=== PATIENT | male | born 1955 | race Caucasian/White ===

== ENCOUNTER 2020-05-22 08:13 | Emergency (ER) | payer MEDICARE, MEDICAID, SELFPAY ==
[2020-05-22 08:22] VITALS: BP 188/107; PULSE 79; RESP 18; TEMP 36.8; O2SAT 97; BMI 22.2
--- NOTE | 2020-05-22 08:40 | XR_ITS ---
EXAMINATION: XR KNEE, RIGHT CLINICAL INFORMATION: Swelling and pain COMPARISON: None TECHNIQUE: Four views of the right knee. FINDINGS: Bones and soft tissues are normal. No fracture or joint effusion. Alignment is anatomic. Joint spaces are well maintained. No abnormal soft tissue calcification. XR/XR knee RT 4V IMPRESSION: Unremarkable right knee exam
--- NOTE | 2020-05-22 08:51 | ED_ITS ---
HPI - General Adult General Chief complaint: Extremity Injury, Lower <Olive Stephens NP - Last Filed: 05/22/20 11:46> Stated complaint: swollen knee cap <Olive Stephens NP - Last Filed: 05/22/20 11:46> Time Seen by Provider: 05/22/20 08:34 <Olive Stephens NP - Last Filed: 05/22/20 11:46> Source: patient <Olive Stephens NP - Last Filed: 05/22/20 11:46> Mode of arrival: ambulatory <Olive Stephens NP - Last Filed: 05/22/20 11:46> Limitations: no limitations <Olive Stephens NP - Last Filed: 05/22/20 11:46> History of Present Illness HPI narrative: 65-year-old male with a past medical history of hypertension not currently on any medications here with right knee swelling last week. No injury or trauma. No pain, redness, warmth, fevers or chills. <Olive Stephens NP - Last Filed: 05/22/20 11:46> Onset (ago): week(s) (1 week ) <Olive Stephens NP - Last Filed: 05/22/20 11:46> Radiation: non-radiation <Olive Stephens NP - Last Filed: 05/22/20 11:46> Severity: similar to prior episodes (no pain ) <Olive Stephens NP - Last Filed: 05/22/20 11:46> Relieving factors: none <Olive Stephens NP - Last Filed: 05/22/20 11:46> Exacerbating factors: none <Olive Stephens NP - Last Filed: 05/22/20 11:46> Associated symptoms: denies other symptoms <Olive Stephens NP - Last Filed: 05/22/20 11:46> Treatments prior to arrival: none <Olive Stephens NP - Last Filed: 05/22/20 11:46> Related Data Home medications: Previous Rx's Medication Instructions Recorded lisinopril 10 mg PO DAILY #30 tab 05/22/20 <Olive Stephens NP - Last Filed: 05/22/20 11:46> Allergies/adverse reactions: Allergies Allergy/AdvReac Type Severity Reaction Status Date / Time influenza virus vaccine, Allergy Unknown UNKNOWN Verified 05/22/20 08:35 specific [FLU VACCINE] <Olive Stephens NP - Last Filed: 05/22/20 11:46> Review of Systems Review of Systems: Yes all other systems are reviewed and are negative <Olive Stephens NP - Last Filed: 05/22/20 11:46> Constitutional: Constitutional: Reports no additional constitutional complaints, Denies body ache(s), Denies chills, Denies fever(s), Denies headache(s) and Denies weakness <Olive Stephens NP - Last Filed: 05/22/20 11:46> Eyes: Eyes: Reports no additional eye complaints and Denies change in vision <Olive Stephens NP - Last Filed: 05/22/20 11:46> ENT: Reports system reviewed and no additional complaints, except as documented, Denies dizziness, Denies headache(s), Denies nasal congestion, Denies nasal discharge and Denies neck pain <Olive Stephens NP - Last Filed: 05/22/20 11:46> Cardiovascular: Cardiovascular: Reports no additional cardiovascular complaints, Denies chest pain, Denies leg edema and Denies dyspnea <Olive Stephens NP - Last Filed: 05/22/20 11:46> Respiratory: Respiratory: Reports no additional respiratory complaints, Denies cough and Denies dyspnea <Olive Stephens NP - Last Filed: 05/22/20 11:46> Gastrointestinal: Gastrointestinal: Reports no additional gastrointestinal complaints, Denies abdominal pain, Denies diarrhea, Denies nausea and Denies vomiting <Olive Stephens NP - Last Filed: 05/22/20 11:46> Genitourinary: Genitourinary: Denies urinary incontinence <Olive Stephens NP - Last Filed: 05/22/20 11:46> Musculoskeletal: Musculoskeletal: Reports no additional musculoskeletal complaints, Denies back pain, Denies arthralgias, Reports joint swelling, Denies neck pain, Denies numbness and Denies tingling <Olive Stephens NP - Last Filed: 05/22/20 11:46> Integumentary/Breasts: Skin/Breast: Reports system reviewed and no additional complaints, except as docu and Denies rash <Olive Stephens NP - Last Filed: 05/22/20 11:46> Neurologic: Reports system reviewed and no additional complaints, except as documented, Denies Abnormal speech present, Denies dizziness, Denies headache(s), Denies numbness, Denies tingling and Denies weakness <Olive Stephens NP - Last Filed: 05/22/20 11:46> [facility] Past Medical History Attestation statement: The following information was validated with the patient. <Olive Stephens NP - Last Filed: 05/22/20 11:46> Source: obtained from family and nursing notes reviewed <Olive Stephens NP - Last Filed: 05/22/20 11:46> Medical History: Medical History HTN (hypertension) <Olive Stephens NP - Last Filed: 05/22/20 11:46> Surgical History: Surgical History Hx of abdominal surgery <Olive Stephens NP - Last Filed: 05/22/20 11:46> Social History Social History: Social History Alcohol intake: current Alcohol intake frequency: 0-2 drinks per day Alcohol type: beer Smoking Status: Former smoker Substance Use Type: Marijuana Advance Directives: No Advance Directives Information Provided: No <Olive Stephens NP - Last Filed: 05/22/20 11:46> Physical Exam Vital Signs: Vital Signs: Vital Signs Temp Pulse Resp BP Pulse Ox 05/22/20 10:23 65 159/91 H 97 05/22/20 09:41 80 197/107 H 05/22/20 08:22 98.3 F 79 18 188/107 H 97 Body Mass Index 22.2 <Olive Stephens NP - Last Filed: 05/22/20 11:46> Vital Signs: Vital Signs Temp Pulse Resp BP Pulse Ox 05/22/20 10:23 65 159/91 H 97 05/22/20 09:41 80 197/107 H 05/22/20 08:22 98.3 F 79 18 188/107 H 97 Body Mass Index 22.2 <Maykel Begum MD - Last Filed: 05/22/20 09:38> Const: General: cooperative, healthy appearing, comfortable and no acute distress <Olive Stephens NP - Last Filed: 05/22/20 11:46> Orientation/consciousness: patient oriented x3 <Olive Stephens NP - Last Filed: 05/22/20 11:46> Limitations: no limitations <Olive Stephens NP - Last Filed: 05/22/20 11:46> HENMT: Head: Yes normal to inspection <Olive Stephens NP - Last Filed: 05/22/20 11:46> Ears: hearing grossly normal bilaterally <Olive Stephens NP - Last Filed: 05/22/20 11:46> General nose exam: Normal external nose present <Olive Stephens NP - Last Filed: 05/22/20 11:46> Face and sinus: Yes normal facial exam <Olive Stephens NP - Last Filed: 05/22/20 11:46> Mouth: Normal oral and palatal mucosa present <Olive Stephens NP - Last Filed: 05/22/20 11:46> Throat: Yes posterior oropharynx normal <Olive Stephens NP - Last Filed: 05/22/20 11:46> Eyes: General: appearance normal, both eyes and all related structures <Olive Stephens NP - Last Filed: 05/22/20 11:46> Pupils: Equal, round and reactive pupils present <Olive Stephens NP - Last Filed: 05/22/20 11:46> Neck: Neck: Yes normal visual inspection <Olive Stephens NP - Last Filed: 05/22/20 11:46> Chest: Chest palpation & inspection: normal inspection of the chest <Olive Stephens NP - Last Filed: 05/22/20 11:46> Resp: Effort & Inspection: normal respiratory effort <Olive Stephens NP - Last Filed: 05/22/20 11:46> Auscultation: clear to auscultation bilaterally <Olive Stephens NP - Last Filed: 05/22/20 11:46> Cardio: Rate: regular rate <Olive Stephens NP - Last Filed: 05/22/20 11:46> Rhythm: regular rhythm <Olive Stephens NP - Last Filed: 05/22/20 11:46> Peripheral pulses: Peripheral pulses 2+ throughout <Olive Stephens NP - Last Filed: 05/22/20 11:46> GI: Inspection: Yes normal to inspection <Olive Stephens NP - Last Filed : 05/22/20 11:46> Palpation (GI): Soft to palpation and nontender <Olive Stephens NP - Last Filed: 05/22/20 11:46> Auscultation: normal bowel sounds <Olive Stephens NP - Last Filed: 05/22/20 11:46> Back/Spine/Pelvis: Thoracic/Lumbar Spine: thoracic and lumbar spine normal to inspection <Olive Stephens NP - Last Filed: 05/22/20 11:46> Skin: General skin exam: no rashes or lesions noted <Olive Stephens NP - Last Filed: 05/22/20 11:46> Neuro: General: patient oriented x3, no focal motor deficits and normal sensation to monofilament <Olive Stephens NP - Last Filed: 05/22/20 11:46> Cranial nerves: Yes Equal, round and reactive pupils present <Olive Stephens NP - Last Filed: 05/22/20 11:46> Cognition (Neuro): normal cognition <Olive Stephens NP - Last Filed: 05/22/20 11:46> Speech: No Abnormal speech present <Olive Stephens NP - Last Filed: 05/22/20 11:46> Gait exam (Neuro): Normal gait present <Olive Stephens NP - Last Filed: 05/22/20 11:46> Motor exam (neuro): 5/5 motor strength present throughout <Olive Stephens NP - Last Filed: 05/22/20 11:46> Extrem: General: Yes normal to inspection <Olive Stephens NP - Last Filed: 05/22/20 11:46> Right lower extremity: full ROM, edema ( Moderate swelling over the patellar and suprapatellar area.) Details: non-pitting and knee ( No pain, no warmth, erythema.); no cyanosis <Olive Stephens NP - Last Filed: 05/22/20 11:46> Course Course Course Narrative: Atraumatic right knee swelling x1 week. no pain, swelling, warmth, fevers or chills. Full range of motion. Will check imaging. Asymptomatic hypertension. 0930- X-rays are unremarkable. Patient has very elevated blood pressures. No PCP. Will trial lisiniopril and re-assess. 1145-Repeat BP 150/90. reviewed worrisome signs and symptoms when to return to the emergency department. Comfortable discharge home. <Olive Stephens NP - Last Filed: 05/22/20 11:46> I have discussed the case and management with the HORACE <Maykel Begum MD - Last Filed: 05/22/20 09:38> Medical Decision Making Medical Records Medical records reviewed: Yes I reviewed the patient's medical records. <Olive Stephens NP - Last Filed: 05/22/20 11:46> Lab Data Lab results reviewed: Yes I reviewed the patient's lab results. <Olive Stephens NP - Last Filed: 05/22/20 11:46> Imaging Data knee xray: Attestation: I personally reviewed and interpreted this imaging study as follows: <Olive Stephens NP - Last Filed: 05/22/20 11:46> Radiologist's impression: EXAMINATION: XR KNEE, RIGHT CLINICAL INFORMATION: Swelling and pain COMPARISON: None TECHNIQUE: Four views of the right knee. FINDINGS: Bones and soft tissues are normal. No fracture or joint effusion. Alignment is anatomic. Joint spaces are well maintained. No abnormal soft tissue calcification. XR/XR knee RT 4V IMPRESSION: Unremarkable right knee exam <Olive Stephens NP - Last Filed: 05/22/20 11:46> Discharge Plan Discharge Clinical Impression: Arthritis, Hypertension <Olive Stephens NP - Last Filed: 05/22/20 11:46> Patient Disposition: Home, Self-Care <Olive Stephens NP - Last Filed: 05/22/20 11:46> Instructions: Hypertension (ED), Arthritis (ED) <Olive Stephens NP - Last Filed: 05/22/20 11:46> Additional Instructions: Mikhail wrap for comfort Ice, elevation, rest You need to set up an appointment with a primary care doctor to manage your blood pressure. <Olive Stephens NP - Last Filed: 05/22/20 11:46> Prescriptions: New lisinopril 10 mg tablet 10 mg PO DAILY Qty: 30 RF: 0 <Olive Stephens NP - Last Filed: 05/22/20 11:46> Referrals: Physician,None [Primary Care Provider] - 2 days <Olive Stephens NP - Last Filed: 05/22/20 11:46> Interventions: ED Discharge Assessment Last Done: 05/22/20 10:58 <Olive Stephens NP - Last Filed: 05/22/20 11:46> Discharge Date/Time: 05/22/20 10:58 <Olive Stephens NP - Last Filed: 05/22/20 11:46>
[2020-05-22 09:41] VITALS: BP 197/107; PULSE 80
[2020-05-22] MEDS: lisinopriL 10 MG TABLET PO (09:41)
[2020-05-22 10:23] VITALS: BP 159/91; PULSE 65; O2SAT 97
== END 2020-05-22 10:58 | disposition home or self-care (01) ==
PROVIDERS: Emergency Provider Emergency Medicine
DX: M17.11 Unilateral primary osteoarthritis, right knee (principal); M25.471 Effusion, right ankle; I10 Essential (primary) hypertension; Z79.899 Other long term (current) drug therapy; Z87.891 Personal history of nicotine dependence
CPT/HCPCS: 73564; 99283; 99284

== ENCOUNTER 2021-08-11 10:09 | Emergency (ER) | payer MEDICARE, MEDICAID, SELFPAY ==
--- NOTE | ~2021-08-11 | XR_ITS ---
EXAMINATION: CHEST AND LEFT RIBS, LUMBAR SPINE CLINICAL INFORMATION: Pain after fall COMPARISON: Chest radiograph 03/10/2012 TECHNIQUE: 3 views lumbosacral spine, single view chest with 3 additional views left RIBS FINDINGS: Lumbar spine: Minimal degenerative changes present in the lumbar spine consisting of endplate disease. Vertebral body heights and disc spaces are well maintained. No fractures or bony destructive lesions are seen. Chest and ribs: The heart and pulmonary vessels appear normal. Bibasilar atelectasis/scarring is present increased since 2012, especially at the right lung base. No rib fractures are seen. XR/XR lumbar spine 2-3V IMPRESSION: No acute intrathoracic disease without rib fractures. Minimal degenerative changes in the lumbar spine without traumatic osseous injury.
--- NOTE | ~2021-08-11 | XR_ITS ---
EXAMINATION: CHEST AND LEFT RIBS, LUMBAR SPINE CLINICAL INFORMATION: Pain after fall COMPARISON: Chest radiograph 03/10/2012 TECHNIQUE: 3 views lumbosacral spine, single view chest with 3 additional views left RIBS FINDINGS: Lumbar spine: Minimal degenerative changes present in the lumbar spine consisting of endplate disease. Vertebral body heights and disc spaces are well maintained. No fractures or bony destructive lesions are seen. Chest and ribs: The heart and pulmonary vessels appear normal. Bibasilar atelectasis/scarring is present increased since 2012, especially at the right lung base. No rib fractures are seen. XR/XR ribs LT min 3V w CXR1V IMPRESSION: No acute intrathoracic disease without rib fractures. Minimal degenerative changes in the lumbar spine without traumatic osseous injury.
[2021-08-11 10:52] VITALS: BP 186/101; PULSE 85; RESP 19; TEMP 36.6; O2SAT 98; BMI 22.2
--- NOTE | 2021-08-11 11:01 | ED_ITS ---
HPI - Back Pain/Injury General Chief Complaint: Back Pain/Injury Stated Complaint: FALL Time Seen by Provider: 08/11/21 10:56 History of Present Illness HPI Narrative: Patient is a 66 year old male with a history of hypertension presenting to the emergency department for evaluation of left lower back pain and left lateral chest pain after mechanical slip and fall on ice 3 days ago. He reports that the pain left lateral chest pain is 6/10 worse with movement, sneezing, deep breathing. His left lower back pain is nonradiating, denies numbness or tingling of the perineum for bilateral legs, denies bladder bowel dysfunction. He has not taken any medication for this. He denies fevers, chills, nasal congestion, chest congestion, cough, shortness of breath, difficulty breathing, chest pain, palpitations. Denies nausea, vomiting, abdominal pain, dysuria, urinary frequency. Patient noted to be hypertensive 186/101. He reports that he has not taken his blood pressure medication in 3 days as he ?ran out?. He reports that he does not have any refills for this, it is unclear who has previously prescribed this for him as he reports he does not a primary care provider. He denies persistent headaches, vision changes, dizziness or lightheadedness. MD elicited complaint: back pain and fall Pertinent past history: recent trauma Onset (ago): day(s) Timing: constant Severity: moderate Pain scale (0-10): 6 Similar Symptoms Previously: No Quality: sharp and aching Location: lumbar spine and thoracic spine Radiation: none Exacerbating factors: movement, deep breaths and coughing/sneezing Relieving factors: none Context: fall Associated symptoms: denies other symptoms Treatments prior to arrival: other (none) Work related injury: No Related Data Previous Rx's Medication Instructions Recorded lisinopril 10 mg tablet 10 mg PO DAILY #30 tab 05/22/20 lisinopril 10 mg tablet 10 mg PO DAILY 14 Days #14 tab 08/11/21 Allergies Allergy/AdvReac Type Severity Reaction Status Date / Time influenza virus vaccine, Allergy Unknown UNKNOWN Verified 05/22/20 08:35 specific [FLU VACCINE] Review of Systems Review of Systems: Constitutional : No Weight loss, No Fever, No Chills, ENT/Mouth : No Hearing loss, No Ear Pain, No Nasal Congestion, No Sinus Pain, No Hoarseness, No sore throat, No Rhinorrhea, No Swallowing Difficulty Cardiovascular : No Chest Pain, No SOB Respiratory : No Cough, No Dyspnea Gastrointestinal : No Nausea, No Vomiting, No Diarrhea, No abdominal Pain, No Hematochezia, No Melena Genitourinary : No Dysuria, No Urinary Frequency, No Hematuria, No Urinary Incontinence, Musculoskeletal : positive back pain Skin : No Skin Lesions, No rash Neuro : No Weakness, No Numbness, No Paresthesias, no loss of bowel or bladder incontinence, no saddle anesthesia All other systems reviewed and are negative [facility] Past Medical History Attestation statement: The following information was validated with the patient. Source: old records reviewed Medical History HTN (hypertension) Surgical History Hx of abdominal surgery Social History Social History Alcohol intake: current Alcohol intake frequency: 0-2 drinks per day Alcohol type: beer Substance Use Type: Marijuana Advance Directives: No Advance Directives Information Provided: No Physical Exam Vital Signs: Vital Signs: Last Vital Signs Temp 98 F 08/11/21 10:52 Pulse 81 08/11/21 11:50 Resp 16 08/11/21 11:50 BP 164/92 H 08/11/21 11:50 Pulse Ox 97 08/11/21 11:50 BMI result Body Mass Index 22.2 Vital signs have been reviewed and appeared to be correct. Blood pressure elevated 186/101 (not taking his antihypertensive), on repeat was 164/92. Heart rate normal.? Respiration rate normal. Temperature normal.? Oxygen saturation normal. Appearance: Alert.?Oriented to person, place and time. No acute distress.?Normal affect. Eyes: Pupils equal, round and reactive to light.? ENT: Pharynx normal.?? Neck: Normal inspection.?Neck supple.?? CVS: + Hypertensive, palpable tenderness along the left lower lateral chest wall, no obvious deformity. Heart sounds normal. Normal heart rate and rhythm.? Pulses normal.?? Respiratory: No respiratory distress.? Lung sounds clear to auscultation bilaterally?? Abdomen: Soft and non-tender. Skin: Skin warm and dry.? Normal skin color.? Normal skin turgor.?? Extremities: No lower extremity edema.? Neuro: Moves all extremities spontaneously. Sensation intact bilaterally. No focal neuro deficits. Course Course Course Narrative: Patient is a 66-year-old male being evaluated in the emergency department for back and left lateral chest wall pain after mechanical fall. X- ray of the left ribs and chest in addition to lumbar spine to be obtained to exclude fracture. Patient to be medicated with Tylenol and ibuprofen. Disposition pending results. Patient will be provided with contact numbers for establishing a primary care provider as has known hypertension, requires appropriate outpatient follow-up. Reevaluation(s) Reevaluation #1: X-rays are normal, no fractures. The results were reviewed with patient and discussed plan of care for discharge home and follow-up precautions to return to the ED. In addition we discussed his hypertension, complications of untreated hypertension over time. Patient provided with contact information to establish new primary care provider. Patient agreeable with plan for discharge Time: 12:49 MDM - Back Pain/Injury Medical Records Attestation: I reviewed the patient's medical records. Imaging Data left rib/ chest x-ray: Attestation: I personally reviewed and interpreted this imaging study as follows: Radiologist's impression: IMPRESSION: No acute intrathoracic disease without rib fractures. lumbar spine x-ray: Attestation: I personally reviewed and interpreted this imaging study as follows: Radiologist's impression: IMPRESSION: Minimal degenerative changes in the lumbar spine without traumatic osseous injury.? Critical Care Time Critical Care Time Critical Care Time: No Discharge Plan Discharge Clinical Impression: Strain of lumbar region, Contusion of rib, Hypertension Patient Disposition: Home, Self-Care Instructions: Acute Low Back Pain (ED), Hypertension (ED) Additional Instructions: You were evaluated in the emergency department for lower back and left rib pain, you do not have any broken bones. Your pain is likely associated with a strain of the muscles in both these areas. For this you can take Tylenol and ibuprofen as needed. You can apply ice packs or heating pad to the area as well. Your blood pressure is elevated today, you have given a prescription for lisinopril, a blood pressure medication to take once daily. It is important that you establish care with a new primary care provider to continue management of your blood pressure. As we discussed, blood pressure left untreated can cause complications including stroke, heart attack coma and even . Please return to the emergency department with any new or worsening symptoms or concerns. Prescriptions: New lisinopril 10 mg tablet 10 mg PO DAILY 14 Days Qty: 14 RF: 0 No Action lisinopril 10 mg tablet 10 mg PO DAILY Qty: 30 RF: 0
[2021-08-11] MEDS: Ibuprofen 600 MG TABLET PO (11:49)
[2021-08-11 11:50] VITALS: BP 164/92; PULSE 81; RESP 16; O2SAT 97
[2021-08-11] MEDS: Acetaminophen 325 MG TABLET 650 MG PO (11:50)
== END 2021-08-11 12:55 | disposition home or self-care (01) ==
PROVIDERS: Emergency Provider Internal Medicine
DX: S39.012A Strain of muscle, fascia and tendon of lower back, initial encounter (principal); S20.212A Contusion of left front wall of thorax, initial encounter; W00.0XXA Fall on same level due to ice and snow, initial encounter; I10 Essential (primary) hypertension; Y93.01 Activity, walking, marching and hiking; Y92.9 Unspecified place or not applicable; Y99.9 Unspecified external cause status
CPT/HCPCS: 71101; 72100; 99283; 99284

== ENCOUNTER 2023-04-16 10:31 | Outpatient (REF) | payer MEDICARE, MEDICAID, SELFPAY ==
[2023-04-16 13:12] LABS: MANUAL DIFF FLAG NO
[2023-04-16 13:13] LABS: Basophils Absolute Auto 0.1 X10*3/uL (0.0-0.2); Basophils Percent Auto 1.3 % (0-2); Eosinophils Absolute Auto 0.1 X10*3/uL (0.0-0.4); Eosinophils Percent Auto 0.6 % (0-4); Hemoglobin 15.6 g/dl (14.0-18.0); Imm Gran Abs Auto 0.04 X10*3/uL (0.00-0.03); Imm Gran Pct Auto 0.4 % (0.0-0.4); Lymphocytes Absolute Auto 3.6 X10*3/uL (1.2-4.9); Lymphocytes Percent Auto 34.2 % (20-40); Mean Corpuscular HGB Conc 33.9 g/dl (31.0-36.0); Mean Corpuscular Hemoglobin 33.8 pg (27.0-33.0); Mean Corpuscular Volume 99.6 fL (80.0-98.0); Mean Platelet Volume 11.1 fL (9.4-12.4); Monocytes Absolute Auto 1.2 X10*3/uL (0.1-1.2); Monocytes Percent Auto 11.5 % (2-11); Neutrophils Absolute Auto 5.4 x10*3/uL (2.0-8.3); Platelet Count 353 X10*3/uL (160-400); Red Blood Count 4.62 X10*6/uL (4.60-5.80); Red Cell Distribution Width 14.8 % (11.0-16.0); White Blood Count 10.4 X10*3/uL (4.8-10.8)
[2023-04-16 13:20] LABS: INTERNATIONAL NORM RATIO 1.1 (0.9-1.1); Prothrombin Time 13.4 SEC (11.1-13.3)
[2023-04-16 13:48] LABS: Alanine Aminotransferase 43 U/L (0-40); Albumin Level 4.3 g/dL (3.5-5.0); Alkaline Phosphatase 57 U/L (39-117); Anion Gap 14 (12-20); Aspartate Amino Transferase 57 U/L (5-37); Bilirubin Total 0.7 mg/dL (0.0-1.0); Blood Urea Nitrogen 9 mg/dL (9-16); Calcium 9.7 mg/dL (8.4-10.2); Carbon Dioxide 23 mmol/L (22-29); Chloride 105 mmol/L (96-108); Cholesterol 183 mg/dL (<200); Estimated Glomerular Filt Rate > 60; Glucose Random 92 mg/dL (60-115); HDL Cholesterol 55 mg/dL (>40); LDL Cholesterol Calculated 116 mg/dL (<100); Potassium 3.9 mmol/L (3.3-5.1); Sodium 138 mmol/L (135-145); Total Protein 8.3 g/dL (6.5-8.0); Triglycerides 63 mg/dL (<150)
[2023-04-16 14:00] LABS: Prostate Specific Antigen 0.36 ng/mL (<0.05-4.0)
[2023-04-16 14:03] LABS: Estimated Average Glucose 91 mg/dL; Hemoglobin A1c % 4.8 % (<6.0)
[2023-04-16 14:07] LABS: TSH reflex Free T4 2.82 uIU/mL (0.32-4.0)
[2023-04-16 14:17] LABS: Folate 8.4 ng/mL (> or = 4.0); Vitamin B12 297 pg/mL (200-900)
[2023-04-17 04:08] LABS: Syphilis Screen Reactive (Nonreactive)
[2023-04-17 04:48] LABS: HBS Num1 0.12 mIU/mL (0-7.99); HBsAGNum1 0.43 S/CO (0.00-0.99); HIV AB/AG Nonreactive (Nonreactive); HIV Num 1 0.06 S/CO (0.00-0.99); Hepatitis B Core Antibody Nonreactive (Nonreactive); Hepatitis B Surface Antigen Negative (Negative); ~HepC Num1 0.06 S/CO (0.00-0.79); ~Hepatitis B Surface Antibody NONREACTIVE (Nonreactive); ~Hepatitis C Antibody Nonreactive (Nonreactive)
[2023-04-17 04:52] LABS: Hepatitis A Antibody IgG Nonreactive (Nonreactive); ~Hepatitis A Antibody IgG 0.44 S/CO (0.00-0.99)
[2023-04-18 11:33] LABS: TS Negative Control Passed; TS Panel A 0; TS Panel B 0; TS Positive Control Passed; TSpotTB Negative (Negative)
[2023-04-20 22:54] LABS: VITAMIN D (1,25 OH) D3 48 pg/mL; Vit D (1,25-Dihydroxy) Total 48 pg/mL (18-72); Vitamin D (1,25 OH) D2 <8 pg/mL
[2023-04-28 08:51] LABS: RPR Quantitative Reactive 1:1 (Nonreactive); T.Pallidum Particle Agg Test Reactive (Nonreactive)
== END 2023-04-16 10:32 | disposition home or self-care (01) ==
LOC: HO.HHCL 10:31
PROVIDERS: Visit Provider Student in an Organized Health Care Education/Training Program
DX: Z00.00 Encounter for general adult medical examination without abnormal findings (principal); E55.9 Vitamin D deficiency, unspecified; R31.21 Asymptomatic microscopic hematuria; Z12.5 Encounter for screening for malignant neoplasm of prostate; Z20.2 Contact with and (suspected) exposure to infections with a predominantly sexual mode of transmission; Z11.59 Encounter for screening for other viral diseases; Z72.89 Other problems related to lifestyle
CPT/HCPCS: 36415; 80053; 80061; 82607; 82652; 82746; 83036; 84153; 84443; 85025; 85610; 86481; 86592; 86704; 86706; 86708; 86780; 86803; 87340; 87389

== ENCOUNTER 2023-04-17 08:40 | Outpatient (REF) | payer MEDICARE, MEDICAID, SELFPAY ==
[2023-04-17 12:12] LABS: Creatinine Urine 195.92 mg/dL; Microalbum/Creatinine Ratio Ur 6.1 ug/mg cr (<30)
[2023-04-17 14:13] LABS: CT PCR NOT DETECTED (Not Detect.); NG PCR NOT DETECTED (Not Detect.)
== END 2023-04-17 08:41 | disposition home or self-care (01) ==
LOC: HO.HHCLNP 08:40
PROVIDERS: Visit Provider Student in an Organized Health Care Education/Training Program
DX: Z00.00 Encounter for general adult medical examination without abnormal findings (principal); Z20.2 Contact with and (suspected) exposure to infections with a predominantly sexual mode of transmission
CPT/HCPCS: 0353U; 82043; 82570

== ENCOUNTER 2023-12-28 07:43 | Emergency (ER) | payer MEDICARE, MEDICAID, SELFPAY ==
--- NOTE | ~2023-12-28 | XR_ITS ---
EXAMINATION: XR LUMBOSACRAL SPINE CLINICAL INFORMATION: Spontaneous lower back pain COMPARISON: Lumbar radiograph from 08/11/2021 TECHNIQUE: Three views of the lumbosacral spine. FINDINGS: 5 nonrib-bearing lumbar-type vertebral bodies. No acute visible fracture or dislocation. Levocurvature of the thoracolumbar junction. Multilevel degenerative changes with disc space narrowing, osteophyte formation, and lower lumbar spine facet arthropathy. Vertebral body has a spaces are maintained. Posterior elements are intact. Paraspinal soft tissues are unremarkable. Bowel gas is unremarkable. XR/XR lumbar spine 2-3V IMPRESSION: 1. No acute visible fracture or dislocation. 2. Levocurvature of the thoracolumbar junction. 3. Multilevel degenerative changes.
--- NOTE | ~2023-12-28 | CT_ITS ---
EXAMINATION: CT ABDOMEN AND PELVIS WITH CONTRAST CLINICAL INFORMATION: Right flank pain COMPARISON: 12/10/2016 TECHNIQUE: Multidetector volumetric images were obtained from the superior aspect of the liver through the pubic symphysis following administration 85 mL of Omnipaque 350 intravenous contrast. Sagittal and coronal reformatted images were obtained on the technologist's workstation. Oral contrast: No This CT examination was performed using dose optimization techniques as appropriate, variously including the following: *Automated exposure control *Adjustment of mA and/or kV according to patient size (this includes techniques or standardized protocols for targeted exams where dose is matched to indication/reason for exam; i.e. extremities or head) *Use of iterative reconstruction technique DLP: 422 mGy-cm FINDINGS: LUNG BASES: The visualized lung bases are unremarkable. LIVER, GALLBLADDER, AND BILIARY TREE: The liver is decreased in attenuation consistent with hepatic steatosis. Calcified granuloma seen scattered within the liver. No focal hepatic lesion or biliary ductal dilatation is present. The gallbladder is unremarkable with no evidence of radiopaque gallstones, gallbladder wall thickening, or obvious pericholecystic inflammatory changes. PANCREAS: Unremarkable. SPLEEN: Status post splenectomy ADRENAL GLANDS: Unremarkable. KIDNEYS AND URETERS: The kidneys are normal in size, shape, and attenuation. No hydronephrosis, hydroureter, or calculi seen. No perinephric stranding. BLADDER: Unremarkable. GASTROINTESTINAL TRACT: The small bowel are unremarkable. Diverticula seen within the sigmoid colon without evidence of acute diverticulitis The appendix is unremarkable. ABDOMINAL WALL: No significant hernia is appreciated. No focal inflammatory changes along the bilateral paraspinal muscles LYMPH NODES: Normal. VASCULAR: Unremarkable. PELVIC VISCERA: The prostate and seminal vesicles are unremarkable. OSSEOUS STRUCTURES: Posterior facet joint arthropathy is seen within the lumbar spine. CT/CT abdomen pelvis w IV con IMPRESSION: 1. No acute process. 2. Hepatic steatosis. 3. Status post splenectomy. 4. Diverticulosis.
--- NOTE | ~2023-12-28 | XR_ITS ---
EXAMINATION: XR HIP, RIGHT CLINICAL INFORMATION: Atraumatic right hip pain COMPARISON: None available. TECHNIQUE: 2 views of the pelvis 2 views of the right hip FINDINGS: No acute visible fracture or dislocation. Degenerative arthropathy of the bilateral femoral acetabular joints. Degenerative changes of the lumbosacral spine. Joint space alignment are otherwise maintained. Soft tissues are unremarkable. Pelvic phleboliths are noted. XR/XR hip RT w PEL1V IMPRESSION: 1. No acute visible fracture or dislocation. 2. Degenerative arthropathy of the bilateral femoral acetabular joints.
[2023-12-28 07:59] VITALS: BP 166/115; PULSE 100; RESP 16; TEMP 36.1; O2SAT 97; BMI 23.7
--- NOTE | 2023-12-28 08:28 | ED_ITS ---
HPI - General Adult General Chief complaint: Back Pain/Injury Stated complaint: Back pain Time Seen by Provider: 12/28/23 08:28 History of Present Illness HPI narrative: The patient is a 68-year-old male who comes to the hospital because he has had worsening right lower back pain over the last 24-48 hours. He says that was no injury. He says he did not strain himself in any way. He says he does not have a history of significant problems with back pain. He has had no fever, sweats, chills. He has had no bowel or bladder control difficulty. The patient says that the pain was quite severe yesterday and he could not do much. This morning he could barely walk because of the pain. His family members helped him to the hospital. He has no numbness or tingling in the leg. The pain does not shoot down his right leg. He does not feel that he has any weakness that is not related to his pain. The patient says that he has a surgical history of a surgery on a perforated ulcer. He has a large midline abdominal scar. This was many years ago at a hospital in [facility]. Related Data Previous Rx's ?Medication ?Instructions ?Recorded lisinopril 10 mg tablet 10 mg PO DAILY #30 tabs 05/22/20 lisinopril 10 mg tablet 10 mg PO DAILY 14 days #14 tabs 08/11/21 ibuprofen 600 mg tablet 600 mg PO Q6H PRN pain #14 tabs 12/28/23 morphine 15 mg immediate release 15 mg PO Q6H PRN pain #10 tabs 12/28/23 tablet Allergies Allergy/AdvReac Type Severity Reaction Status Date / Time No Known Allergies Allergy Verified 12/28/23 08:02 Review of Systems 2 Review of Systems: Yes all other systems are reviewed and are negative [facility] Past Medical History Medical History HTN (hypertension) Surgical History Hx of abdominal surgery Social History Social History Alcohol intake: current Alcohol intake frequency: 0-2 drinks per day Alcohol type: beer Substance Use Type: Marijuana Advance Directives: Yes Advance Directives Information Provided: Yes Advance Directives on File: No Do you have a plan to hurt others: No Plan Physical Exam ED Vital Signs: Vital Signs - 24 hr 12/28/23 07:59 12/28/23 10:00 12/28/23 13:56 Temperature 96.9 F 98.8 F 98.4 F Pulse Rate 100 87 71 Respiratory Rate 16 Blood Pressure 166/115 H 179/101 H 156/84 H Pulse Oximetry 97 96 94 Oxygen Delivery Method Room Air Room Air Room Air BMI result Body Mass Index 23.7 Const Other: The patient is a slim 68-year-old male who was sitting in a wheelchair. He was awake and alert with a pleasant demeanor. While sitting he did not seem toxic or obviously ill. However when he tried to stand he seemed to have severe discomfort in the region of his right hip and right flank and he was unable to weight bear. HENMT Other: Face is symmetrical. Mucous membranes moist. Eyes Other: Pupils are round equal, conjunctivae clear Neck Other: No adenopathy, neck is supple Resp Effort & Inspection: normal respiratory effort Auscultation: clear to auscultation bilaterally Cardio Rate: regular rate Rhythm: regular rhythm Heart sounds: S1 normal heart sound present and S2 normal heart sound present GI Other: Abdomen was soft and nontender Other: External genitalia is unremarkable. Scrotum is soft and nontender. Back/Spine/Pelvis Other: The patient has a lot of tenderness with palpation of the musculature of the right flank and around the left side of the pelvis generally. I could put the right hip through a reasonably good range of motion. There was no midline vertebral tenderness in the back. Skin Other: Skin is dry and unremarkable Neuro Other: The patient is awake and alert with a normal mental status. He has intact sensation in both legs with no saddle anesthesia. At 1st the patient seemed to have a lot of pain when he moves his right leg so strength was difficult to assess. He did not have any obvious weakness. Later his pain was better and he had full-strength of the right leg as well as his other extremities. Toes go down bilaterally. 2+ reflexes at the knees. Minimal ankle reflexes on either side. Initially the patient seemed unable to weight bear on the right leg because of pain. Later his pain was better and he was able to walk with an unremarkable gait. The patient is neurologically intact. Medications Administered Discontinued Medications Generic Name Dose Route Start Last Admin Trade Name Katie PRN Reason Stop Dose Admin Acetaminophen 975 mg 12/28/23 09:47 12/28/23 10:23 Acetaminophen 325 Mg Tablet PO 12/28/23 09:48 975 mg ONCE ONE Administration Hydromorphone HCl 1 mg 12/28/23 08:46 12/28/23 09:44 Hydromorphone Hcl 1 Mg/Ml Syringe IM 12/28/23 08:47 Not Given ONCE ONE Protocol Ibuprofen 600 mg 12/28/23 09:47 12/28/23 10:23 Ibuprofen 600 Mg Tablet PO 12/28/23 09:48 600 mg ONCE ONE Administration Iohexol 100 ml 12/28/23 13:31 12/28/23 13:31 Iohexol 350 Mg/Ml 100 Ml Infus..Btl IV 12/28/23 13:32 85 ml ONCE ONE Administration Oxycodone HCl 5 mg 12/28/23 09:47 12/28/23 10:23 Oxycodone Hcl Immed Release 5 Mg Tablet PO 12/28/23 09:48 5 mg ONCE ONE Administration Medical Decision Making Medical Decision Making MDM Narrative: The patient presented with atraumatic right-sided flank or hip area pain that was sufficiently severe when he tried to weight bear that he really could not walk. There were no neurological symptoms associated with this and the patient did not think that he had had any fever, sweats, chills. The patient's pain and inability to walk seemed very impressive. When sitting he did not seem in much pain however. X-rays of the lumbar spine and right hip were done which were unremarkable. [place] [address] an elevated CRP. This prompted my concern for some kind of an infectious process. I was concerned perhaps for something like a right-sided psoas abscess. A CT scan of the abdomen and pelvis was done that was unremarkable. I added on an ESR which was normal at 6. I had initially intended to give the patient IM medication but the patient refused. He was given oral medication instead. Remarkably the patient had dramatic improvement in his pain to the point where he could walk without assistance. At that point I felt he was safe for discharge. Lab Data 12/28/23 10:40 06/09/24 10:40 Labs: Lab Results 12/28/23 12/28/23 12/28/23 Range/Units 10:40 12:54 12:55 WBC 16.1 H (4.8-10.8) X10*3/uL RBC 4.91 (4.60-5.80) X10*6/uL Hgb 16.7 (14.0-18.0) g/dl Hct 47.5 (42.0-52.0) % MCV 96.7 (80.0-98.0) fL MCH 34.0 H (27.0-33.0) pg MCHC 35.2 (31.0-36.0) g/dl RDW 13.9 (11.0-16.0) % Plt Count 402 H (160-400) X10*3/uL MPV 9.2 L (9.4-12.4) fL Immature Gran % (Auto) 0.6 H (0.0-0.4) % Neut % (Auto) 72.9 (45-73) % Lymph % (Auto) 15.0 L (20-40) % [place] % (Auto) 10.8 (2-11) % Eos % (Auto) 0.0 (0-4) % Baso % (Auto) 0.7 (0-2) % Lymph # (Auto) 2.4 (1.2-4.9) X10*3/uL [place] # (Auto) 1.7 H (0.1-1.2) X10*3/uL Eos # (Auto) 0.0 (0.0-0.4) X10*3/uL Baso # (Auto) 0.1 (0.0-0.2) X10*3/uL Abs Immat Gran (auto) 0.09 H (0.00-0.03) X10*3/uL Absolute Neuts (auto) 11.7 H (2.0-8.3) x10*3/uL Absolute Nucleated RBC 0.000 (0.0-0.012) X10*3/uL Nucleated RBC % (auto) 0.0 (0.0-0.2) /100WBC Smear Tech's Comments VERIFIED ESR 7 (0-15) MM/HR PT 14.7 H (11.1-13.3) SEC INR 1.2 H (0.9-1.1) Sodium 134 L (135-145) mmol/L Potassium 4.0 (3.3-5.1) mmol/L Chloride 104 (96-108) mmol/L Carbon Dioxide 22 (22-29) mmol/L Anion Gap 12 (12-20) BUN 9 (9-16) mg/dL Creatinine 0.86 (0.5-1.4) mg/dL Estim Creat Clear Calc 83.7 Estimated GFR > 60 Random Glucose 123 H (60-115) mg/dL Lactic Acid 1.2 (0.5-2.0) mmol/L Calcium 9.8 (8.4-10.2) mg/dL Magnesium 2.5 (1.6-2.6) mg/dL Total Bilirubin 1.3 H (0.0-1.0) mg/dL Direct Bilirubin 0.4 (0.0-0.5) mg/dL AST 24 (5-37) U/L ALT 15 (0-40) U/L Alkaline Phosphatase 73 (39-117) U/L C-Reactive Protein 7.62 H (< or = 0.50) mg/dL Total Protein 8.8 H (6.5-8.0) g/dL Albumin 4.3 (3.5-5.0) g/dL Urine Color Urine Appearance Urine pH (5.0-9.0) Ur Specific Dr[place]coll (1.005-1.025) Urine Protein (Neg-Trace) mg/dL Urine Glucose (UA) (Negative) mg/dL Urine Ketones (Negative) mg/dL Urine Blood (Negative) Urine Nitrite (Negative) Ur Leukocyte Esterase (Negative) Urine RBC (0-2) /HPF Urine WBC (0-5) /HPF Ur Squamous Epith Cells (0-2) /HPF Urine Bacteria (None Seen) Hyaline Casts (0-2) /LPF Ethyl Alcohol < 10 mg/dL 12/28/23 Range/Units 15:47 WBC (4.8-10.8) X10*3/uL RBC (4.60-5.80) X10*6/uL Hgb (14.0-18.0) g/dl Hct (42.0-52.0) % MCV (80.0-98.0) fL MCH (27.0-33.0) pg MCHC (31.0-36.0) g/dl RDW (11.0-16.0) % Plt Count (160-400) X10*3/uL MPV (9.4-12.4) fL Immature Gran % (Auto) (0.0-0.4) % Neut % (Auto) (45-73) % Lymph % (Auto) (20-40) % [place] % (Auto) (2-11) % Eos % (Auto) (0-4) % Baso % (Auto) (0-2) % Lymph # (Auto) (1.2-4.9) X10*3/uL [place] # (Auto) (0.1-1.2) X10*3/uL Eos # (Auto) (0.0-0.4) X10*3/uL Baso # (Auto) (0.0-0.2) X10*3/uL Abs Immat Gran (auto) (0.00-0.03) X10*3/uL Absolute Neuts (auto) (2.0-8.3) x10*3/uL Absolute Nucleated RBC (0.0-0.012) X10*3/uL Nucleated RBC % (auto) (0.0-0.2) /100WBC Smear Tech's Comments ESR (0-15) MM/HR PT (11.1-13.3) SEC INR (0.9-1.1) Sodium (135-145) mmol/L Potassium (3.3-5.1) mmol/L Chloride (96-108) mmol/L Carbon Dioxide (22-29) mmol/L Anion Gap (12-20) BUN (9-16) mg/dL Creatinine (0.5-1.4) mg/dL Estim Creat Clear Calc Estimated GFR Random Glucose (60-115) mg/dL Lactic Acid (0.5-2.0) mmol/L Calcium (8.4-10.2) mg/dL Magnesium (1.6-2.6) mg/dL Total Bilirubin (0.0-1.0) mg/dL Direct Bilirubin (0.0-0.5) mg/dL AST (5-37) U/L ALT (0-40) U/L Alkaline Phosphatase (39-117) U/L C-Reactive Protein (< or = 0.50) mg/dL Total Protein (6.5-8.0) g/dL Albumin (3.5-5.0) g/dL Urine Color Yellow Urine Appearance Clear Urine pH 7.0 (5.0-9.0) Ur Specific [place] >= 1.030 H (1.005-1.025) Urine Protein 30 (1+) H (Neg-Trace) mg/dL Urine Glucose (UA) Negative (Negative) mg/dL Urine Ketones Trace (Negative) mg/dL Urine Blood Negative (Negative) Urine Nitrite Negative (Negative) Ur Leukocyte Esterase Negative (Negative) Urine RBC 3-5 H (0-2) /HPF Urine WBC 0-5 (0-5) /HPF Ur Squamous Epith Cells 0-2 (0-2) /HPF Urine Bacteria None Seen (None Seen) Hyaline Casts 0-2 (0-2) /LPF Ethyl Alcohol mg/dL Discharge Plan Discharge Clinical Impression: Acute right-sided low back pain, Difficulty walking Patient Disposition: Home, Self-Care Additional Instructions: Please plan on taking 2 extra-strength acetaminophen (Tylenol) up to 3 times a day as needed for pain. You may also take ibuprofen up to every 6 hours as needed for pain. Additionally I have sent a prescription for morphine tablets to your pharmacy which you may use in addition to the above medications. Take 1 tablet every 6 hours as needed when absolutely necessary. Please plan on contacting your regular doctor's office tomorrow to make a follow up appointment to discuss this pain further. If at any point you feel significantly worse, especially if you develop any fever, return to the emergency room. Prescriptions: New ibuprofen 600 mg tablet 600 mg PO Q6H PRN (Reason: pain) Qty: 14 0RF morphine 15 mg tablet 15 mg PO Q6H PRN (Reason: pain) Qty: 10 0RF Rx Instructions: Partial Fill upon patient request. No Action lisinopril 10 mg tablet 10 mg PO DAILY Qty: 30 0RF lisinopril 10 mg tablet 10 mg PO DAILY 14 Days Qty: 14 0RF Referrals: [facility] [Provider Group] (Right low back pain, leukocytosis, elevated CRP) Interventions: ED Discharge Assessment Last Done: 12/28/23 16:02 Discharge Date/Time: 12/28/23 16:02 Print Language: Latvian
--- NOTE | 2023-12-28 09:22 | MHC.EDTECH ---
This pct attempted to draw labs but the patient states he doesnt want and labs drawn because its to painful.Provider Aware
[2023-12-28 10:00] VITALS: BP 179/101; PULSE 87; TEMP 37.1; O2SAT 96
[2023-12-28] MEDS: Acetaminophen 325 MG TABLET 975 MG PO (10:23)
[2023-12-28] MEDS: oxyCODONE HCl Immed Release 5 MG TABLET PO (10:23)
[2023-12-28] MEDS: Ibuprofen 600 MG TABLET PO (10:23)
[2023-12-28 10:51] LABS: Basophils Absolute Auto 0.1 X10*3/uL (0.0-0.2); Basophils Percent Auto 0.7 % (0-2); Hematocrit 47.5 % (42.0-52.0); Hemoglobin 16.7 g/dl (14.0-18.0); Imm Gran Abs Auto 0.09 X10*3/uL (0.00-0.03); Imm Gran Pct Auto 0.6 % (0.0-0.4); Lymphocytes Absolute Auto 2.4 X10*3/uL (1.2-4.9); MANUAL DIFF FLAG SCAN; Mean Corpuscular HGB Conc 35.2 g/dl (31.0-36.0); Mean Corpuscular Volume 96.7 fL (80.0-98.0); Mean Platelet Volume 9.2 fL (9.4-12.4); Monocytes Absolute Auto 1.7 X10*3/uL (0.1-1.2); Monocytes Percent Auto 10.8 % (2-11); Neutrophils Absolute Auto 11.7 x10*3/uL (2.0-8.3); Neutrophils Percent Auto 72.9 % (45-73); Platelet Count 402 X10*3/uL (160-400); Red Blood Count 4.91 X10*6/uL (4.60-5.80); Red Cell Distribution Width 13.9 % (11.0-16.0); SCAN SMEAR FLAG 1; White Blood Count 16.1 X10*3/uL (4.8-10.8)
[2023-12-28 11:08] LABS: Alanine Aminotransferase 15 U/L (0-40); Albumin Level 4.3 g/dL (3.5-5.0); Alkaline Phosphatase 73 U/L (39-117); Anion Gap 12 (12-20); Aspartate Amino Transferase 24 U/L (5-37); Bilirubin Direct 0.4 mg/dL (0.0-0.5); Bilirubin Total 1.3 mg/dL (0.0-1.0); Blood Urea Nitrogen 9 mg/dL (9-16); C Reactive Protein 7.62 mg/dL (< or = 0.50); Calcium 9.8 mg/dL (8.4-10.2); Carbon Dioxide 22 mmol/L (22-29); Chloride 104 mmol/L (96-108); Creatinine Clr Calc Pharmacy 83.7; Estimated Glomerular Filt Rate > 60; Glucose Random 123 mg/dL (60-115); Sodium 134 mmol/L (135-145); Total Protein 8.8 g/dL (6.5-8.0)
[2023-12-28 11:12] LABS: SLIDE REVIEW VERIFIED
[2023-12-28 12:38] LABS: Magnesium 2.5 mg/dL (1.6-2.6)
[2023-12-28 13:12] LABS: INTERNATIONAL NORM RATIO 1.2 (0.9-1.1); Prothrombin Time 14.7 SEC (11.1-13.3)
[2023-12-28 13:21] LABS: Lactic Acid 1.2 mmol/L (0.5-2.0)
[2023-12-28 13:24] LABS: Ethanol < 10 mg/dL
[2023-12-28] MEDS: iohexoL 350 MG/ML 100 ML INFUS..BTL IV (13:31)
[2023-12-28 13:56] VITALS: BP 156/84; PULSE 71; TEMP 36.9; O2SAT 94
[2023-12-28 14:56] LABS: Erythrocyte Sedimentation Rate 7 MM/HR (0-15)
--- NOTE | 2023-12-28 15:00 | PC.NURSE ---
Patient able to stand and walk around bedside unassisted. States that the pain is gone.
[2023-12-28 16:02] VITALS: BP 158/92; PULSE 72; RESP 18; TEMP 36.8; O2SAT 98
[2023-12-28 16:02] LABS: Appearance Urine Clear; Color Urine Yellow; Glucose Urine UA Negative (Negative); Leukocyte Esterase Urine Negative (Negative); Nitrite Urine Negative (Negative); Specific Gravity - Urine >= 1.030 (1.005-1.025); UMIC TRIGGER UACC YES; Urine Blood Negative (Negative); Urine Ketones Trace mg/dL (Negative); Urine Protein 30 (1+) mg/dL (Neg-Trace)
[2023-12-28 16:47] LABS: Bacteria Urine None Seen (None Seen); Hyaline Casts Urine 0-2 /LPF (0-2); Squamous Epithelial Cell Urine 0-2 /HPF (0-2); WBC Urine 0-5 /HPF (0-5)
== END 2023-12-28 16:02 | disposition home or self-care (01) ==
PROVIDERS: Emergency Provider Emergency Medicine
DX: M54.50 Low back pain, unspecified (principal); R26.2 Difficulty in walking, not elsewhere classified; R79.82 Elevated C-reactive protein (CRP); I10 Essential (primary) hypertension
CPT/HCPCS: 36415; 72100; 73502; 74177; 80048; 80076; 80307; 81001; 81003; 83605; 83735; 85025; 85610; 85652; 86140; 87040; 87147; 87205; 99284; Q9967

== ENCOUNTER 2024-03-19 07:54 | Emergency (ER) | payer MEDICARE, MEDICAID, SELFPAY ==
--- NOTE | ~2024-03-19 | CT_ITS ---
EXAMINATION: CT HEAD WITHOUT CONTRAST CT CERVICAL SPINE WITHOUT CONTRAST CLINICAL INFORMATION: Fall. COMPARISON: CTA head and neck 06/30/2017. TECHNIQUE: Contiguous axial imaging was performed from the skull base to vertex without intravenous administration of contrast. Contiguous axial imaging was performed from the upper chest through the skull base without intravenous administration of contrast. Coronal and sagittal reformats were obtained at the acquisition workstation. This CT examination was performed using dose optimization techniques as appropriate, variously including the following: *Automated exposure control *Adjustment of mA and/or kV according to patient size (this includes techniques or standardized protocols for targeted exams where dose is matched to indication/reason for exam; i.e. extremities or head) *Use of iterative reconstruction technique DLP: 926 mGy-cm FINDINGS: Head: Encephalomalacia with volume loss in the left posterior parietal/occipital lobe with mild associated ex vacuo dilatation of the posterior left lateral ventricle. Chronic lacunar infarct in the bilateral caudate nuclei and left basilar ganglia. Few additional age indeterminate bilateral lacunar infarcts in the basal ganglia and cerebellum. There is no evidence of acute intracranial hemorrhage or edematous territorial infarction. Scattered hypoattenuation in the periventricular and deep white matter are consistent with moderate microangiopathy. Proportional prominence of the ventricles and sulcal spaces. No evidence for obstructive hydrocephalus. No abnormal mass effect or midline shift. No extra-axial fluid collections. No acute soft tissue or osseous abnormalities. The mastoid air cells and paranasal sinuses are clear. Cervical Spine: The atlantooccipital and atlantoaxial articulations remain well aligned. No evidence of acute compression deformity or traumatic subluxation. Moderate intervertebral disc height loss at C6-C7, otherwise mild multilevel intervertebral disc height loss. Moderate to severe multilevel bilateral facet arthropathy, more prominent on the right side leading to various degrees of neural foraminal encroachment. Moderate to severe degenerative changes of the atlantodental articulation. There is no prevertebral soft tissue swelling. The thyroid gland and remaining cervical soft tissues are normal in appearance. The lung apices demonstrate no abnormalities. CT/CT cervical spine wo IV con IMPRESSION: 1. No acute intracranial pathology. 2. Chronic left posterior parietal/occipital lobe infarct and chronic bilateral basal ganglia lacunar infarcts. Few additional age-indeterminate bilateral lacunar infarcts in the basal ganglia and cerebellum. Further evaluation with MRI of the brain could be obtained as clinically warranted. 3. Moderate chronic microangiopathy and generalized cerebral volume loss. 4. No acute cervical spinal fractures or malalignment. 5. Multilevel cervical spondylosis. Electronically signed by: Rosetta Lee MD 03/19/2024 09:18 AM EDT
[2024-03-19 07:59] VITALS: BP 173/108; PULSE 97; RESP 18; TEMP 36.4; O2SAT 97
[2024-03-19 08:00] VITALS: BP 114/98; PULSE 92; RESP 14; TEMP 36.6; O2SAT 96
--- NOTE | 2024-03-19 08:10 | ED_ITS ---
HPI - Neck Pain/Injury General Chief Complaint: Neck Pain/Injury Stated Complaint: Neck pain Time Seen by Provider: 03/19/24 08:03 Source: patient Mode of arrival: ambulatory Limitations: no limitations History of Present Illness HPI Narrative: Patient is a 69-year-old male who presents emergency department for evaluation. He reports that yesterday morning when getting out of bed he did not her non the light accidentally walked into a standing fan in the room resulting in a trip and fall to the ground. With head strike band landing on his left lateral neck. He reports some mild discomfort yesterday. However today he is having significant pain primarily to the left side of its neck. He states he is unable to laterally rotate be head due to severe pain. He has not taken any OTC analgesics for this. He denies any pain radiating to the upper extremities, he denies any associated numbness or tingling, bladder bowel dysfunction, headache, dizziness, lightheadedness, vision changes, chest pain. He denies the use of anticoagulants or known coagulation disorders. Related Data Previous Rx's ?Medication ?Instructions ?Recorded lisinopril 10 mg tablet 10 mg PO DAILY #30 tabs 05/22/20 lisinopril 10 mg tablet 10 mg PO DAILY 14 days #14 tabs 08/11/21 ibuprofen 600 mg tablet 600 mg PO Q6H PRN pain #14 tabs 12/28/23 morphine 15 mg immediate release 15 mg PO Q6H PRN pain #10 tabs 12/28/23 tablet cyclobenzaprine 5 mg tablet 5 mg PO TID PRN muscle spasm #14 03/19/24 tabs Allergies Allergy/AdvReac Type Severity Reaction Status Date / Time No Known Allergies Allergy Verified 03/19/24 08:12 Review of Systems Review of Systems: Yes all other systems are reviewed and are negative PMFSH Past Medical History Attestation statement: The following information was validated with the patient. Source: old records reviewed Medical History HTN (hypertension) Surgical History Hx of abdominal surgery Social History Social History Alcohol intake: current Alcohol intake frequency: 0-2 drinks per day Alcohol type: beer Smoked in Last 30 Days: No Use of substances other than those prescribed or required for medical reasons: No Substance Use Type: Marijuana Advance Directives: No Advance Directives Information Provided: No Physical Exam Vital Signs: Vital Signs: Last Vital Signs Temp 98.6 F 03/19/24 10:00 Pulse 81 03/19/24 10:00 Resp 16 03/19/24 10:00 BP 148/97 H 03/19/24 10:00 Pulse Ox 97 03/19/24 10:00 O2 Del Method Room Air 03/19/24 10:00 BMI result Body Mass Index 23.7 Appearance: Alert.?Oriented to person, place and time. No acute distress.?Normal affect. Head: Normocephalic, atraumatic Eyes: Pupils equal, round and reactive to light.? ENT: Pharynx normal.?? Neck: Normal inspection.? Neck supple.? Tenderness upon palpation at the base of the skull, diffusely down the cervical paraspinal muscles. No palpable midline step-offs or deformities. Pain upon palpation to the bilateral SCM ? CVS: Heart sounds normal. Normal heart rate and rhythm.? Pulses normal.?? Respiratory: No respiratory distress.? Lung sounds clear to auscultation bilaterally?? Abdomen: Soft and non-tender. Normoactive bowel sounds. ?? Skin: Skin warm and dry.? Normal skin color.? ? Extremities: No lower extremity edema.? No calf ttp? Neuro: Moves all extremities spontaneously. Sensation intact bilaterally. CN II- XII intact. No focal neuro deficits. Ambulates with normal steady gait. Course Reevaluation(s) Reevaluation #1: CT without acute intracranial pathology, there is chronic left posterior parietal/occipital lobe infarct and chromic lateral basal ganglia lacunar infarcts. Additional age indeterminate infarcts bilaterally in the basal ganglion cerebellum. I do not suspect these to be acute, he has no focal neurological deficits, CT ordered with concern for possible fracture, ICH. Do not feel as though emergent MRI is warranted. Patient was made aware of these findings, advised to discuss with his primary care doctor. CT without evidence of cervical fracture or malalignment, has multilevel spondylosis. Minimal improvement with ibuprofen and Lidoderm, will trial cyclobenzaprine, short course of corticosteroids, discussed outpatient follow-up with primary care provider, they may consider a course of physical therapy.. Time: 09:24 Medications Administered Discontinued Medications Generic Name Dose Route Start Last Admin Trade Name Katie PRN Reason Stop Dose Admin Cyclobenzaprine HCl 5 mg 03/19/24 09:26 03/19/24 09:35 Cyclobenzaprine Hcl 5 Mg Tablet PO 03/19/24 09:27 5 mg ONCE ONE Administration Ibuprofen 600 mg 03/19/24 08:23 03/19/24 08:27 Ibuprofen 600 Mg Tablet PO 03/19/24 08:24 600 mg ONCE ONE Administration Lidocaine 2 patch 03/19/24 08:23 03/19/24 08:27 Lidocaine 4 % Patch Adh..Patch TRANSDERMA 03/19/24 08:24 2 patch ONCE ONE Administration Protocol Prednisone 40 mg 03/19/24 09:30 03/19/24 09:35 Prednisone 20 Mg Tablet PO 03/19/24 09:31 40 mg ONCE ONE Administration Medical Decision Making Medical Decision Making [facility] Narrative: Patient is a 69-year-old male who presents emergency department for evaluation of traumatic neck pain as per HPI. Pertinent physical exam findings as per PE portion of this note. On examination has no focal neurological deficits. Sensation is intact to all extremities and he is ambulatory with a steady gait. No palpable midline step-offs or deformities. Given his age and mechanism of injury plan to obtain CT of the head and cervical spine to evaluate for ICH, fracture, subluxation, versus pain secondary to strain Differential Diagnosis Differential Diagnoses: The differential diagnosis associated with the presentation includes (See narrative above) Admission/Observation Consideration of admission/observation: Escalation of care including admission/observation considered Radiology Impression Discussion of test interpretation with radiology: I have reviewed the radiologist's reading. Radiologist Impression: CT/CT head/brain wo IV con IMPRESSION: 1. No acute intracranial pathology. 2. Chronic left posterior parietal/occipital lobe infarct and chronic bilateral basal ganglia lacunar infarcts. Few additional age-indeterminate bilateral lacunar infarcts in the basal ganglia and cerebellum. Further evaluation with MRI of the brain could be obtained as clinically warranted. 3. Moderate chronic microangiopathy and generalized cerebral volume loss. 4. No acute cervical spinal fractures or malalignment. 5. Multilevel cervical spondylosis. External Record Review External record reviewed: Outpatient record Prescription Management I considered prescription management with: Pain Medication Discharge Plan Discharge Clinical Impression: Cervical spondylosis Patient Disposition: Home, Self-Care Additional Instructions: You can take Tylenol 500 mg, 2 tablets (1,000mg) every 4-6 hours as needed for pain, but not to exceed 3 doses daily (3,000mg).? A prescription for prednisone has been sent to the pharmacy, please take this daily with food to prevent stomach upset. For pain that is unrelieved you may use cyclobenzaprine. This some muscle relaxant. It may make you drowsy. You should not drive, operate your scooter, drink alcohol, or work while taking this medication. Please contact your primary care provider to arrange for a follow-up visit, they may consider a course of physical therapy if things are not improving. Prescriptions: New cyclobenzaprine 5 mg tablet 5 mg PO TID PRN (Reason: muscle spasm) Qty: 14 0RF No Action lisinopril 10 mg tablet 10 mg PO DAILY Qty: 30 0RF lisinopril 10 mg tablet 10 mg PO DAILY 14 Days Qty: 14 0RF ibuprofen 600 mg tablet 600 mg PO Q6H PRN (Reason: pain) Qty: 14 0RF morphine 15 mg tablet 15 mg PO Q6H PRN (Reason: pain) Qty: 10 0RF Rx Instructions: Partial Fill upon patient request. Referrals: Physician,Unknown J [Primary Care Provider] - Print Language: Sami
[2024-03-19 08:12] VITALS: BMI 23.7
[2024-03-19] MEDS: Ibuprofen 600 MG TABLET PO (08:27)
[2024-03-19] MEDS: Lidocaine 4 % Patch ADH..PATCH 2 PATCH TRANSDERMA (08:27)
[2024-03-19] MEDS: Cyclobenzaprine HCl 5 MG TABLET PO (09:35)
[2024-03-19] MEDS: predniSONE 20 MG TABLET 40 MG PO (09:35)
[2024-03-19 10:00] VITALS: BP 148/97; PULSE 81; RESP 16; TEMP 37; O2SAT 97
[2024-03-19 11:28] VITALS: BP 148/97; PULSE 81; RESP 18; TEMP 37; O2SAT 97
== END 2024-03-19 11:28 | disposition home or self-care (01) ==
PROVIDERS: Emergency Provider Emergency Medicine
DX: M47.892 Other spondylosis, cervical region (principal); M54.2 Cervicalgia
CPT/HCPCS: 70450; 72125; 99284

== ENCOUNTER 2024-05-15 10:11 | Emergency (ER) | payer MEDICARE, MEDICAID, SELFPAY ==
--- NOTE | ~2024-05-15 | CT_ITS ---
EXAMINATION: CT HEAD WITHOUT CONTRAST CLINICAL INFORMATION: Fall. Increased confusion. Rule out subdural hematoma. COMPARISON: Head CT March 19, 2024 TECHNIQUE: Contiguous axial imaging was performed from the skull base to vertex without intravenous administration of contrast. This CT examination was performed using dose optimization techniques as appropriate, variously including the following: *Automated exposure control *Adjustment of mA and/or kV according to patient size (this includes techniques or standardized protocols for targeted exams where dose is matched to indication/reason for exam; i.e. extremities or head) *Use of iterative reconstruction technique DLP: 632 mGy-cm FINDINGS: There is no evidence of acute intracranial hemorrhage or territorial infarction. No abnormal mass effect or midline shift is appreciated. Iverson-white differentiation is well preserved. No extra-axial fluid collections. The ventricular system and cortical sulci are prominent, consistent with age-appropriate volume loss. There are areas of low density in the periventricular and subcortical white matter, most consistent with sequelae of microvascular ischemic change. Mild interval worsening in encephalomalacia with volume loss centered within the left posterior parietal/occipital lobe. Soft tissues and osseous structures are unremarkable. There are calcifications of the cavernous internal carotid arteries. The visualized paranasal sinuses and mastoid air cells are well aerated. CT/CT head/brain wo IV con IMPRESSION: 1. Chronic microvascular ischemic changes with no CT evidence of acute intracranial abnormality. 2. Mild interval worsening in encephalomalacia with volume loss centered within the left posterior parietal/occipital lobe. This may further evaluated with MRI imaging if clinically indicated. Electronically signed by: Selwyn Gamble MD 05/15/2024 12:52 PM EDT
[2024-05-15 10:14] VITALS: BP 181/108; PULSE 82; RESP 18; TEMP 36.5; O2SAT 97; BMI 22.1
--- NOTE | 2024-05-15 10:20 | ECG_ITS ---
Test Reason : FALL Blood Pressure : / mmHG Vent. Rate : 071 BPM Atrial Rate : 071 BPM P-R Int : 178 ms QRS Dur : 094 ms QT Int : 392 ms P-R-T Axes : 012 014 023 degrees QTc Int : 425 ms Normal sinus rhythm Cannot rule out Anterior infarct , age undetermined Abnormal ECG When compared with ECG of 29-JUN-2017 10:09, Vent. rate has increased BY 26 BPM Referred By: Generic ED Physician Electronically Signed By:Markel Foote
[2024-05-15 10:52] LABS: MANUAL DIFF FLAG NO
[2024-05-15 10:56] LABS: Basophils Absolute Auto 0.1 X10*3/uL (0.0-0.2); Basophils Percent Auto 1.3 % (0-2); Eosinophils Absolute Auto 0.1 X10*3/uL (0.0-0.4); Eosinophils Percent Auto 1.3 % (0-4); Hematocrit 47.8 % (42.0-52.0); Hemoglobin 16.8 g/dl (14.0-18.0); Imm Gran Abs Auto 0.04 X10*3/uL (0.00-0.03); Imm Gran Pct Auto 0.4 % (0.0-0.4); Lymphocytes Absolute Auto 3.6 X10*3/uL (1.2-4.9); Lymphocytes Percent Auto 34.8 % (20-40); Mean Corpuscular HGB Conc 35.1 g/dl (31.0-36.0); Mean Corpuscular Hemoglobin 33.2 pg (27.0-33.0); Mean Corpuscular Volume 94.5 fL (80.0-98.0); Mean Platelet Volume 9.3 fL (9.4-12.4); Monocytes Absolute Auto 1.1 X10*3/uL (0.1-1.2); Monocytes Percent Auto 10.5 % (2-11); Neutrophils Absolute Auto 5.3 x10*3/uL (2.0-8.3); Neutrophils Percent Auto 51.7 % (45-73); Platelet Count 462 X10*3/uL (160-400); Red Blood Count 5.06 X10*6/uL (4.60-5.80); Red Cell Distribution Width 14.9 % (11.0-16.0); White Blood Count 10.2 X10*3/uL (4.8-10.8)
[2024-05-15 11:13] LABS: Ethanol < 10 mg/dL
[2024-05-15 11:15] LABS: Alanine Aminotransferase 20 U/L (0-40); Albumin Level 4.1 g/dL (3.5-5.0); Alkaline Phosphatase 64 U/L (39-117); Anion Gap 12 (12-20); Aspartate Amino Transferase 38 U/L (5-37); Bilirubin Total 0.5 mg/dL (0.0-1.0); Blood Urea Nitrogen 8 mg/dL (9-16); Calcium 9.7 mg/dL (8.4-10.2); Carbon Dioxide 24 mmol/L (22-29); Chloride 105 mmol/L (96-108); Creatinine Clr Calc Pharmacy 75.6; Estimated Glomerular Filt Rate > 60; Glucose Random 120 mg/dL (60-115); Lipase 17 U/L (8-78); Magnesium 2.1 mg/dL (1.6-2.6); Potassium 4.1 mmol/L (3.3-5.1); Sodium 137 mmol/L (135-145); Total Protein 7.9 g/dL (6.5-8.0)
[2024-05-15 11:41] LABS: Ammonia 41 umol/L (13-55)
[2024-05-15 11:44] LABS: Appearance Urine Clear; Color Urine Dark Yellow; Glucose Urine UA Negative (Negative); Leukocyte Esterase Urine Trace (Negative); Nitrite Urine Negative (Negative); PH 5.5 (5.0-9.0); Specific Gravity - Urine >= 1.030 (1.005-1.025); UMIC TRIGGER UACC YES; Urine Blood Negative (Negative); Urine Ketones Trace mg/dL (Negative); Urine Protein Trace mg/dL (Neg-Trace)
[2024-05-15 11:48] LABS: Bacteria Urine None Seen (None Seen); Hyaline Casts Urine 0-2 /LPF (0-2); RBC Urine 0-2 /HPF (0-2); Squamous Epithelial Cell Urine 0-2 /HPF (0-2); WBC Urine 0-5 /HPF (0-5)
[2024-05-15 11:50] VITALS: BP 154/89; PULSE 62; RESP 16; TEMP 36.8; O2SAT 95
--- NOTE | 2024-05-15 12:00 | ED_ITS ---
HPI - Altered Mental Status General Chief Complaint: Altered Mental Status Stated Complaint: confusion Time Seen by Provider: 05/15/24 11:59 Source: family (Son-Alberto, sister-Nelsy) Mode of arrival: ambulatory Limitations: no limitations History of Present Illness ED Provider: Dr. Con Abdullahi HPI narrative: 69-year-old male with a history of hypertension not on medications, alcohol use disorder who was brought to emergency department by his family for increased confusion x2 months worse over the last 2 weeks. According to the family, the patient has been having confusion since his birthday 03/18/2025. He did have a fall and was seen here in the emergency department at that time and was seen in the emergency department. Patient had a CT scan of the brain that did not reveal any acute findings but did reveal the following chronic findings: Chronic left posterior parietal/occipital lobe infarct and chronic bilateral basal ganglia lacunar infarcts. Few additional age-indeterminate bilateral lacunar infarcts in the basal ganglia and cerebellum. Moderate chronic microangiopathy and generalized cerebral volume According to the family the patient was having trouble forming sentences. He was having difficulty with concepts. The son states that the patient was asking about the bike o'clock he needs described it to his son as ?the thing to hold my bike?. He was confused he can not recognize faces and he can not remember how to get to his sister's house which is just on the block. Patient has also been talking to himself. Earlier this week his confusion became more severe. The son states that confusion seems to wax and wane in intensity. He did have a fall several days prior and did sustain right-sided head injury. The patient drinks two 40 oz beers per day. According to his son he was never stopped drinking and that if he does not get his alcohol he gets agitated and angry but he has never had delirium tremors, alcohol withdrawal or withdrawal seizures. The family went to an urgent care clinic today and was referred to the emergency department for evaluation. Related Data Previous Rx's ?Medication ?Instructions ?Recorded lisinopril 10 mg tablet 10 mg PO DAILY #30 tabs 05/22/20 lisinopril 10 mg tablet 10 mg PO DAILY 14 days #14 tabs 08/11/21 ibuprofen 600 mg tablet 600 mg PO Q6H PRN pain #14 tabs 12/28/23 morphine 15 mg immediate release 15 mg PO Q6H PRN pain #10 tabs 12/28/23 tablet cyclobenzaprine 5 mg tablet 5 mg PO TID PRN muscle spasm #14 03/19/24 tabs prednisone 20 mg tablet 40 mg (2 x 20 mg) PO DAILY 4 days 03/19/24 #8 tabs Allergies Allergy/AdvReac Type Severity Reaction Status Date / Time No Known Allergies Allergy Verified 05/15/24 10:20 Review of Systems 2 Review of Systems: Yes all other systems are reviewed and are negative [facility] Past Medical History [facility] Narrative: Social history: Patient lives alone but his family does check in on him frequently. Patient drinks two 40 oz beers per day. He does smoke marijuana daily. He does not use any other drugs. Medical History HTN (hypertension) Surgical History Hx of abdominal surgery Social History Social History Alcohol intake: current Alcohol intake frequency: 0-2 drinks per day Alcohol type: beer Substance Use Type: Marijuana Advance Directives: No Advance Directives Information Provided: Yes Physical Exam ED Vital Signs: Vital Signs - 24 hr 05/15/24 10:14 05/15/24 11:50 Temperature 97.7 F 98.3 F Pulse Rate 82 62 Respiratory Rate 18 16 Blood Pressure 181/108 H 154/89 H Pulse Oximetry 97 95 Oxygen Delivery Method Room Air Room Air BMI result Body Mass Index 22.1 Vital signs revealed an elevated blood pressure of 181/1 over Exam: General: Awake, alert in no distress, oriented to person and month Head: Normocephalic, patient was abrasions to the right side of his forehead and face consistent with a recent fall, no hematomas or tenderness EENT: PERRL, extraocular muscles are intact, Lids normal, sclera normal, conjunctiva normal, nose normal , ears normal, throat without erythema or exudates Neck: Supple, no adenopathy Lung: breath sounds symmetric, no wheezing, rales or rhonchi Chest: symmetric movement, nontender Heart: regular rate and rhythm, normal S1, S2 no murmurs or rubs Abdomen: soft, non-tender, nondistended, normal bowel sounds Back: no vertebral tenderness, no CVAT Extremities: no deformities, moves all extremities symmetrically Neuro: General: Awake, alert, oriented,normal speech Cranial nerves: Cranial nerves 2-12 intact Strength: 5/5 symmetric Cerebellar: Good awatcd-df-govq-to-finger, good heel to cullen, good rapid finger movement. Patient has a normal gait with no ataxia Psych: Pleasant, cooperative Medical Decision Making Medical Decision Making [facility] Narrative: 69-year-old male with a history of hypertension not on medications, alcohol use disorder who was brought to emergency department by his family for increased confusion x2 months worse over the last 2 weeks. Patient was having difficulty with identifying objects, identifying faces and waxing and waning confusion. Patient was seen in the emergency department for a fall 03/19/2024 and did have an abnormal CT scan which revealed chronic left posterior parietal occipital infarct and chronic bibasilar ganglia lacunar infarcts and cerebellum infarcts. Patient also had a recent fall several days ago. Vital signs did reveal an elevated blood pressure. Physical examination was otherwise unremarkable. Differential diagnosis: ?Includes but is not limited to subdural hematoma, intracranial bleed, skull fracture, Alzheimer's dementia, multi-infarct dementia, poor Wernicke's encephalopathy, Korsakoff's encephalopathy, electrolyte abnormalities, anemia, alcohol intoxication Course: My interpretation patient's laboratory evaluation is as follows: No anemia with a normal MCV. Elevated platelet count of 537643. Elevated INR of 1.2. Elevated glucose 120. Elevated AST of 38. Alcohol level below detectable limits. Ammonia normal. Syphilis screen, B12 and folate test pending. CT scan of the brain did not reveal any acute abnormalities but the patient does have mild interval worsening over the encephalomalacia with volume loss centered within the left posterior parietal/occipital lobes. Given his relatively acute onset of dementia concerned that the patient may have a reversible process such as Wernicke's encephalopathy. I did discuss admission with the covering hospitalist, Dr. Yee and he did come to the emergency department evaluate the patient patient will be treated with thiamine 500 mg IV and admitted for further evaluation of his mental status change. Lab Data [facility] Lab Attestation statement: I reviewed the patient's lab results. 05/15/24 10:47 05/15/24 10:47 Labs: Lab Results 05/15/24 05/15/2405/15/24 Range/Units 10:47 11:13 11:25 WBC 10.2 (4.8-10.8) X10*3/uL RBC 5.06 (4.60-5.80) X10*6/uL Hgb 16.8 (14.0-18.0) g/dl Hct 47.8 (42.0-52.0) % MCV 94.5 (80.0-98.0) fL MCH 33.2 H (27.0-33.0) pg MCHC 35.1 (31.0-36.0) g/dl RDW 14.9 (11.0-16.0) % Plt Count 462 H (160-400) X10*3/uL MPV 9.3 L (9.4-12.4) fL Immature Gran % (Auto) 0.4 (0.0-0.4) % Neut % (Auto) 51.7 (45-73) % Lymph % (Auto) 34.8 (20-40) % [place] % (Auto) 10.5 (2-11) % Eos % (Auto) 1.3 (0-4) % Baso % (Auto) 1.3 (0-2) % Lymph # (Auto) 3.6 (1.2-4.9) X10*3/uL [place] # (Auto) 1.1 (0.1-1.2) X10*3/uL Eos # (Auto) 0.1 (0.0-0.4) X10*3/uL Baso # (Auto) 0.1 (0.0-0.2) X10*3/uL Abs Immat Gran (auto) 0.04 H (0.00-0.03) X10*3/uL Absolute Neuts (auto) 5.3 (2.0-8.3) x10*3/uL Absolute Nucleated RBC 0.000 (0.0-0.012) X10*3/uL Nucleated RBC % (auto) 0.0 (0.0-0.2) /100WBC Hold Purple Top SEE NOTE Sodium 137 (135-145) mmol/L Potassium 4.1 (3.3-5.1) mmol/L Chloride 105 (96-108) mmol/L Carbon Dioxide 24 (22-29) mmol/L Anion Gap 12 (12-20) BUN 8 L (9-16) mg/dL Creatinine 0.90 (0.5-1.4) mg/dL Estim Creat Clear Calc 75.6 Estimated GFR > 60 Random Glucose 120 H (60-115) mg/dL Calcium 9.7 (8.4-10.2) mg/dL Magnesium 2.1 (1.6-2.6) mg/dL Total Bilirubin 0.5 (0.0-1.0) mg/dL AST 38 H (5-37) U/L ALT 20 (0-40) U/L Alkaline Phosphatase 64 (39-117) U/L Ammonia 41 (13-55) umol/L Total Protein 7.9 (6.5-8.0) g/dL Albumin 4.1 (3.5-5.0) g/dL Lipase 17 (8-78) U/L Urine Color Dark Yellow Urine Appearance Clear Urine pH 5.5 (5.0-9.0) Ur Specific [place] >= 1.030 H (1.005-1.025) Urine Protein Trace (Neg-Trace) mg/dL Urine Glucose (UA) Negative (Negative) mg/dL Urine Ketones Trace (Negative) mg/dL Urine Blood Negative (Negative) Urine Nitrite Negative (Negative) Ur Leukocyte Esterase Trace H (Negative) Urine RBC 0-2 (0-2) /HPF Urine WBC 0-5 (0-5) /HPF Ur Squamous Epith Cells 0-2 (0-2) /HPF Urine Bacteria None Seen (None Seen) Hyaline Casts 0-2 (0-2) /LPF Urine Opiates Screen Not Detected (Not Detect) Ur Buprenorphine Scrn Not Detected (Not Detect) ng/mL Ur Oxycodone Screen Not Detected (Not Detect) ng/mL Urine Methadone Screen Not Detected (Not Detect) ng/mL Urine Fentanyl Screen Not Detected (Not Detect) Ur Barbiturates Screen Not Detected (Not Detect) Ur Phencyclidine Scrn Not Detected (Not Detect) Ur Amphetamines Screen Not Detected (Not Detect) U Benzodiazepines Scrn Not Detected (Not Detect) Urine Cocaine Screen Not Detected (Not Detect) U Marijuana (THC) Screen POSITIVE H (Not Detect) Ethyl Alcohol < 10 mg/dL Radiology Impression Discussion of test interpretation with radiology: I have reviewed the radiologist's reading. Radiologist Impression: CT head/brain wo IV con IMPRESSION: 1. Chronic microvascular ischemic changes with no CT evidence of acute intracranial abnormality. 2. Mild interval worsening in encephalomalacia with volume loss centered within the left posterior parietal/occipital lobe. This may further evaluated with MRI imaging if clinically indicated. Electronically signed by: Selwyn Gamble MD 05/15/2024 12:52 PM EDT RP Dictated By: Selwyn Gamble MD Discharge Plan Discharge Clinical Impression: Acute alteration in mental status, Wernicke encephalopathy Prescriptions: No Action lisinopril 10 mg tablet 10 mg PO DAILY Qty: 30 0RF lisinopril 10 mg tablet 10 mg PO DAILY 14 Days Qty: 14 0RF ibuprofen 600 mg tablet 600 mg PO Q6H PRN (Reason: pain) Qty: 14 0RF morphine 15 mg tablet 15 mg PO Q6H PRN (Reason: pain) Qty: 10 0RF Rx Instructions: Partial Fill upon patient request. cyclobenzaprine 5 mg tablet 5 mg PO TID PRN (Reason: muscle spasm) Qty: 14 0RF prednisone 20 mg tablet 40 mg PO DAILY 4 Days Qty: 8 0RF Print Language: Slovak
[2024-05-15 12:18] LABS: Amphetamine Screen Urine Not Detected (Not Detect); Barbiturates, Urine Not Detected (Not Detect); Benzodiazepines Screen Urine Not Detected (Not Detect); Buprenorphine Scr Not Detected (Not Detect); Cannabinoid Screen Urine POSITIVE (Not Detect); Cocaine Screen Urine Not Detected (Not Detect); Fentanyl, urine Not Detected (Not Detect); Methadone Screen, Urine Not Detected (Not Detect); Opiate Screen Urine Not Detected (Not Detect); Oxycodone Screen Urine Not Detected (Not Detect); Phencyclidine Screen Urine Not Detected (Not Detect)
[2024-05-15 13:54] LABS: Vitamin B12 232 pg/mL (200-900)
[2024-05-15 14:00] VITALS: BP 184/128; PULSE 87; RESP 22; TEMP 36.7; O2SAT 96
[2024-05-15 14:53] VITALS: BP 184/128; PULSE 87; RESP 22; TEMP 36.7; O2SAT 96
[2024-05-15 15:11] LABS: Syphilis Screen Reactive (Nonreactive)
[2024-05-20 07:42] LABS: RPR Quantitative Non-Reactive (Nonreactive)
[2024-05-20 07:43] LABS: T.Pallidum Particle Agg Test Reactive (Nonreactive)
== END 2024-05-15 14:54 | disposition home or self-care (01) ==
PROVIDERS: Emergency Provider Emergency Medicine Emergency Medical Services
DX: E51.2 Wernicke's encephalopathy (principal); R41.82 Altered mental status, unspecified
CPT/HCPCS: 36415; 70450; 80053; 80307; 81001; 82140; 82607; 82746; 83690; 83735; 85025; 86592; 86780; 93005; 99284

== ENCOUNTER → 2024-05-15 10:20 | Outpatient (BNV) | payer MEDICARE, MEDICAID, SELFPAY | PROVIDERS: Emergency Provider Emergency Medicine Emergency Medical Services; Visit Provider Internal Medicine Cardiovascular Disease | DX: R94.31 Abnormal electrocardiogram [ECG] [EKG] (principal) | CPT/HCPCS: 93010 ==

== ENCOUNTER 2024-05-15 17:22 | Inpatient (IN) | payer MEDICARE, MEDICAID, SELFPAY ==
[2024-05-15 17:33] VITALS: BP 147/102; BP 152/94; PULSE 102; PULSE 86; RESP 18; TEMP 36.9; O2SAT 94; O2SAT 96; BMI 23.4
[2024-05-15 19:02] VITALS: BP 133/93; PULSE 73; RESP 20; TEMP 36.7; O2SAT 94
--- NOTE | 2024-05-15 19:04 | PC.NURSE ---
this RN assumed care of pt, pt alert to self at this time, pt states he is unsure why he is at the hospital at this time. pt placed on tele, 70-72bpm. vss.
--- NOTE | 2024-05-15 19:05 | ED_ITS ---
HPI - Altered Mental Status General Chief Complaint: Altered Mental Status Stated Complaint: AMS X 1WK Time Seen by Provider: 05/15/24 19:05 Source: patient Limitations: altered mental status History of Present Illness ED Provider: Adali Martinez PA-C HPI narrative: 69-year-old male with a history of hypertension and alcohol use disorder presents with altered mental status. Patient was seen earlier today, family was with him in the ER. There was discussion about admitting the patient, however the patient became angry and refused, he returned home in the care of his family. While on his way back home, his son was driving, the patient became agitated and began to accuse his son of stealing his keys. At that point, the patient was trying to get out of the vehicle while his son was driving, subsequently pulled over to the side of the road, the patient fled from the vehicle. Police were called to the scene, the patient arrives back to the emergency department via section 12. No injury sustained. Related Data Previous Rx's ?Medication ?Instructions ?Recorded lisinopril 10 mg tablet 10 mg PO DAILY #30 tabs 05/22/20 lisinopril 10 mg tablet 10 mg PO DAILY 14 days #14 tabs 08/11/21 ibuprofen 600 mg tablet 600 mg PO Q6H PRN pain #14 tabs 12/28/23 morphine 15 mg immediate release 15 mg PO Q6H PRN pain #10 tabs 12/28/23 tablet cyclobenzaprine 5 mg tablet 5 mg PO TID PRN muscle spasm #14 03/19/24 tabs prednisone 20 mg tablet 40 mg (2 x 20 mg) PO DAILY 4 days 03/19/24 #8 tabs folic acid 1 mg tablet 1 mg PO DAILY 90 days #90 tabs 05/15/24 lisinopril 10 mg tablet 10 mg PO DAILY 90 days #90 tabs 05/15/24 multivitamin 1 tab PO DAILY 90 days #90 tabs 05/15/24 thiamine HCl (vitamin B1) 500 mg 500 mg PO DAILY 90 days #90 tabs 05/15/24 tablet Allergies Allergy/AdvReac Type Severity Reaction Status Date / Time No Known Allergies Allergy Verified 05/15/24 17:36 Review of Systems Review of Systems: Unable to obtain as the patient is currently uncooperative Yes all other systems are reviewed and are negative PMFSH Past Medical History Attestation statement: The following information was validated with the patient. Medical History HTN (hypertension) Surgical History Hx of abdominal surgery Social History Social History Alcohol intake: current Alcohol intake frequency: 0-2 drinks per day Alcohol type: beer Patient Tobacco Use Status: Never used Tobacco Smoked in Last 30 Days: No Use of substances other than those prescribed or required for medical reasons: No Substance Use Type: Marijuana Advance Directives: No Advance Directives Information Provided: No Do you have a plan to hurt others: No Plan Nutrition Risks: No Nutritional Risk Physical Exam ED Vital Signs: Vital Signs - 24 hr 05/15/24 17:33 05/15/24 19:02 05/15/24 19:48 Temperature 98.5 F 98.1 F 98.1 F Pulse Rate 86 73 75 Respiratory Rate 18 20 14 Blood Pressure 147/102 H 133/93 H 146/91 H Pulse Oximetry 94 94 96 Oxygen Delivery Method Room Air Room Air Room Air 05/15/24 22:00 Temperature 97.6 F Pulse Rate 65 Respiratory Rate 17 Blood Pressure 142/106 H Pulse Oximetry 95 Oxygen Delivery Method Room Air BMI result Body Mass Index 23.4 Const Other: Alert, appears older than stated age Orientation/consciousness: oriented to person and oriented to place Neck Other: Full range of motion, no meningeal signs Resp Other: Nonlabored respirations Cardio Other: Normal peripheral perfusion Skin Other: Warm dry no rash Neuro General: oriented to person, oriented to place, gait normal, no focal motor deficits and CN's II-XI intact bilaterally Extrem Other: Moves all extremities independently Psych Other: Initially uncooperative, he is now calm and allowing for an IV to be placed and labs to be obtained Course Reevaluation(s) Reevaluation #1: The patient's sister called to check in on her brother. Her name is Nelsy. She is indicating that the patient has been having worsening confusion with para noid delusions since February. His symptoms have been progressing. I asked if she knew if he was treated for syphilis, she is unaware. She states that he drinks 2-340 oz bottles of beer a day, every day, she does not think that he has had withdrawal symptoms in the past. Time: 21:26 Medications Administered Generic Name Dose Route Start Last Admin Trade Name Katie PRN Reason Stop Dose Admin Thiamine HCl 500 mg/ Sodium 105 mls @ 210 mls/hr 05/16/24 00:00 05/15/24 23:57 Chloride IV 210 mls/hr Q8H JONAS Administration Discontinued Medications Generic Name Dose Route Start Last Admin Trade Name Katie PRN Reason Stop Dose Admin Penicillin G Potassium 5,000, 100 mls @ 200 mls/hr 05/15/24 19:15 05/15/24 20:45 000 unit/ Sodium Chloride IV 05/15/24 19:44 Infused ONCE ONE Infusion Lorazepam 2 mg 05/15/24 21:48 05/15/24 21:48 Lorazepam 2 Mg/Ml Vial IVPUSH 05/15/24 21:49 2 mg ONCE ONE Administration Midazolam HCl 2 mg 05/15/24 20:18 05/15/24 20:28 Midazolam Hcl/Pf 2 Mg/2 Ml Vial IVPUSH 05/15/24 20:19 2 mg ONCE ONE Administration Medical Decision Making Medical Decision Making [facility] Narrative: 69-year-old male with a history of hypertension and alcohol use disorder presents with altered mental status. Patient was seen earlier today, family was with him in the ER. There was discussion about admitting the patient, however the patient became angry and refused, he returned home in the care of his family. While on his way back home, his son was driving, the patient became agitated and began to accuse his son of stealing his keys. At that point, the patient was trying to get out of the vehicle while his son was driving, subsequently pulled over to the side of the road, the patient fled from the vehicle. Police were called to the scene, the patient arrives back to the emergency department via section 12. No injury sustained. Problem: Alcohol use disorder, hypertension, age History: Per EMS I have considered the following differential diagnoses: Delirium, encephalopathy, alcohol withdrawal, neurosyphilis, drug/alcohol intoxication Plan: When patient was assessed earlier, screening labs, urinalysis, drug screen and head CT were obtained. He has some degenerative changes noted on the brain CT, however nothing else acute. His drug screen was positive for marijuana, his labs were unremarkable he did not have a UTI. I will be adding on a magnesium and serum ethanol. 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 We will be obtaining an LP, it is unclear if the syphilis was treated. We will start empiric Pen G. Placing a CIWA . I have independently reviewed the following tests: Labs: No leukocytosis, not anemic, no electrolyte abnormality, urine not infected, U tox positive for marijuana, serum ethanol negative CT brain: CT/CT head/brain wo IV con IMPRESSION: 1. Chronic microvascular ischemic changes with no CT evidence of acute intracranial abnormality. 2. Mild interval worsening in encephalomalacia with volume loss centered within the left posterior parietal/occipital lobe. This may further evaluated with MRI imaging if clinically indicated. Electronically signed by: Selwyn Gamble MD 05/15/2024 12:52 PM EDT RP Lab Data Labs: Lab Results 05/15/24 05/15/24 05/15/24 Range/Units 19:44 21:12 21:12 Magnesium 2.0 (1.6-2.6) mg/dL CSF Tube Number 4 1 CSF Volume 1.0 ML CSF Appearance CSF Color CSF WBC MM*3 CSF RBC MM*3 CSF Neutrophils % CSF Lymphocytes % CSF Monocytes % % CSF Other Cells % % CSF Appearance (b) CSF Glucose mg/dL CSF Total Protein (15-45) mg/dL Ethyl Alcohol < 10 mg/dL 05/15/24 05/15/24 05/15/24 Range/Units 21:12 21:12 21:12 Magnesium (1.6-2.6) mg/dL CSF Tube Number CSF Volume 1.0 ML CSF Appearance CLEAR CLEAR CSF Color COLORLESS COLORLESS CSF WBC 16 H* MM*3 CSF RBC MM*3 CSF Neutrophils % CSF Lymphocytes % CSF Monocytes % % CSF Other Cells % % CSF Appearance (b) CSF Glucose mg/dL CSF Total Protein (15-45) mg/dL Ethyl Alcohol mg/dL 05/15/24 05/15/24 05/15/24 Range/Units 21:12 21:12 21:12 Magnesium (1.6-2.6) mg/dL CSF Tube Number CSF Volume ML CSF Appearance CSF Color CSF WBC 29 H* MM*3 CSF RBC 26 47 MM*3 CSF Neutrophils 5 12 % CSF Lymphocytes 84 % CSF Monocytes % % CSF Other Cells % % CSF Appearance (b) CSF Glucose mg/dL CSF Total Protein (15-45) mg/dL Ethyl Alcohol mg/dL 05/15/24 05/15/24 05/15/24 Range/Units 21:12 21:12 21:13 Magnesium (1.6-2.6) mg/dL CSF Tube Number 2 CSF Volume ML CSF Appearance CSF Color CSF WBC MM*3 CSF RBC MM*3 CSF Neutrophils % CSF Lymphocytes 68 % CSF Monocytes % 9 20 % CSF Other Cells % 2 % CSF Appearance (b) Clear, Colorless CSF Glucose 75 mg/dL CSF Total Protein 32.7 (15-45) mg/dL Ethyl Alcohol mg/dL Procedures Lumbar Puncture Time Out Performed: Yes Patient Position: left lateral decubitus Skin Prep: Povidone-Iodine 1% Local Anesthetic: lidocaine 1% Amount of anesthesia used (mL): 9 Spinal Needle Gauge: 20G Interspace Used: L3-L4 Fluid Initially Obtained: clear Complications: none Discharge Plan Discharge Clinical Impression: Acute alteration in mental status, Alcohol use disorder
--- NOTE | 2024-05-15 19:33 | PC.NURSE ---
iv access obtained at this time, 20G placed in left forearm, wrapped for safety.
[2024-05-15 19:48] VITALS: BP 146/91; PULSE 75; RESP 14; TEMP 36.7; O2SAT 96
[2024-05-15 20:08] LABS: Ethanol < 10 mg/dL
[2024-05-15] MEDS: Penicillin G Potassium 5,000,000 UNIT in 0.9 % Sodium Chloride 100 ML 200 UNIT IV (20:13)
[2024-05-15] MEDS: Midazolam HCl/PF 2 MG/2 ML VIAL IVPUSH (20:28)
--- NOTE | 2024-05-15 20:28 | PC.NURSE ---
plan for bedside lumbar puncture by Vika MOSES. Pt medicated per sep.
--- NOTE | 2024-05-15 21:13 | PC.NURSE ---
lumbar puncture completed at this time, pt medicated pre procedure per provider. Samples obtained and walked to lab by ed special education teacher.
[2024-05-15] MEDS: LORazepam 2 MG/ML VIAL IVPUSH (21:48)
[2024-05-15 22:00] VITALS: BP 142/106; PULSE 65; RESP 17; TEMP 36.4; O2SAT 95
[2024-05-15 22:03] LABS: Glucose CSF 75 mg/dL; Total Protein CSF 32.7 mg/dL (15-45)
[2024-05-15 23:00] LABS: CSF Monos 20 %; Lymphocytes CSF 68 %; Neutrophils CSF 12 %; Red Blood Cell CSF 47 MM*3
[2024-05-15 23:08] LABS: CSF Monos 9 %; CSF Other Cells % 2 %; Lymphocytes CSF 84 %; Neutrophils CSF 5 %; Red Blood Cell CSF 26 MM*3; White Blood Cell CSF 16 MM*3
[2024-05-15 23:09] LABS: Appearance CSF CLEAR; White Blood Cell CSF 29 MM*3
[2024-05-15 23:10] LABS: Appearance CSF CLEAR; CSF Tube # 1; CSF Tube # 4; Color CSF COLORLESS
--- NOTE | 2024-05-15 23:25 | P.HPHOSP_ITS ---
History of Present Illness Date of Service: 05/15/24 Chief Complaint: Confusion This is a 69-year-old male with pertinent history of alcohol use disorder, hypertension not on medications who was brought to the emergency department for evaluation of increasing confusion. Unable to obtain any history from the patie nt. He was given midazolam and lorazepam prior to my evaluation for diagnostic LP in the ER. History obtained from ER provider and chart review. Patient drinks alcohol every day and was brought to the ER for increasing confusion over the last 2 months which worsened over the last 2 weeks. He was seen in the ER in a.m. on the day of presentation. Patient was considered for inpatient admission for evaluation of confusion and treatment of possible Wernicke's encephalopathy but patient did not want to stay and decided to leave from the ER. As per the sister, patient tried to jump out of the car and was very confused so he was brought back to the ER. 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 Patient was given IV penicillin and diagnostic LP performed Review of Systems Review of Systems: Yes Unobtainable due to mental status PMFSH Medical History HTN (hypertension) Pertinent family history: Unable to obtain Surgical History Hx of abdominal surgery Social History Alcohol intake: current Alcohol intake frequency: 0-2 drinks per day Alcohol type: beer Patient Tobacco Use Status: Never used Tobacco Substance Use Type: Marijuana Meds Allergies Allergy/AdvReac Type Severity Reaction Status Date / Time No Known Allergies Allergy Verified 05/15/24 17:36 Physical Exam Vital Signs and Narrative: Vital Signs: Last Vital Signs Temp 97.6 F 05/15/24 22:00 Pulse 65 05/15/24 22:00 Resp 17 05/15/24 22:00 BP 142/106 H 05/15/24 22:00 Pulse Ox 95 05/15/24 22:00 O2 Del Method Room Air 05/15/24 22:00 BMI result Body Mass Index 23.4 Middle-aged male lying in bed in no distress Neck supple, no JVD Regular rate and rhythm, S1-S2 heard Regular breath sounds bilaterally, no wheezing or crackles appreciated Abdomen soft nontender, no guarding, no rigidity Patient is drowsy and does not respond to verbal stimulus, eye opening to painful stimulus, unable to assess orientation Psych: Drowsy No pedal edema Results Labs Labs: Laboratory Results - last 24 hr 05/15/24 05/15/24 05/15/24 19:44 21:12 21:12 Magnesium 2.0 CSF Tube Number 4 1 CSF Volume 1.0 CSF Appearance CSF Color CSF WBC CSF RBC CSF Neutrophils CSF Lymphocytes CSF Monocytes % CSF Other Cells % CSF Glucose CSF Total Protein Ethyl Alcohol < 10 05/15/24 05/15/24 05/15/24 21:12 21:12 21:12 Magnesium CSF Tube Number CSF Volume 1.0 CSF Appearance CLEAR CLEAR CSF Color COLORLESS COLORLESS CSF WBC 16 H* CSF RBC CSF Neutrophils CSF Lymphocytes CSF Monocytes % CSF Other Cells % CSF Glucose CSF Total Protein Ethyl Alcohol 05/15/24 05/15/24 05/15/24 21:12 21:12 21:12 Magnesium CSF Tube Number CSF Volume CSF Appearance CSF Color CSF WBC 29 H* CSF RBC 26 47 CSF Neutrophils 5 12 CSF Lymphocytes 84 CSF Monocytes % CSF Other Cells % CSF Glucose CSF Total Protein Ethyl Alcohol 05/15/24 05/15/24 05/15/24 21:12 21:12 21:13 Magnesium CSF Tube Number CSF Volume CSF Appearance CSF Color CSF WBC CSF RBC CSF Neutrophils CSF Lymphocytes 68 CSF Monocytes % 9 20 CSF Other Cells % 2 CSF Glucose 75 CSF Total Protein 32.7 Ethyl Alcohol Assessment and Plan (1) Acute encephalopathy: Status: Acute Plan This is a 69-year-old male with pertinent history of alcohol use disorder, hypertension not on medications who was brought to the emergency department for evaluation of increasing confusion #. Acute encephalopathy: Treponemal test positive in the serum. 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 Unclear if patient was previously treated (if yes, TP-EIA will be positive for life). ER provider contacted patient's sister who did not know about patient's previous syphilis status or treatment. RPR pending. Diagnostic LP done in the ER. CSF studies pending including CSF VDRL. Empiric IV penicillin and antivirals for now. Unlikely bacterial meningitis, CSF WBCs high but also noted CSF RBCs -- patient had a traumatic tap. Also concern for Wernicke's encephalopathy in a patient with daily alcohol use. Initiated IV thiamine. Neurology and ID consult pending. B12 pending #. Alcohol use disorder: No history of withdrawal. Monitor CIWA #. Hypertension: Monitor blood pressure and initiate antihypertensives as appropriate DVT prophylaxis: Lovenox Full code Admit as inpatient and will require two night minimum hospital stay for evaluation of acute encephalopathy (as above), which is not possible in a lesser acute setting. Specialist consult pending Quality Stroke Does the patient have a stroke diagnosis?: No VTE Prior VTE?: No VTE Risk Level:: Medical - moderate - high VTE Device Contraindication: Treatment Not Indicated VTE Drug Contraindication: N/A - Med Ordered
[2024-05-15 23:37] LABS: CSF Appearance Clear, Colorless
[2024-05-15 23:38] LABS: CSF Tube # 2
[2024-05-15] MEDS: Thiamine HCL 500 MG in 0.9 % Sodium Chloride 100 ML 210 MG IV (23:57)
[2024-05-16] VITALS (7 sets, daily range): BP systolic 141–166; BP diastolic 84–104; PULSE 69–130; RESP 16–18; TEMP 36.3–37; O2SAT 94–98
[2024-05-16] MEDS: Penicillin G Potassium 5,000,000 UNIT in 0.9 % Sodium Chloride 100 ML 200 UNIT IV ×6 (00:05→20:46)
--- NOTE | 2024-05-16 00:07 | PC.NURSE ---
second IV access obtained at this time, 20G placed in right forearm. pt medciated per sep.
[2024-05-16] MEDS: Acyclovir Sodium 730 MG in 0.9 % Sodium Chloride 250 ML 265 MG IV (00:48)
[2024-05-16 02:33] LABS: Cryptococcus neoformans/gattii Not Detected (Not Detect.); Enterovirus Not Detected (Not Detect.); Escherichia coli K1 Not Detected (Not Detect.); Haemophilus influenzae Not Detected (Not Detect.); Herpes simplex virus 1 Not Detected (Not Detect.); Herpes simplex virus 2 Not Detected (Not Detect.); Human herpesvirus 6 Not Detected (Not Detect.); Human parechovirus Not Detected (Not Detect.); Listeria monocytogenes Not Detected (Not Detect.); Neisseria meningitidis Not Detected (Not Detect.); Streptococcus agalactiae Not Detected (Not Detect.); Streptococcus pneumoniae Not Detected (Not Detect.); Varicella zoster virus Not Detected (Not Detect.)
[2024-05-16 05:55] LABS: MANUAL DIFF FLAG NO
[2024-05-16 05:58] LABS: Basophils Absolute Auto 0.1 X10*3/uL (0.0-0.2); Basophils Percent Auto 1.3 % (0-2); Eosinophils Absolute Auto 0.1 X10*3/uL (0.0-0.4); Eosinophils Percent Auto 1.3 % (0-4); Hematocrit 47.4 % (42.0-52.0); Hemoglobin 16.4 g/dl (14.0-18.0); Imm Gran Abs Auto 0.03 X10*3/uL (0.00-0.03); Imm Gran Pct Auto 0.3 % (0.0-0.4); Lymphocytes Absolute Auto 2.3 X10*3/uL (1.2-4.9); Lymphocytes Percent Auto 25.5 % (20-40); Mean Corpuscular HGB Conc 34.6 g/dl (31.0-36.0); Mean Corpuscular Hemoglobin 32.9 pg (27.0-33.0); Mean Platelet Volume 9.6 fL (9.4-12.4); Monocytes Percent Auto 11.3 % (2-11); Neutrophils Absolute Auto 5.5 x10*3/uL (2.0-8.3); Neutrophils Percent Auto 60.3 % (45-73); Platelet Count 383 X10*3/uL (160-400); Red Blood Count 4.99 X10*6/uL (4.60-5.80); Red Cell Distribution Width 14.7 % (11.0-16.0); White Blood Count 9.2 X10*3/uL (4.8-10.8)
[2024-05-16 06:20] LABS: Alanine Aminotransferase 14 U/L (0-40); Albumin Level 3.7 g/dL (3.5-5.0); Alkaline Phosphatase 56 U/L (39-117); Anion Gap 14 (12-20); Aspartate Amino Transferase 27 U/L (5-37); Bilirubin Total 1.1 mg/dL (0.0-1.0); Blood Urea Nitrogen 6 mg/dL (9-16); Calcium 9.3 mg/dL (8.4-10.2); Carbon Dioxide 20 mmol/L (22-29); Chloride 107 mmol/L (96-108); Creatinine Clr Calc Pharmacy 95.9; Estimated Glomerular Filt Rate > 60; Glucose Random 94 mg/dL (60-115); Potassium 3.9 mmol/L (3.3-5.1); Sodium 137 mmol/L (135-145)
[2024-05-16 06:55] LABS: Folate 7.3 ng/mL (> or = 4.0); Vitamin B12 208 pg/mL (200-900)
--- NOTE | 2024-05-16 08:18 | P.PNIM_ITS ---
Subjective Subjective Date of Service: 05/16/24 Interval History: Calmer today still very confused Physical Exam 2 Vital Signs: Vital Signs: Last Vital Signs Temp 98.3 F 05/16/24 08:00 Pulse 91 05/16/24 08:00 Resp 18 05/16/24 08:00 BP 141/90 H 05/16/24 08:00 Pulse Ox 95 05/16/24 08:00 O2 Del Method Room Air 05/16/24 08:00 BMI result Body Mass Index 23.4 Alert, oriented to place and person but not time, very poor insight Objective Data Active Medications Acetaminophen (Acetaminophen 325 Mg Tablet) 650 mg PO Q6H PRN PRN Reason: Pain, Mild (Pain Scale 1-3), fever or headache Calcium Carbonate (Calcium Carbonate 750 Mg Tab.Chew) 750 mg PO Q4H PRN PRN Reason: Heartburn Enoxaparin Sodium (Enoxaparin Sodium 40 Mg/0.4 Ml Syringe) 40 mg SUBCUT Q24H [facility] Thiamine HCl 500 mg/ Sodium (Chloride) 105 mls @ 210 mls/hr IV Q8H [facility] Last Infusion: 05/16/24 00:30 Dose: Infused Documented By: DESTINI Penicillin G Potassium 5,000, (000 unit/ Sodium Chloride) 100 mls @ 200 mls/hr IV Q4H [facility] Last Infusion: 05/16/24 04:38 Dose: Infused Documented By: HERMELINDA Magnesium Hydroxide (Milk Of Magnesia 30 Ml Oral.Susp) 30 ml PO DAILY PRN PRN Reason: Constipation Melatonin (Melatonin 3 Mg Tablet) 6 mg PO BEDTIME PRN PRN Reason: Insomnia Ondansetron HCl (Ondansetron Hcl 4 Mg/2 Ml Vial) 4 mg IVPUSH Q8H PRN PRN Reason: Nausea and Vomiting Sodium Chloride (0.9 % Sodium Chloride Flush 3 Ml Syringe) 3 ml IVFLUSH QSHIFT [facility] Last Admin: 05/16/24 00:09 Dose: Not Given Documented By: DESTINI Non-Admin Reason: IV Running Labs 05/16/24 05:38 05/16/24 05:38 Labs: Laboratory Results - last 24 hr 05/15/24 05/15/24 05/15/24 19:44 21:12 21:12 MCV MCH MCHC RDW Plt Count MPV Immature Gran % (Auto) Neut % (Auto) Lymph % (Auto) Collin % (Auto) Eos % (Auto) Baso % (Auto) Lymph # (Auto) Collin # (Auto) Eos # (Auto) Baso # (Auto) Abs Immat Gran (auto) Absolute Neuts (auto) Absolute Nucleated RBC Nucleated RBC % (auto) Anion Gap Estim Creat Clear Calc Estimated GFR Random Glucose Calcium Magnesium 2.0 Total Bilirubin AST ALT Alkaline Phosphatase Total Protein Albumin Vitamin B12 Folate CSF Tube Number 4 1 CSF Volume 1.0 CSF Appearance CSF Color CSF WBC CSF RBC CSF Neutrophils CSF Lymphocytes CSF Monocytes % CSF Other Cells % CSF Appearance (b) CSF Glucose CSF Total Protein CSF C.neoform/gat PCR CSF CMV DNA (PCR) CSF Enterovirus (PCR) CSF E. coli K1 (PCR) CSF H. influenzae (PCR) CSF HSV I (PCR) CSF HSV II (PCR) CSF HHV 6 (PCR) CSF L.monocytogenes PCR CSF N. meningitidis PCR CSF Parechovirus (PCR) CSF S. agalactiae (PCR) CSF S. pneumoniae (PCR) CSF VZV (PCR) Ethyl Alcohol < 10 05/15/24 05/15/24 05/15/24 21:12 21:12 21:12 MCV MCH MCHC RDW Plt Count MPV Immature Gran % (Auto) Neut % (Auto) Lymph % (Auto) Collin % (Auto) Eos % (Auto) Baso % (Auto) Lymph # (Auto) Collin # (Auto) Eos # (Auto) Baso # (Auto) Abs Immat Gran (auto) Absolute Neuts (auto) Absolute Nucleated RBC Nucleated RBC % (auto) Anion Gap Estim Creat Clear Calc Estimated GFR Random Glucose Calcium Magnesium Total Bilirubin AST ALT Alkaline Phosphatase Total Protein Albumin Vitamin B12 Folate CSF Tube Number CSF Volume 1.0 CSF Appearance CLEAR CLEAR CSF Color COLORLESS COLORLESS CSF WBC 16 H* CSF RBC CSF Neutrophils CSF Lymphocytes CSF Monocytes % CSF Other Cells % CSF Appearance (b) CSF Glucose CSF Total Protein CSF C.neoform/gat PCR CSF CMV DNA (PCR) CSF Enterovirus (PCR) CSF E. coli K1 (PCR) CSF H. influenzae (PCR) CSF HSV I (PCR) CSF HSV II (PCR) CSF HHV 6 (PCR) CSF L.monocytogenes PCR CSF N. meningitidis PCR CSF Parechovirus (PCR) CSF S. agalactiae (PCR) CSF S. pneumoniae (PCR) CSF VZV (PCR) Ethyl Alcohol 05/15/24 05/15/24 05/15/24 21:12 21:12 21:12 MCV MCH MCHC RDW Plt Count MPV Immature Gran % (Auto) Neut % (Auto) Lymph % (Auto) Collin % (Auto) Eos % (Auto) Baso % (Auto) Lymph # (Auto) Collin # (Auto) Eos # (Auto) Baso # (Auto) Abs Immat Gran (auto) Absolute Neuts (auto) Absolute Nucleated RBC Nucleated RBC % (auto) Anion Gap Estim Creat Clear Calc Estimated GFR Random Glucose Calcium Magnesium Total Bilirubin AST ALT Alkaline Phosphatase Total Protein Albumin Vitamin B12 Folate CSF Tube Number CSF Volume CSF Appearance CSF Color CSF WBC 29 H* CSF RBC 26 47 CSF Neutrophils 5 12 CSF Lymphocytes 84 CSF Monocytes % CSF Other Cells % CSF Appearance (b) CSF Glucose CSF Total Protein CSF C.neoform/gat PCR CSF CMV DNA (PCR) CSF Enterovirus (PCR) CSF E. coli K1 (PCR) CSF H. influenzae (PCR) CSF HSV I (PCR) CSF HSV II (PCR) CSF HHV 6 (PCR) CSF L.monocytogenes PCR CSF N. meningitidis PCR CSF Parechovirus (PCR) CSF S. agalactiae (PCR) CSF S. pneumoniae (PCR) CSF VZV (PCR) Ethyl Alcohol 05/15/24 05/15/24 05/15/24 21:12 21:12 21:13 MCV MCH MCHC RDW Plt Count MPV Immature Gran % (Auto) Neut % (Auto) Lymph % (Auto) Collin % (Auto) Eos % (Auto) Baso % (Auto) Lymph # (Auto) Collin # (Auto) Eos # (Auto) Baso # (Auto) Abs Immat Gran (auto) Absolute Neuts (auto) Absolute Nucleated RBC Nucleated RBC % (auto) Anion Gap Estim Creat Clear Calc Estimated GFR Random Glucose Calcium Magnesium Total Bilirubin AST ALT Alkaline Phosphatase Total Protein Albumin Vitamin B12 Folate CSF Tube Number 2 CSF Volume CSF Appearance CSF Color CSF WBC CSF RBC CSF Neutrophils CSF Lymphocytes 68 CSF Monocytes % 9 20 CSF Other Cells % 2 CSF Appearance (b) Clear, Colorless CSF Glucose 75 CSF Total Protein 32.7 CSF C.neoform/gat PCR Not Detected CSF CMV DNA (PCR) Not Detected CSF Enterovirus (PCR) Not Detected CSF E. coli K1 (PCR) Not Detected CSF H. influenzae (PCR) Not Detected CSF HSV I (PCR) Not Detected CSF HSV II (PCR) Not Detected CSF HHV 6 (PCR) Not Detected CSF L.monocytogenes PCR Not Detected CSF N. meningitidis PCR Not Detected CSF Parechovirus (PCR) Not Detected CSF S. agalactiae (PCR) Not Detected CSF S. pneumoniae (PCR) Not Detected CSF VZV (PCR) Not Detected Ethyl Alcohol 05/16/24 05:38 MCV 95.0 MCH 32.9 MCHC 34.6 RDW 14.7 Plt Count 383 MPV 9.6 Immature Gran % (Auto) 0.3 Neut % (Auto) 60.3 Lymph % (Auto) 25.5 Collin % (Auto) 11.3 H Eos % (Auto) 1.3 Baso % (Auto) 1.3 Lymph # (Auto) 2.3 Collin # (Auto) 1.0 Eos # (Auto) 0.1 Baso # (Auto) 0.1 Abs Immat Gran (auto) 0.03 Absolute Neuts (auto) 5.5 Absolute Nucleated RBC 0.000 Nucleated RBC % (auto) 0.0 Anion Gap 14 Estim Creat Clear Calc 95.9 Estimated GFR > 60 Random Glucose 94 Calcium 9.3 Magnesium Total Bilirubin 1.1 H AST 27 ALT 14 Alkaline Phosphatase 56 Total Protein 7.0 Albumin 3.7 Vitamin B12 208 Folate 7.3 CSF Tube Number CSF Volume CSF Appearance CSF Color CSF WBC CSF RBC CSF Neutrophils CSF Lymphocytes CSF Monocytes % CSF Other Cells % CSF Appearance (b) CSF Glucose CSF Total Protein CSF C.neoform/gat PCR CSF CMV DNA (PCR) CSF Enterovirus (PCR) CSF E. coli K1 (PCR) CSF H. influenzae (PCR) CSF HSV I (PCR) CSF HSV II (PCR) CSF HHV 6 (PCR) CSF L.monocytogenes PCR CSF N. meningitidis PCR CSF Parechovirus (PCR) CSF S. agalactiae (PCR) CSF S. pneumoniae (PCR) CSF VZV (PCR) Ethyl Alcohol Microbiology Microbiology Results: Microbiology 05/15/24 21:12 Gram Stain - Final Cerebrospinal Fluid CSF Examination - Final Fluid Description - Final Assessment and Plan (1) Alcohol use disorder: Status: Acute Plan 69M PMH alcohol dependence, hypertension presented with increasing confusion Acute on chronic toxic metabolic encephalopathy Differential includes Wernicke's encephalopathy, neurosyphilis Meningeal encephalitis panel negative, CSF culture and Gram stain negative, normal glucose Will DC acyclovir Positive RPR continue penicillin Follow-up neuro and ID Continue thiamine Alcohol dependence Monitor for withdrawal Hypertension Stable, monitor DVT prophylaxis with Lovenox Full Code reason for continued hospitalization: Altered mental status workup Quality Stroke Does the patient have a stroke diagnosis?: No VTE Prior VTE?: No VTE Risk Level:: Medical - moderate - high VTE Device Contraindication: Treatment Not Indicated VTE Drug Contraindication: N/A - Med Ordered
[2024-05-16] MEDS: 0.9 % Sodium Chloride Flush 3 ML SYRINGE IVFLUSH ×3 (08:27→23:00)
[2024-05-16] MEDS: Thiamine HCL 500 MG in 0.9 % Sodium Chloride 100 ML 210 MG IV ×3 (08:31→23:15)
[2024-05-16] MEDS: OLANZapine 10 MG VIAL IM (09:06)
[2024-05-16] MEDS: LORazepam 2 MG/ML VIAL IVPUSH ×2 (09:13→14:27)
--- NOTE | 2024-05-16 09:16 | HO.BHRESTREX ---
Behavioral Restraint Exam Behavioral Health Restraint Exam Type of Restraint: Mechanical Reason for Restraint: Substantial Risk of Harm to Others Medical Concerns for Restraint: No medical concerns, pt w/o acute inj / no noted resp/VS abnormalities
--- NOTE | 2024-05-16 09:27 | MHC.CM.PN ---
Addendum entered by Callie Still RN 05/16/24 10:29: CM spoke w son, Joao. Per Joao: Patient lives alone in an apartment. Baseline alert and oriented, though family as noted some confusion x 2 months with significant increase x 2 weeks. No DME or services. Nelsy Dickson, assists PRN w/ shopping, appts, etc. PCP @ [facility] No HCP. CM will address when oriented. DP: TBD, awaiting improvement in mental status. Goal is home w/ family support & services. Referral to [facility]. CM will continue to follow. Addendum entered by Callie Still RN 05/16/24 09:39: SECTION [address] ORTIZ Original Note: UNABLE TO COMPLETE CM ASSESSMENT W/ PATIENT PATIENT IS CONFUSED/COMBATIVE AT THIS TIME. CM CALLED NELSY DICKSON, LM WITH IMM DELIVERY AND REQUEST FOR CALL BACK.
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
--- NOTE | 2024-05-16 12:05 | PHA.MEDREC ---
Pharmacy Consult ? Medication Reconciliation Pharmacy has completed the medication reconciliation. Spoke to patients sister. She said he was suppose to be taking blood pressure medication ( lisinopril 10mg daily) but hasnt taken any meds in a long time. Got Prescribed from the dr but never followed through with getting it after first fill
--- NOTE | 2024-05-16 14:37 | PC.NURSE ---
Code Assist called at 1425 when patient combative towards sitter who was trying to redirect. Patient resisting and non cooperative with staff and needed to be restrained to give Ativan IV push, given at 1427 with good results. Patient relaxed in bed and now laying calmly with sitter present.
[2024-05-16] MEDS: PHENobarbitaL sodium 130 MG/ML IM ONCE 234 MG IM (15:57)
[2024-05-16] MEDS: PHENobarbitaL sodium 130 MG/ML VIAL IM Q3Hx2 175 MG IM ×2 (18:33→22:52)
[2024-05-17] MEDS: Penicillin G Potassium 5,000,000 UNIT in 0.9 % Sodium Chloride 100 ML 200 UNIT IV ×7 (00:06→23:24)
[2024-05-17] MEDS: LORazepam 2 MG/ML VIAL IVPUSH (00:44)
[2024-05-17 00:49] VITALS: BP 134/82; PULSE 90; RESP 18; TEMP 36.5; O2SAT 94
--- NOTE | 2024-05-17 03:32 | PC.NURSE ---
Addendum entered by Zuly Mathews RN 05/17/24 03:33: bladder scan for 584 ml . notified order for str. cath and removed 600 ml edwin urine Original Note: at 2 am pt is trying to void not able he is more agitated and touching himself in anger
[2024-05-17 07:21] VITALS: BP 126/62; PULSE 73; RESP 14; TEMP 36.2; O2SAT 96
--- NOTE | 2024-05-17 08:27 | P.PNIM_ITS ---
Subjective Subjective Date of Service: 05/17/24 Interval History: urinary retention overnight Review of Systems Review of Systems: Yes Unobtainable due to mental condition Physical Exam 2 Vital Signs: Vital Signs: Last Vital Signs Temp 97.1 F 05/17/24 07:21 Pulse 73 05/17/24 07:21 Resp 14 05/17/24 07:21 BP 126/62 05/17/24 07:21 Pulse Ox 96 05/17/24 07:21 O2 Del Method Room Air 05/17/24 07:21 BMI result Body Mass Index 23.4 Alert, oriented to place and person but not time, very poor insight Objective Data Active Medications Acetaminophen (Acetaminophen 325 Mg Tablet) 650 mg PO Q6H PRN PRN Reason: Pain, Mild (Pain Scale 1-3), fever or headache Calcium Carbonate (Calcium Carbonate 750 Mg Tab.Chew) 750 mg PO Q4H PRN PRN Reason: Heartburn Cyanocobalamin (Cyanocobalamin (Vitamin B-12) 1,000 Mcg Tablet) 1,000 mcg PO DAILY [facility] Enoxaparin Sodium (Enoxaparin Sodium 40 Mg/0.4 Ml Syringe) 40 mg SUBCUT Q24H [facility] Last Admin: 05/16/24 23:00 Dose: Not Given Documented By: SALBADOR Non-Admin Reason: Patient Refused Thiamine HCl 500 mg/ Sodium (Chloride) 105 mls @ 210 mls/hr IV Q8H [facility] Last Infusion: 05/17/24 00:11 Dose: Infused Documented By: SALBADOR Penicillin G Potassium 5,000, (000 unit/ Sodium Chloride) 100 mls @ 200 mls/hr IV Q4H [facility] Last Infusion: 05/17/24 05:31 Dose: Infused Documented By: SALBADOR Magnesium Hydroxide (Milk Of Magnesia 30 Ml Oral.Susp) 30 ml PO DAILY PRN PRN Reason: Constipation Melatonin (Melatonin 3 Mg Tablet) 6 mg PO BEDTIME PRN PRN Reason: Insomnia Ondansetron HCl (Ondansetron Hcl 4 Mg/2 Ml Vial) 4 mg IVPUSH Q8H PRN PRN Reason: Nausea and Vomiting Pharmacy Consult (Consult Rx Etoh Phenob Im/Po) 1 each MISCELLANE ONCE PRN; Protocol PRN Reason: Consult order Phenobarbital (Phenobarbital 15 Mg Tablet) 45 mg PO BID [facility] Stop: 05/18/24 21:01 Phenobarbital (Phenobarbital 15 Mg Tablet) 15 mg PO BID [facility] Stop: 05/20/24 21:01 Phenobarbital (Phenobarbital 15 Mg Tablet) 15 mg PO DAILY [facility] Stop: 05/22/24 09:01 Sodium Chloride (0.9 % Sodium Chloride Flush 3 Ml Syringe) 3 ml IVFLUSH QSHIFT [facility] Last Admin: 05/16/24 23:00 Dose: 3 ml Documented By: SALBADOR Labs 05/16/24 05:38 05/16/24 05:38 Microbiology Microbiology Results: Microbiology 05/15/24 20:12 Blood Culture - Preliminary Blood - Venous No growth after 24 hours. 05/15/24 20:11 Blood Culture - Preliminary Blood - Venous No growth after 24 hours. 05/15/24 21:12 Gram Stain - Final Cerebrospinal Fluid CSF Examination - Final Fluid Description - Final CSF Culture - Preliminary No growth to date. Assessment and Plan (1) Alcohol use disorder: Status: Acute Plan 69M PMH alcohol dependence, hypertension presented with increasing confusion Acute on chronic toxic metabolic encephalopathy Differential includes Wernicke's encephalopathy, neurosyphilis, etoh withdrawal/DTs Meningeal encephalitis panel negative, CSF culture and Gram stain negative, normal glucose Positive RPR continue penicillin Follow-up neuro and ID Continue thiamine phenobarb protocol (has been responding better to benzos than antipsychotics) Hypertension Stable, monitor DVT prophylaxis with Lovenox Full Code reason for continued hospitalization: Altered mental status workup Quality Stroke Does the patient have a stroke diagnosis?: No VTE Prior VTE?: No VTE Risk Level:: Medical - moderate - high VTE Device Contraindication: Treatment Not Indicated VTE Drug Contraindication: N/A - Med Ordered
--- NOTE | 2024-05-17 10:20 | P.CNNE_ITS ---
History of Present Illness Data of Consult Service Date: 05/17/24 Primary Care Provider: Unknown Physician HPI Reason for consult: Encephalopathy 69 years old man who apparently has been drinking alcohol was brought to hospital with acute confusion or change in mental status. He was with family and tried to jump out of the car and was brought here. He was noted to be confused and initially was not cooperative. He was given doses of benzodiazepine and a lumbar puncture was performed. Lumbar puncture was performed because is syphilis serology has been positive. There was no sign of any obvious convulsion or seizure. He was not in any pain or distress. Review of Systems 2 Review of Systems: Could not be done with the [facility] Past Medical History Medical History HTN (hypertension) Surgical History Surgical History Hx of abdominal surgery Social History Social History Household Members: Unknown / Unable to assess Alcohol intake: current Alcohol intake frequency: 0-2 drinks per day Alcohol type: beer Patient Tobacco Use Status: Never used Tobacco Substance Use Type: Marijuana Meds Allergies Allergy/AdvReac Type Severity Reaction Status Date / Time No Known Allergies Allergy Verified 05/15/24 17:36 Active Medications: Current Medications Acetaminophen (Acetaminophen 325 Mg Tablet) 650 mg PO Q6H PRN PRN Reason: Pain, Mild (Pain Scale 1-3), fever or headache Calcium Carbonate (Calcium Carbonate 750 Mg Tab.Chew) 750 mg PO Q4H PRN PRN Reason: Heartburn Cyanocobalamin (Cyanocobalamin (Vitamin B-12) 1,000 Mcg Tablet) 1,000 mcg PO DAILY [facility] Enoxaparin Sodium (Enoxaparin Sodium 40 Mg/0.4 Ml Syringe) 40 mg SUBCUT Q24H [facility]ON[facility] Last Admin: 05/16/24 23:00 Dose: Not Given Penicillin G Potassium 5,000, (000 unit/ Sodium Chloride) 100 mls @ 200 mls/hr IV Q4H [facility]ON[facility] Last Admin: 05/17/24 08:52 Dose: 200 mls/hr Thiamine HCl 500 mg/ Sodium (Chloride) 105 mls @ 210 mls/hr IV Q8H [facility] Magnesium Hydroxide (Milk Of Magnesia 30 Ml Oral.Susp) 30 ml PO DAILY PRN PRN Reason: Constipation Melatonin (Melatonin 3 Mg Tablet) 6 mg PO BEDTIME PRN PRN Reason: Insomnia Ondansetron HCl (Ondansetron Hcl 4 Mg/2 Ml Vial) 4 mg IVPUSH Q8H PRN PRN Reason: Nausea and Vomiting Pharmacy Consult (Consult Rx Etoh Phenob Im/Po) 1 each MISCELLANE ONCE PRN; Protocol PRN Reason: Consult order Phenobarbital (Phenobarbital 15 Mg Tablet) 45 mg PO BID [facility] Stop: 05/18/24 21:01 Phenobarbital (Phenobarbital 15 Mg Tablet) 15 mg PO BID [facility] Stop: 05/20/24 21:01 Phenobarbital (Phenobarbital 15 Mg Tablet) 15 mg PO DAILY [facility] Stop: 05/22/24 09:01 Sodium Chloride (0.9 % Sodium Chloride Flush 3 Ml Syringe) 3 ml IVFLUSH QSHIFT [facility] Last Admin: 05/16/24 23:00 Dose: 3 ml Home Medications ?Medication ?Instructions ?Recorded ?Confirmed ?Last Taken ?Type No Known Home Meds 05/16/24 05/16/24 Unknown History Physical Exam 2 Vital Signs: Vital Signs: Last Vital Signs Temp 97.1 F 05/17/24 07:21 Pulse 73 05/17/24 07:21 Resp 14 05/17/24 07:21 BP 126/62 05/17/24 07:21 Pulse Ox 96 05/17/24 07:21 O2 Del Method Room Air 05/17/24 07:21 BMI result Body Mass Index 23.4 Neuro: Other: Snoring and not responsive to verbal stimuli and minimally responsive to pain. A barely could open his eyes. There was no obvious gaze deviation. There was no abnormal posturing. Exam was limited. Results Labs 05/16/24 05:38 05/16/24 05:38 Labs: Head CT revealed moderately severe diffuse cerebral atrophy and moderately severe chronic microvascular ischemic changes type of findings. CSF WBC count was high. Microbiology Microbiology Results: Microbiology 05/15/24 20:12 Blood - Venous Blood Culture - Preliminary No growth after 24 hours. 05/15/24 20:11 Blood - Venous Blood Culture - Preliminary No growth after 24 hours. 05/15/24 21:12 Cerebrospinal Fluid Gram Stain - Final 05/15/24 21:12 Cerebrospinal Fluid CSF Examination - Final 05/15/24 21:12 Cerebrospinal Fluid Fluid Description - Final 05/15/24 21:12 Cerebrospinal Fluid CSF Culture - Preliminary No growth to date. Assessment and Plan (1) Encephalitis: Status: Acute 69 years old man with atypical encephalitis. With positive test for syphilis, I recommend formal treatment for neurosyphilis. Regimen of treatment should be cleared with infectious disease. He has cerebral atrophy and significant microvascular ischemic changes but that alone would not explain his mental status. An EEG is also recommended to rule out epileptic encephalopathy. I recommend supplementing vitamin B complex folate and B12. Procedures Date of Service Date of Service: 05/17/24
[2024-05-17] MEDS: Thiamine HCL 500 MG in 0.9 % Sodium Chloride 100 ML 210 MG IV ×2 (10:57→18:25)
[2024-05-17] MEDS: 0.9 % Sodium Chloride Flush 3 ML SYRINGE IVFLUSH ×3 (10:57→19:40)
--- NOTE | 2024-05-17 11:04 | MHC.CM.PN ---
PER MD ROUNDS, PT NOT READY TO DC DCP REMAINS TBD PENDING RECOVERY/?PT EVAL
--- NOTE | 2024-05-17 11:29 | PC.NURSE ---
PO phenobarbital and b-12 am dose held secondary to lethargy, aware. Has not voided this shift, bladder scanned for 168cc will continue to monitor
[2024-05-17 15:00] VITALS: BP 150/96; PULSE 96; RESP 16; TEMP 36.5; O2SAT 96
--- NOTE | 2024-05-17 18:14 | PC.NURSE ---
pt retaining urine, bladder scanned for 425, orders obtained verbally from MD for straight cath x1. drained 425 via straight cath, tolerated well, one small blood clot presen. Alerted MD to minimal po intake , no IV fluids ordered at this time, will continue to monitor
[2024-05-17 19:42] VITALS: BP 132/79; PULSE 77; RESP 18; TEMP 36.4; O2SAT 96
[2024-05-17] MEDS: Enoxaparin Sodium 40 MG/0.4 ML SYRINGE SUBCUT (23:22)
--- NOTE | 2024-05-18 | EEG_ITS ---
FINDINGS: Waking background activity consists of low-voltage fast frequencies seen diffusely intermixed with a low-voltage posterior 8 to 9 hertz alpha frequency and muscle artifact anteriorly. Throughout most of the record, the patient is drowsy with diffuse theta slowing with light sleep stages are entered briefly. Arousals are unremarkable. Photic stimulation and hyperventilation are omitted. IMPRESSION: This briefly waking and predominantly drowsy and sleep EEG is considered within normal limits. MD VARSHA Covington/NATANAEL / [id number]
--- NOTE | 2024-05-18 01:00 | PC.NURSE ---
Addendum entered by Marleny Álvarez RN 05/18/24 06:06: Pt's sister Nelsy phone #[phone], call for any updates. Addendum entered by Marleny Álvarez RN 05/18/24 05:39: Pt hasn't voided all night, no incontinence noted, bladder [id number], Dr. Pierce was notified, didn't advised for straight cath. Original Note: Pt seen on bed at shift change lethargic, woke up briefly when awaken, VSS< Phenobarb po held, Dr. Pierce was notified, pt kept comfortable and safe, sitter at bedside.
[2024-05-18] MEDS: Thiamine HCL 500 MG in 0.9 % Sodium Chloride 100 ML 210 MG IV ×3 (02:35→18:59)
[2024-05-18] MEDS: Penicillin G Potassium 5,000,000 UNIT in 0.9 % Sodium Chloride 100 ML 200 UNIT IV ×4 (03:32→16:28)
[2024-05-18 03:37] VITALS: BP 146/74; PULSE 83; RESP 18; TEMP 36.3; O2SAT 98
[2024-05-18] MEDS: LORazepam 2 MG/ML VIAL 0.5 MG IVPUSH (07:36)
[2024-05-18] MEDS: 0.9 % Sodium Chloride Flush 3 ML SYRINGE IVFLUSH ×2 (07:46→16:28)
[2024-05-18] MEDS: Haloperidol Lactate 5 MG/ML VIAL IM (08:27)
--- NOTE | 2024-05-18 09:40 | PC.NURSE ---
Pt uncooperative, increasing agitated, confused, would not get back into bed and not redirectable. Pulling at tubes and lines. Security called. Dr. Walter notified. Ordered IV ativan 0.5mg x1. Pt needed to be restrained by security to administer medication @0730. No change in pt behavior after ativan given. Order for haldol 5m IM x 1. Given @0830. Pt now in bed. Behavior slightly better. Still uncooperative but able to administer IV antibiotics and retape and rewrap IVs. Family at bedside. Pt offered breakfast but refused.
--- NOTE | 2024-05-18 10:22 | P.PNIM_ITS ---
Subjective Subjective Date of Service: 05/18/24 Interval History: Seen and evaluated this morning restless and refusing to sit and follow commands requried ativan no other events overngiht Review of Systems Review of Systems: Yes all other systems are reviewed and are negative Physical Exam 2 Vital Signs: Vital Signs: Last Vital Signs Temp 97.3 F 05/18/24 03:37 Pulse 83 05/18/24 03:37 Resp 18 05/18/24 03:37 BP 146/74 H 05/18/24 03:37 Pulse Ox 98 05/18/24 03:37 O2 Del Method Room Air 05/18/24 03:37 BMI result Body Mass Index 23.4 Const: Other: Constitutional : interactive, distressed and anxious Cardiovascular : no JVP, no lower extremity edema Respiratory : bilateral chest movement, not in resp distress Gastrointestinal: soft, lax, Non tender Skin : Warm, Dry Neurological : Alert & disoriented , No focal deficit Objective Data Active Medications Acetaminophen (Acetaminophen 325 Mg Tablet) 650 mg PO Q6H PRN PRN Reason: Pain, Mild (Pain Scale 1-3), fever or headache Calcium Carbonate (Calcium Carbonate 750 Mg Tab.Chew) 750 mg PO Q4H PRN PRN Reason: Heartburn Cyanocobalamin (Cyanocobalamin (Vitamin B-12) 1,000 Mcg Tablet) 1,000 mcg PO DAILY [facility] Last Admin: 05/17/24 11:06 Dose: Not Given Documented By: RODOLFO Non-Admin Reason: lethargy Enoxaparin Sodium (Enoxaparin Sodium 40 Mg/0.4 Ml Syringe) 40 mg SUBCUT Q24H [facility] Last Admin: 05/17/24 23:22 Dose: 40 mg Documented By: MELA Penicillin G Potassium 5,000, (000 unit/ Sodium Chloride) 100 mls @ 200 mls/hr IV Q4H [facility] Last Infusion: 05/18/24 09:55 Dose: Infused Documented By: EDI Thiamine HCl 500 mg/ Sodium (Chloride) 105 mls @ 210 mls/hr IV Q8H [facility] Last Infusion: 05/18/24 03:28 Dose: Infused Documented By: MELA Magnesium Hydroxide (Milk Of Magnesia 30 Ml Oral.Susp) 30 ml PO DAILY PRN PRN Reason: Constipation Melatonin (Melatonin 3 Mg Tablet) 6 mg PO BEDTIME PRN PRN Reason: Insomnia Ondansetron HCl (Ondansetron Hcl 4 Mg/2 Ml Vial) 4 mg IVPUSH Q8H PRN PRN Reason: Nausea and Vomiting Pharmacy Consult (Consult Rx Etoh Phenob Im/Po) 1 each MISCELLANE ONCE PRN; Protocol PRN Reason: Consult order Phenobarbital (Phenobarbital 15 Mg Tablet) 45 mg PO BID [facility] Stop: 05/18/24 21:01 Last Admin: 05/17/24 21:54 Dose: Not Given Documented By: MELA Non-Admin Reason: pt very lethargic, unsafe for po, Stan Bagley Phenobarbital (Phenobarbital 15 Mg Tablet) 15 mg PO BID [facility] Stop: 05/20/24 21:01 Phenobarbital (Phenobarbital 15 Mg Tablet) 15 mg PO DAILY [facility] Stop: 05/22/24 09:01 Quetiapine Fumarate (Quetiapine Fumarate 25 Mg Tablet) 25 mg PO BID PRN PRN Reason: anxiety/restlessness Sodium Chloride (0.9 % Sodium Chloride Flush 3 Ml Syringe) 3 ml IVFLUSH QSHIFT [facility] Last Admin: 05/18/24 07:46 Dose: 3 ml Documented By: EDI Labs 05/16/24 05:38 05/16/24 05:38 Microbiology Microbiology Results: Microbiology 05/15/24 21:12 Gram Stain - Final Cerebrospinal Fluid CSF Examination - Final Fluid Description - Final CSF Culture - Preliminary No growth after 2 days 05/15/24 20:12 Blood Culture - Preliminary Blood - Venous No growth after 48 hours. 05/15/24 20:11 Blood Culture - Preliminary Blood - Venous No growth after 48 hours. Assessment and Plan (1) Alcohol use disorder: Status: Acute (2) Acute encephalopathy: Status: Acute Plan 69M PMH alcohol dependence, hypertension presented with increasing confusion Acute on chronic toxic metabolic encephalopathy Differential includes Wernicke's encephalopathy, neurosyphilis, etoh withdrawal/DTs Meningeal encephalitis panel negative, CSF culture and Gram stain negative, normal glucose Nagative CSF culture Positive RPR ab, continue penicillin Follow-up neuro and ID Continue thiamine phenobarb protocol Ativan and Seroquel as needed for anxiety control Hypertension Stable, monitor DVT prophylaxis with Lovenox Full Code reason for continued hospitalization: Altered mental status workup Quality Stroke Does the patient have a stroke diagnosis?: No VTE Prior VTE?: No VTE Risk Level:: Medical - moderate - high VTE Device Contraindication: Treatment Not Indicated VTE Drug Contraindication: N/A - Med Ordered
[2024-05-18] MEDS: PHENobarbitaL 15 MG TABLET 45 MG PO (12:36)
[2024-05-18] MEDS: Cyanocobalamin (Vitamin B-12) 1,000 MCG TABLET 1000 MCG PO (12:37)
[2024-05-18 15:30] VITALS: BP 136/85; PULSE 70; RESP 12; TEMP 36.2; O2SAT 95
[2024-05-18] MEDS: Tamsulosin HCL 0.4 MG CAPSULE PO (16:28)
[2024-05-18 20:00] VITALS: BP 119/75; PULSE 75; RESP 16; TEMP 36.4; O2SAT 97
--- NOTE | 2024-05-18 20:55 | W.PM.IDCN ---
History of Present Illness Data of Consult Service Date: 05/17/24 Requesting physician: Guillermo Yee Primary Care Provider: Unknown Physician HPI Reason for consult: CSF pleiocytosis,positive syphilis antibodies He presents on 05/15 being agitated and combative. Workup included positive syphilis testing. He has positive EIA screening test and tpallidum antibodies are pending as is RPR pending. I talked to [facility] and he had syphilis testing positive in 2022 and titer was 1 :1. He was oriented at that time and said he had been treated with three doses of IM Penicillin for syphilis. He had LP and had 29 WBCs. He remains confused. Review of Systems Review of Systems: Yes Unobtainable due to mental condition PMFSH Past Medical History Medical History HTN (hypertension) Family History Family history: reviewed and not pertinent Surgical History Surgical History Hx of abdominal surgery Social History Social History Household Members: Unknown / Unable to assess Alcohol intake: current Alcohol intake frequency: 0-2 drinks per day Alcohol type: beer Comment: sitter at bedside Patient Tobacco Use Status: Never used Tobacco Substance Use Type: Marijuana Meds Allergies Allergy/AdvReac Type Severity Reaction Status Date / Time No Known Allergies Allergy Verified 05/15/24 17:36 Active Medications: Current Medications Acetaminophen (Acetaminophen 325 Mg Tablet) 650 mg PO Q6H PRN PRN Reason: Pain, Mild (Pain Scale 1-3), fever or headache Calcium Carbonate (Calcium Carbonate 750 Mg Tab.Chew) 750 mg PO Q4H PRN PRN Reason: Heartburn Cyanocobalamin (Cyanocobalamin (Vitamin B-12) 1,000 Mcg Tablet) 1,000 mcg PO DAILY [facility] Last Admin: 05/18/24 12:37 Dose: 1,000 mcg Enoxaparin Sodium (Enoxaparin Sodium 40 Mg/0.4 Ml Syringe) 40 mg SUBCUT Q24H [facility] Last Admin: 05/17/24 23:22 Dose: 40 mg Thiamine HCl 500 mg/ Sodium (Chloride) 105 mls @ 210 mls/hr IV Q8H [facility] Last Infusion: 05/18/24 19:30 Dose: Infused Magnesium Hydroxide (Milk Of Magnesia 30 Ml Oral.Susp) 30 ml PO DAILY PRN PRN Reason: Constipation Melatonin (Melatonin 3 Mg Tablet) 6 mg PO BEDTIME PRN PRN Reason: Insomnia Ondansetron HCl (Ondansetron Hcl 4 Mg/2 Ml Vial) 4 mg IVPUSH Q8H PRN PRN Reason: Nausea and Vomiting Pharmacy Consult (Consult Rx Etoh Phenob Im/Po) 1 each MISCELLANE ONCE PRN; Protocol PRN Reason: Consult order Phenobarbital (Phenobarbital 15 Mg Tablet) 45 mg PO BID [facility] Stop: 05/18/24 21:01 Last Admin: 05/18/24 12:36 Dose: 45 mg Phenobarbital (Phenobarbital 15 Mg Tablet) 15 mg PO BID [facility] Stop: 05/20/24 21:01 Phenobarbital (Phenobarbital 15 Mg Tablet) 15 mg PO DAILY [facility] Stop: 05/22/24 09:01 Quetiapine Fumarate (Quetiapine Fumarate 25 Mg Tablet) 25 mg PO BID PRN PRN Reason: anxiety/restlessness Sodium Chloride (0.9 % Sodium Chloride Flush 3 Ml Syringe) 3 ml IVFLUSH QSHIFT [facility] Last Admin: 05/18/24 16:28 Dose: 3 ml Tamsulosin HCl (Tamsulosin Hcl 0.4 Mg Capsule) 0.4 mg PO DAILY [facility] Last Admin: 05/18/24 16:28 Dose: 0.4 mg Home Medications ?Medication ?Instructions ?Recorded ?Confirmed ?Last Taken ?Type No Known Home Meds 05/16/24 05/16/24 Unknown History Physical Exam Vital Signs: Vital Signs: Last Vital Signs Temp 97.5 F 05/18/24 20:00 Pulse 75 05/18/24 20:00 Resp 16 05/18/24 20:00 BP 119/75 05/18/24 20:00 Pulse Ox 97 05/18/24 20:00 O2 Del Method Room Air 05/18/24 20:00 BMI result Body Mass Index 23.4 Const: General: cooperative HEENT: Head: Yes normal to inspection Face and sinus: Yes normal facial exam Mouth: Normal oral and palatal mucosa present Teeth and gingiva: dentition normal Eyes: General: appearance normal, both eyes and all related structures Pupils: Equal, round and reactive pupils present Resp: Effort & Inspection: normal respiratory effort Cardio: Rate: regular rate Rhythm: regular rhythm GI: Palpation (GI): Soft to palpation and nontender : General: Yes no CVA tenderness Back/Spine/Pelvis: Back: no CVA tenderness Skin: General skin exam: no rashes or lesions noted Neuro: General: moves all extremities Cranial nerves: Yes Equal, round and reactive pupils present Extrem: General: Yes normal to inspection Psych: Other: confusion Results Labs 05/16/24 05:38 05/16/24 05:38 Microbiology Microbiology Results: Microbiology 05/15/24 21:12 Cerebrospinal Fluid Gram Stain - Final 05/15/24 21:12 Cerebrospinal Fluid CSF Examination - Final 05/15/24 21:12 Cerebrospinal Fluid Fluid Description - Final 05/15/24 21:12 Cerebrospinal Fluid CSF Culture - Preliminary No growth after 2 days 05/15/24 20:12 Blood - Venous Blood Culture - Preliminary No growth after 48 hours. 05/15/24 20:11 Blood - Venous Blood Culture - Preliminary No growth after 48 hours. Assessment and Plan (1) Encephalitis: Status: Acute (2) Alcohol use disorder: Status: Acute Plan He has no infection seen in CSF and slight elevation WBC, nonspecific. He has been treated for syphilis and low titer so dont think neurosyphilis. Can stop Penicillin. Would treat alcohol use disorder.
[2024-05-18] MEDS: Enoxaparin Sodium 40 MG/0.4 ML SYRINGE SUBCUT (22:58)
[2024-05-19] MEDS: 0.9 % Sodium Chloride Flush 3 ML SYRINGE IVFLUSH (02:35)
[2024-05-19] MEDS: Thiamine HCL 500 MG in 0.9 % Sodium Chloride 100 ML 210 MG IV (02:36)
[2024-05-19 03:25] VITALS: BP 133/76; PULSE 62; RESP 15; TEMP 36.2; O2SAT 96
[2024-05-19] MEDS: LORazepam 2 MG/ML VIAL 1 MG IVPUSH (06:32)
--- NOTE | 2024-05-19 07:19 | PC.NURSE ---
Patient woke agitated at 0600 wanting to go home/leave the hospital. RN attempted to speak with patient but he became even more agitated stating that he doesnt care what we want, he doesnt want any help and that he is leaving and we cannot keep him here. RN had previously walked patient to the br earlier in the shift and he was very unsteady on his feet but he was calm and cooperative at that time. Unsure what happened this morning but this RN could not reason with him and he didnt want to listen to staff. RN offered patient seroquel to help him relax but patient refused. RN paged MD and texted situation. calculus professor also present to assist patient but patient was set on leaving and stated he was going to [place] if we attempted to keep him here. He was attempting to get oob and security was called. Security attempted to rationalize with him but patient did not want to listen or talk with him. MD ordered IV ativan. RN explained to patient what the doctor wanted for him but patient refused. 0630 IV ativan administered with holding restraint for 20 seconds with calming effect. Will continue to monitor patient and patients behavior.
[2024-05-19 08:04] VITALS: BP 133/76; PULSE 62; O2SAT 96
--- NOTE | 2024-05-19 10:41 | W.MHC.F2F ---
Service Date Service Date: 05/19/24 Encounter Date of encounter: 05/19/24 Reasons for Services Signs and symptoms assessed: Alcohol abuse and withdrawal New medicaitons physical deconditioning Reason for mcc: neurological assessment, medication management and teach disease management Reason for physical therapy: home safety and mobility and therapeutic exercises Homebound: Leaving the home is medically contraindicated at this time without the asist of a device and/or another person due th the listed conditions above and below. Reason homebound: unable to drive Certification: Based on the above findings, I certify that this patient is confined to the home and needs intermittent mcc care, physical therapy and/or speech therapy, or continues to need occupational therapy. The patient is under my care, and I have initiated the establishment of the plan of care. The patient will be followed by a physician who will periodically review the plan of care. Time Spent With Patient Time: Total time managing care of this patient today ____ minutes.
--- NOTE | 2024-05-19 11:06 | P.DS_ITS ---
DS: Providers Provider Date of Service: 05/19/24 Date of admission: 05/15/24 23:24 Date of discharge: 05/19/24 Primary care physician: Unknown Physician Consults: 05/15/24 23:26 Consult to Neurology Routine Consulting Provider: [facility] Reason for consultation: AMS 05/15/24 23:30 Consult to Infectious Diseases Routine Consulting Provider[place] [facility] Reason for consultation: AMS 05/16/24 14:33 Consult to Psychiatry Stat Consulting Provider: Psych [facility] Reason for consultation: ams 05/19/24 07:39 Addiction Medicine Routine Consulting Provider: [facility] Reason for consultation: alcohol abuse DS: Diagnosis Discharge Diagnosis (1) Alcohol use disorder: Status: Acute (2) Alcohol withdrawal delirium, acute, hyperactive: Status: Acute (3) Acute encephalopathy: Status: Acute (4) Acute retention of urine: Status: Acute DS: Summary Hospital Course Hospital Course: Admission note HPI This is a 69-year-old male with pertinent history of alcohol use disorder, hypertension not on medications who was brought to the emergency department for evaluation of increasing confusion. Unable to obtain any history from the patient. He was given midazolam and lorazepam prior to my evaluation for diagnostic LP in the ER. History obtained from ER provider and chart review. Patient drinks alcohol every day and was brought to the ER for increasing confusion over the last 2 months which worsened over the last 2 weeks. He was seen in the ER in a.m. on the day of presentation. Patient was considered for inpatient admission for evaluation of confusion and treatment of possible Wernic ke's encephalopathy but patient did not want to stay and decided to leave from the ER. As per the sister, patient tried to jump out of the car and was very confused so he was brought back to the ER. 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 Patient was given IV penicillin and diagnostic LP performed. Hospital course The patient was admitted for evaluation of Acute toxic metabolic encephalopathy which was concerning to be secondary to Neurosyphilis as he had +ve testing before. other differential includes Wernicke's encephalopathy, Alcohol withdrawal/DTs and vascular dementia. Meningeal encephalitis panel negative, CSF culture and Gram stain negative, normal glucose with Nagative CSF culture. He was started on Penicillin and evaluated by neurology and ID. Upon further investigation he was treated for syphilis on 03/2023 with ANtibiotics by [facility]. ID recommended to discontinue PEnicillin as that treatment should prevent any neurosyphilis. He was started on PHenobarbital protocol with fair response as his mentation improved back to baseline. ID thinks the elevated WBCs in CSF are non-specific and the need to focus on alcohol related diagnosis. Head CT showed Chronic microvascular ischemic changes with no CT evidence of acute intracranial abnormality. We can not rule out diagnosis of vascular dementia at this stage but he will need further evaluation in outpatient setting for dementia with his PCP team. Addiction team consulted. EEG was done and read by neurology with no reported seizure activity but general slowing. Treated with IV Thiamine and PO Multivitamin. Ativan used as needed for anxiety\restlessness. The patient was difficult and refused most services as his main focus was about going back home. I spoke with his sister Nelsy who agrees to become his HCP. They will be around him to make sure he is safe at home. He will have visiting nurses upon discharge. Advised total abstinence from Alcohol. Tamsulosin was prescribed with good effect as he had 2 incidents of retention requiring straight cathetarization. He was able to pass urine after starting the medication. He lives alone and he will be a high risk for readmission if his mental status deteriorates again. Discharge plan Take Multivitamin and Thiamine as prescribed Tamsulosin to help with urine flow we Advise you complete abstinence from Alcohol Visiting nurses will follow with you at home Time Attestation Discharge Coordination Time (in mins): 43 Quality: Safe Use of Opioids Does Pt have an Active Cancer Diagnosis on the Problem List?: No Quality: Stroke Does the patient have a stroke diagnosis?: No Physical Exam Vital Signs: Vital Signs: Last Vital Signs Temp 97.2 F 05/19/24 03:25 Pulse 62 05/19/24 08:04 Resp 15 05/19/24 03:25 BP 133/76 05/19/24 08:04 Pulse Ox 96 05/19/24 08:04 O2 Del Method Room Air 05/19/24 03:25 BMI result Body Mass Index 23.4 Const: Other: Constitutional : interactive, calm and comfortable Cardiovascular : no JVP, no lower extremity edema Respiratory : bilateral chest movement, not in resp distress Gastrointestinal: soft, lax, Non tender Skin : Warm, Dry Neurological : Alert & oriented to self and place , No focal deficit DS: Data Data Completed and Pending Labs on day of discharge: Preliminary micro results at discharge 05/15/24 20:12 Blood Culture - Preliminary Blood - Venous No growth after 48 hours. 05/15/24 20:11 Blood Culture - Preliminary Blood - Venous No growth after [address] scan - head: My impression: CT/CT head/brain wo IV con IMPRESSION: 1. Chronic microvascular ischemic changes with no CT evidence of acute intracranial abnormality. 2. Mild interval worsening in encephalomalacia with volume loss centered within the left posterior parietal/occipital lobe. This may further evaluated with MRI imaging if clinically indicated. Electronically signed by: Selwyn Gamble MD 05/15/2024 12:52 PM EDT RP Discharge Plan Discharge Anticipated Discharge Date/Time: 05/19/24 10:59 Patient Disposition: Home Health Service Discharge Diagnosis: Encephalopathy Alcohol use disorder with alcohol withdrawal Referrals: Melissa Garcia [Outside] - 1 Week ([facility]YSICAL THERAP[facility]- A NURSE WILL CALL TO SET UP FIRST VISIT) Physician,Johny J [Primary Care Provider] - 1 Week Discharge Medications: New multivitamin [Daily-Gricelda] Tablet 1 tab PO DAILY Qty: 90 0RF tamsulosin 0.4 mg Capsule 0.4 mg PO DAILY Qty: 90 0RF thiamine mononitrate (vit B1) 100 mg Tablet 100 mg PO DAILY Qty: 90 0RF Discharge Orders: Discharge Order (Routine); Ordered 05/19/24 Ordered By: Divine Walter Diet: Advance to usual diet Activity on Discharge: As tolerated Stand Alone Forms: Patient Portal Discharge page Print Language: Pashto Care Plan Goals: Take Multivitamin and Thiamine as prescribed Tamsulosin to help with urine flow we Advise you complete abstinence from Alcohol Visiting nurses will follow with you at home Health Concerns: Alcohol abuse Plan of Treatment: Multivitamin Alcohol avoidance Assessment: as above Discharge Date/Time: 05/19/24 14:32
--- NOTE | 2024-05-19 11:33 | MHC.RECOVRN ---
Met with pt in 362 after consult placed to Addiction Medicine for alcohol use. Pt had been admitted with acute encephalopathy, now more clear. Pt reports alcohol use, 1 24 ounce beer daily. Reports he sometimes goes 2-3 days without alcohol. Denies concerns regarding his alcohol use at this time. Discussed recovery supports and options if pt ever feels he needs support. Denies other questions or concerns for t/w.
[2024-05-19] MEDS: Tamsulosin HCL 0.4 MG CAPSULE PO (11:35)
--- NOTE | 2024-05-19 11:47 | MHC.CM.PN ---
DP: PT HAS BEEN MEDICALLY CLEARED FOR DC HOME WITH NEW MATTHEW BRITTA, NEW REFERRAL FOR [facility]. SISTER/HCP TRACY UPDATED ON DC AND WILL BE IN TO P/U PT THIS AFTERNOON. SISTER REQUESTS THE [facility] CONTACT HER TO SET UP VISITS, MATTHEW LIAISON UPDATED.
[2024-05-19 18:04] LABS: VDRL Qualitative CSF Nonreactive (Nonreactive)
== END 2024-05-19 14:32 | disposition home health service (06) | DRG 896 ==
LOC: HO.ED 19:05 → HO.EDOVER 23:28 → HO.S3 05-16 00:26
PROVIDERS: Physician Assistant Medical; Admitting Provider Student in an Organized Health Care Education/Training Program; Emergency Provider Emergency Medicine; Visit Provider Student in an Organized Health Care Education/Training Program
DX: F10.931 Alcohol use, unspecified with withdrawal delirium (principal); G92.8 Other toxic encephalopathy; E51.2 Wernicke's encephalopathy; F01.50 Vascular dementia, unspecified severity, without behavioral disturbance, psychotic disturbance, mood disturbance, and anxiety; I10 Essential (primary) hypertension; Z78.1 Physical restraint status; Z86.19 Personal history of other infectious and parasitic diseases; R33.9 Retention of urine, unspecified; Z79.899 Other long term (current) drug therapy
CPT/HCPCS: 36415; 70450; 80053; 80307; 81001; 82140; 82607; 82746; 82945; 83690; 83735; 84157; 85025; 86592; 86780; 87015; 87040; 87070; 87205; 87483; 89051; 93005; 95816; 97163; 99284; 99285; J0133; J1630; J1650; J2060; J2250; J2359; J2540; J2560; J3411

== ENCOUNTER → 2024-05-15 23:24 | Outpatient (BNV) | payer MEDICARE, MEDICAID, SELFPAY | PROVIDERS: Admitting Provider Student in an Organized Health Care Education/Training Program; Emergency Provider Emergency Medicine; Visit Provider Psychiatry & Neurology Neurology | DX: G04.90 Encephalitis and encephalomyelitis, unspecified (principal) | CPT/HCPCS: 99222 ==

== ENCOUNTER → 2024-05-15 23:24 | Outpatient (BNV) | payer MEDICARE, MEDICAID, SELFPAY | PROVIDERS: Admitting Provider Student in an Organized Health Care Education/Training Program; Emergency Provider Emergency Medicine; Visit Provider Internal Medicine | DX: G04.90 Encephalitis and encephalomyelitis, unspecified (principal); F10.90 Alcohol use, unspecified, uncomplicated | CPT/HCPCS: 99222 ==

== ENCOUNTER → 2024-05-15 23:24 | Outpatient (BNV) | payer MEDICARE, MEDICAID, SELFPAY | PROVIDERS: Admitting Provider Student in an Organized Health Care Education/Training Program; Emergency Provider Emergency Medicine; Visit Provider Student in an Organized Health Care Education/Training Program | DX: F10.930 Alcohol use, unspecified with withdrawal, uncomplicated (principal); G93.40 Encephalopathy, unspecified | CPT/HCPCS: 99223; 99232; 99233; 99239; G0180 ==

== ENCOUNTER → 2024-12-18 07:51 | Outpatient (BNV) | payer MEDICARE, MEDICAID, SELFPAY | PROVIDERS: PCP Student in an Organized Health Care Education/Training Program; Visit Provider Radiology Diagnostic Radiology | DX: G93.89 Other specified disorders of brain (principal) | CPT/HCPCS: 70551 ==

== ENCOUNTER 2024-12-18 08:00 | Outpatient (REF) | payer MEDICARE, MEDICAID, SELFPAY ==
--- NOTE | ~2024-12-18 | MR_ITS ---
CLINICAL HISTORY: pt with worsening memory loss, hx of alcohol use MR Brain without gadolinium Comparison: CT/AL/SR - CT HEAD/BRAIN WO IV CON - 05/15/24 12:20 EDT Findings: Encephalomalacia within the right posterior temporal and occipital lobes. Multifocal areas of restricted diffusion within the bilateral occipital lobes. This is best seen medially in the right occipital lobe on images 12 through 15 of series 6 and within the left occipital lobe on image 10 and 11 of series 6. Tiny focus of restricted diffusion within the right thalamus image 15 series 6. Mild global volume loss with subcortical and periventricular T2 hyperintensities suggesting chronic microangiopathy. Old bilateral basal ganglia lacunar infarcts. Small microhemorrhage in the right occipital lobe image 25 series 10. No intra-axial mass or acute appearing hemorrhage. No midline shift. No hydrocephalus. Major vascular flow voids are intact. Orbital contents are unremarkable. The sinuses and mastoid air cells are predominantly clear. No focal bone lesion. IMPRESSION: Left temporo-occipital encephalomalacia. Focal restricted diffusion within the bilateral occipital lobe consistent with acute ischemia as described above. Punctate focus of restricted diffusion within the right thalamus. Changes of chronic microangiopathy with bilateral old lacunar infarcts of the basal ganglia. Global volume loss. This document has been electronically signed by: Carmen Thurman MD on 12/18/2024 09:05:20
--- OUTSIDE RECORDS SUMMARY | 2024-12-18 08:02 | XMS_ITS | Clinical Summary ---
Author Organization [employer] Address [address] [place] [address] Care Team Providers Care Looper Fixer Name Role Phone Nydia Simon MD Primary Care Pro vider Allergies No known active allergies Medications Blood Pressure Monitor kit Check blood pressure twice a wee. Dx hypertension 1 kit 05/19/20 Active Multiple Vitamin (multivitamin ) tablet Take 1 tablet by mouth Once per day. PLEASE make sure includes thiamine, Vit B12 and folic acid -thanks 90 tablet 1 12/09/19 25 Active Multiple Vitamin (multivitamin ) tablet Take 1 tablet by mouth Once per day. PLEASE make sure includes thiamine, Vit B12 and folic acid -thanks 90 tablet 1 06/10/20 24 025 Discontinued(R eorder (will not trigger notification to Pharmacy)) tamsulosin (Flomax) 0.4 MG 24 hr capsule Take 1 capsule (0.4 mg) by mouth Once per day. 30 capsule 2 06/10/20 24 025 Discontinued lisinopril 10 MG tablet Take 1 tablet (10 mg) by mouth Once per day. 30 tablet 09/08/19 25 025 Discontinued(O ther) tamsulosin (Flomax) 0.4 MG 24 hr capsule TAKE 1 CAPSULE (0.4 MG) BY MOUTH ONCE PER DAY. 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 12/10/2024 Cognitive developmental delay 12/10/2024 Illiterate 12/10/2024 Dementia associated with alcoholism 06/10/2024 Assessment & Plan (06/10/2024 12:25 PM EST): C/w thiamin and multivitimin supplementation Family educated about his condition I will refer him to memory clinic [facility] Poor memory 05/19/2023 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 History of tobacco use 05/19/2023 Transaminitis 05/19/2023 Alcohol use 05/19/2023 Hx of gastric ulcer 05/19/2023 Hypertension 05/19/2023 Assessment & Plan (06/10/2024 12:25 PM EST): Controlled with current interventions Health care maintenance 05/19/2023 Encounters Date Type Department Care Team Description 12/08/2024 3:00 PM EDT Office Visit [address] [id number] Nydia Simon MD Screening for colon cancer (Primary Dx); Colon cancer screening; Annual physical exam; Memory loss; Encounter for screening for infections with a predominantly sexual mode of transmission; Encounter for screening for human immunodeficiency virus (HIV); Encounter for screening for other viral diseases; Asymptomatic neurosyphilis; Other infectious disease; Vitamin D deficiency, unspecified; Dietary counseling; Exercise counseling; Unspecified psychosis not due to a substance or known physiological condition (CMS/HCC); Dementia associated with alcoholism, with psychotic disturbance, unspecified dementia severity (CMS/HCC); Cognitive developmental delay; Illiterate 12/08/2024 Travel 12/07/[address] [address] Nydia Simon MD CHART PREP 12/04/[address] [phone] Nydia Gotti MD 12/01/2024 Patient Outreach [facility] [address] [place], [place] [phone] Nydia Simon MD Pre-visit Planning (SDOH will need to be completed in office. ) 09/28/2024 Telephone [facility] [address] [place] [phone] Nydia Simon MD from Last 3 Months Immunizations Immunization Administration Dates Next Due Influenza High-dose Quadrivalent Preservative Fr ee 05/19/2023 Pneumococcal Conjugate PCV 20 05/19/2023 Tdap 04/16/2023 Social History Tobacco Use Types Packs/Day Years Used Date Smoking Tobacco: Never Passive Smoke Exposure: Never Smokeless Tobacco: Never Comments:Started 13 years of age until 61 y of age -stopped 9 years ago) smoke for 48 years) -used to smoke 10 cig a day--PQT a year calc 24 Alcohol Use Standard Drinks/Week Comments Never 0 (1 standard drink = 0.6 oz pure alcohol) hx of heavy drinking -beers,vodka-stopped 20 y ago--states now stopped 7 months Depression Answer Date Recorded Patient Health Questionnaire-9 Score 0 04/16/2023 Housing Stability Answer Date Recorded What is your housing situation today? I have uriel castellon 05/08/[address] you li ve. Do you have problems with any of the following? None of the above 05/08/2023 Food Insecurity Answer Date Recorded Within the past 12 months, y ou worried that your food would run out before you got money to buy more: Never True 05/08/2023 Within the past 12 months,th e food you bought just didn't last and you didn't have enough money to get more: Never True Transportation Answer Date Recorded In the past 12 months, has l ack of transportation kept you from medical appts, meetings, work or from getting things needed for daily living? No 05/08/2023 Utilities Answer Date Recorded In the past 12 months, has t he electric, gas, oil or water company threatened to shut off services in your home? No 05/08/2023 Depression Answer Date Recorded Patient Health Questionnaire-2 Score 0 04/16/2023 Sex and Gender Information Value Date Recorded Sex Assigned at Male 05/20/2022 10:17 AM EDT Legal Sex Male 10:17 AM EDT Gender Identity Male 04/11/2023 10:34 AM EDT Sexual Orientation Straight 04/16/2023 9: 28 AM EDT Last Filed Vital Signs Vital Sign Reading Time Taken Comments Blood Pressure 127/83 12/08/2024 3:04 PM EDT Pulse 75 12/08/2024 3:04 PM EDT Temperature 36.5 ??C (97.7 ??F) 12/08/2024 3:04 PM ED T Respiratory Rate 20 12/08/2024 3:04 PM EDT Oxygen Saturation 95% 12/08/2024 3:04 PM EDT Inhaled Oxygen Concentration - - Weight 76.5 kg (168 lb 9.6 oz) 12/08/2024 3:04 P M EDT Height 170.2 cm (5' 7 ) 12/08/2024 3:04 PM EDT Body Mass Index 26.41 12/08/2024 3:04 PM EDT Plan of Treatment Upcoming Encounters Date Type Department Care Team (Late st Contact Info) Description 01/14/2025 10:30 AM EDT Clinical Support [address] [phone] 02/04/2025 9:30 AM EDT Office Visit [address] [phone] Nydia Simon MD [address] [place] [address] [phone] Health Maintenance Due Date Last Done Comments CT Colonography 1954 Colonoscopy 1954 Colorectal Cancer Screening 1954 FIT DNA/Cologuard 1954 FIT 1954 FOBT 1954 Sigmoidoscopy 1954 Zoster Vaccines (1 of 2) 2004 COVID-19 Vaccine ( - 2023-2 5 season) 2024 Influenza Vaccine (#1) 2024 05/19/2023 Depression Screening 04/16/2024 04/16/2023, 04/16/2023 SDOH Screening 04/16/2024 04/16/2023 Alcohol/Substance Use Screening 12/08/2025 12/08/2024 Tobacco Screening 12/08/2025 12/08/2024 Lipid Panel 04/16/2028 04/16/2023 RSV Patients and Patients Aged 60 years or older (1 - 1-dose 75+ series) 2029 DTaP/Tdap/Td Vaccines (2 - T d or Tdap) 04/16/2033 04/16/2023 Hepatitis C Screening Completed 04/16/2023 Pneumococcal Vaccine: 50+ Years Completed 05/19/2023 HIB Vaccines Aged Out No longer eligi ble based on patient's age to complete this topic HPV Vaccines Aged Out No longer eligi ble based on patient's age to complete this topic Hepatitis A Vaccines Aged Out No long er eligible based on patient's age to complete this topic Hepatitis B Vaccines Aged Out No long er eligible based on patient's age to complete this topic IPV Vaccines Aged Out No longer eligi ble based on patient's age to complete this topic Meningococcal B Vaccine Aged Out No l onger eligible based on patient's age to complete this topic Meningococcal Vaccine Aged Out No shankar eloy eligible based on patient's age to complete this topic RSV under 20 months Aged Out No longe r eligible based on patient's age to complete this topic Rotavirus Vaccines Aged Out No longer eligible based on patient's age to complete this topic Procedures Procedure Name Priority Date/Time Associated Diagnosis Comments HEPATITIS C AB W/REFL TO HCV RNA, QN, PCR Routine 04/16/2023 10:38 AM EDT Health care maintenance LIPID PANEL, STANDARD Routine 04/16/2023 10:38 AM EDT Health care maintenance from Last 3 Months or Most Recently Relevant to Health Maintenance Results * Hepatitis C Antibody with Reflex to HCV, RNA, Quantitative, Real-Time PCR (04/16/2023 10:38 AM EDT) Hepatitis C Antibody Nonreactive Nonreactive [facility] Comment:Antibodies to HCV no t detected; does not exclude early acuteHCV infection. Blood Venous blood specimen / Unknown 04/16/2023 10:38 AM EDT 04/16/2023 1:07 PM EDT us Nydia Eugene MD LAB BLOOD ORDERAB LES Final Result [facility] [address] [place] [address] [phone] * (ABNORMAL) Lipid Panel, Standard (04/16/2023 10:38 AM EDT) Triglycerides 63 <150 mg/dL [facility] Comment:Desirable Triglyceri de: less than 150 mg/dLBorderline High Triglyceride 150-199 mg/dLHigh Triglyceride: 200-499 mg/dLVery High Triglyceride: greater than or equal to 5OO mg/dL Cholesterol 183 <200 mg/dL [facility] Comment:Desirable Cholestero l: less than 200 mg/dLBorderline High Cholesterol: 200-239 mg/dLHigh Cholesterol: greater than 239 mg/dL LDL Cholesterol Calculated 116(H) <100 mg/dL [facility] Comment:Desirable LDL: less than 100 mg/dLNear Optimal/Above Optimal LDL: 110- 129 mg/dLBorderline High LDL: 130-159 mg/dLHigh LDL: 160-189 mg/dLVery High LDL: greater than or equal to 190 mg/dL HDL Cholesterol 55 >40 mg/dL [facility] Comment:Desirable HDL: great er than 40 mg/dL Note: This HDL assay may give artificially low results in patients with liver disease. Blood Venous blood specimen / Unknown 04/16/2023 10:38 AM EDT 04/16/2023 1:07 PM EDT Nydia Eugene MD LAB BLOOD ORDERAB LES Final Result [facility] [address], [place] [phone] from Last 3 Months or Most Recently Relevant to Health Maintenance [place] [address] [place] [address] STANDARD MEDICARE Care Teams Looper Fixer Relationship Specialty Start Date End Date Nydia Simon MD [address] [place] [address] PCP - General Internal Medicine 04/11/23 [email or web address] 05/27/24
== END 2024-12-18 08:01 | disposition home or self-care (01) ==
LOC: HO.MRI 08:00
PROVIDERS: PCP Student in an Organized Health Care Education/Training Program; Visit Provider Student in an Organized Health Care Education/Training Program
DX: R41.3 Other amnesia (principal)
CPT/HCPCS: 70551

== ENCOUNTER 2024-12-22 20:26 | Inpatient (IN) | payer MEDICARE, MEDICAID, SELFPAY ==
--- NOTE | ~2024-12-22 | XR_ITS ---
CLINICAL HISTORY: fever Exam: AP portable chest x-ray. Comparison: None. Findings: Lungs are hypoinflated. Cardiac silhouette is at the upper limits of normal for size. Diffuse interstitial prominence centrally. There are areas of streaky consolidation within both lung bases, gwmdy-kqnufid-gjeo-left. Trace bilateral pleural effusions. Impression: Hypoinflation with likely mild volume overload. This document has been electronically signed by: Dusty Uribe MD on 12/22/2024 23:21:47
--- NOTE | ~2024-12-22 | CT_ITS ---
EXAMINATION: CT ANGIOGRAM HEAD AND NECK CLINICAL INFORMATION: Recent CVA on MRI 12/18/2024. Right greater than left occipital CVAs. COMPARISON: MRI brain 12/18/2024. CT head 05/15/2024. TECHNIQUE: Noncontrast axial imaging of the head was performed. This was followed by test bolus sequences and head and neck intravenous bolus administration 70 mL of Omnipaque 350. Helical imaging was performed in the axial plane from the aortic arch to the skull vertex. A [address] head was also obtained. The data was processed at the magnetic resonance technologist's workstation for generation of MIP sequences. Angled MIPs and volume rendered reformatted images were also generated at an offline 3D workstation. Stenoses are assessed in accordance with NASCET criteria unless otherwise indicated. This CT examination was performed using dose optimization techniques as appropriate, variously including the following: *Automated exposure control *Adjustment of mA and/or kV according to patient size (this includes techniques or standardized protocols for targeted exams where dose is matched to indication/reason for exam; i.e. extremities or head) *Use of iterative reconstruction technique FINDINGS: NONCONTRAST HEAD CT: There is no evidence of intracranial hemorrhage or extra-axial fluid collection. There is no mass effect, or edema. Evolving infarction involving the right occipital lobe, from recent stroke seen 12/18/2024. Area of encephalomalacia left occipital lobe with ex vacuo dilatation of the left lateral ventricular atrium. Old infarcts in the right caudate body, l and bilateral subinsular regions left greater than right. Ventricles, sulci, and cisterns are otherwise normal in size and configuration for patient age. No hydrocephalus. No midline shift. No new evolving ischemic infarct. Moderate patchy supratentorial white matter hypodensities in keeping with moderate small vessel ischemic changes. Globes and orbital contents image normally. No extracranial soft tissue abnormalities. The paranasal sinuses, mastoid air cells, and tympanic cavities are normally aerated. No suspicious bony abnormalities. NECK CTA: -AORTIC ARCH: Not imaged. Three-vessel branching pattern. -GREAT VESSEL ORIGINS: Widely patent. No stenosis. -RIGHT COMMON CAROTID ARTERY: Normal in course and caliber to the level of the bifurcation. -CERVICAL RIGHT INTERNAL CAROTID ARTERY: Calcific and soft atherosclerotic disease of the carotid bulb and proximal internal carotid artery causing approximate 30% stenosis. -LEFT COMMON CAROTID ARTERY: Normal in course and caliber to the level of the bifurcation. -CERVICAL LEFT INTERNAL CAROTID ARTERY: Calcific and soft atherosclerotic disease of the carotid bulb and proximal internal carotid artery causing approximate 20% stenosis. -CERVICAL RIGHT VERTEBRAL ARTERY: Nondominant. Normal in origin, course and caliber into the skull base. -CERVICAL LEFT VERTEBRAL ARTERY: Mildly dominant. Normal in origin, course and caliber into the skull base. OTHER, SOFT TISSUES: -No lymphadenopathy or mass. No abnormal fluid collection or soft tissue swelling. -Normal thyroid. -Imaged superior mediastinal structures normal. -Imaged lung apices clear. CTA OF THE BRAIN: -INTRACRANIAL INTERNAL CAROTID ARTERIES: Calcific atherosclerotic disease of the intracranial internal carotid arteries without occlusion. There is a moderate grade approximate 60% stenosis of the left cavernous ICA (series 18, image 395). There is an approximate 50% stenosis of the right ICA cavernous segment present (series 18, image 377). -RIGHT ANTERIOR CEREBRAL ARTERY: The A1 segment is diminutive. Normal arborization of the distal segments. -LEFT ANTERIOR CEREBRAL ARTERY: Normal A1 segment. Normal arborization of the distal segments. -ANTERIOR COMMUNICATING ARTERY: Normal. -RIGHT MIDDLE CEREBRAL ARTERY: Normal M1 segment of the MCA without focal stenosis or occlusion. Normal arborization of the distal segments. -LEFT MIDDLE CEREBRAL ARTERY: There is occlusion of the inferior division of the left MCA at the bifurcation (series [id number], image 68; series 18, image 336, 337, and 338 Normal arborization of the distal segments. -RIGHT VERTEBRAL ARTERY V4: Normal in course and caliber. -LEFT VERTEBRAL ARTERY V4: Normal in course and caliber. -BASILAR ARTERY: Normal without focal stenosis or occlusion. Normal appearance of the proximal superior cerebellar arteries. Normal basilar tip. -RIGHT POSTERIOR CEREBRAL ARTERY: Moderate stenosis of the P1 P2 junction (series 18, image 329). The more distal segments show a high-grade stenosis at the P2/P3 junction, and occlusion of a short segment of the right P4 branch. -LEFT POSTERIOR CEREBRAL ARTERY: There is an occlusion at the P1/P2 junction (series 18, image 328). There is mild reconstitution of flow just a centimeter or more distally, likely via collateral and retrograde flow. -POSTERIOR COMMUNICATING ARTERIES: Not well seen bilaterally. Normal opacification of the superior sagittal, straight, transverse, and sigmoid sinuses. No venous thrombosis. CT/CT angio head neck STROKE IMPRESSION: NONCONTRAST HEAD CT: 1. Evolving subacute patchy infarcts of the right occipital lobe. 2. Encephalomalacia in the left [employer] territory consistent with old infarct. 3. No new ischemic territory infarction. 4. No intracranial hemorrhage or mass effect. CTA NECK: 1. There is an approximate 30% stenosis of the right ICA at the origin. 2. There is an approximate 20% stenosis of the left ICA at the origin. 3. There is no vertebral artery stenosis. CTA HEAD: 1. There is an approximate 60% stenosis of the left cavernous ICA. 2. There is an approximate 50% stenosis of the right cavernous ICA. 3. There is an apparent complete occlusion of the left MCA inferior division M2 segment. There is mild reconstitution of flow via collateralization. There is significant oligemia in the left inferior division segment territory. 4. There is an occlusion of the left [employer] at the P1/P2 junction. There is minimal reconstitution of flow distally. 5. There is a moderate grade stenosis of the right [employer] at the P1/P2 junction, and there are high-grade tandem stenoses involving the P2/P3 junction and right P4 branches. This critical result was discussed with Dr Ghosh of [facility] at 4:50 PM, 12/23/2024. It was ascertained that the content and urgency of the report was understood at the time of direct communication. Electronically signed by: Frank Hurt MD 12/23/2024 05:10 PM EDT
--- NOTE | ~2024-12-22 | CT_ITS ---
EXAMINATION: CT CHEST WITHOUT IV CONTRAST INDICATION: Pneumonia, COPD COMPARISON: There are no prior studies available for comparison. TECHNIQUE: Helical CT scan of the chest was performed without intravenous contrast. Coronal and sagittal reformatted images were generated and reviewed. This CT exam was performed with one or more of the following dose reduction techniques: automated exposure control, adjustment of the mA and/or kV according to patient size, use of iterative reconstruction technique. DLP: 368 mGy-cm CHEST: THYROID: The thyroid is unremarkable. LUNGS: There is mild to moderate respiratory motion. There is dependent atelectasis bilaterally. There is linear scarring in the lingula. The lungs are otherwise clear. MEDIASTINUM: There is no mediastinal lymphadenopathy. APRIL: Evaluation of the hilar regions is limited by lack of intravenous contrast material. CARDIOVASCULATURE: The heart is normal in size. There is no pericardial effusion. The thoracic aorta is normal in caliber. DEGREE OF CORONARY CALCIFICATION: moderate PLEURA: There is no pleural effusion. No pneumothorax. MAIN AIRWAYS: The mainstem bronchi and proximal branches are patent. AXILLA: There is no axillary lymphadenopathy. BONES AND SOFT TISSUES: Unremarkable UPPER ABDOMEN: The visualized portions of the liver and adrenals have an unremarkable unenhanced appearance. The patient is status post splenectomy. There is a tiny soft tissue nodule in the left upper quadrant which likely represents a splenule. CT/CT chest wo IV con IMPRESSION: Mild dependent atelectasis. There are no focal airspace opacities to suggest pneumonia. Electronically signed by: Alvin Mehta MD 12/23/2024 03:55 PM EDT
[2024-12-22 20:36] VITALS: BP 134/82; PULSE 132; O2SAT 97
[2024-12-22 20:40] VITALS: BP 127/76; PULSE 118; RESP 20; TEMP 36.6; O2SAT 88; BMI 23.1
--- NOTE | 2024-12-22 20:47 | PC.NURSE ---
While attempting to assess pt. Pt. refusing to answer basic questions. Pt. refusing vitals.
[2024-12-22 20:49] VITALS: BP 127/76; PULSE 120; RESP 16; O2SAT 91
--- OUTSIDE RECORDS SUMMARY | 2024-12-22 21:03 | XMS_ITS | Clinical Summary ---
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 History of tobacco use 05/19/2023 Transaminitis 05/19/2023 Alcohol use 05/19/2023 Hx of gastric ulcer 05/19/2023 Hypertension 05/19/2023 Assessment & Plan (06/10/2024 12:25 PM EST): Controlled with current interventions Health care maintenance 05/19/2023 Encounters Date Type Department Care Team Description 12/18/2024 Results Follow-Up [facility] [address] [place] [phone] Nydia Simon MD MR Brain w/o Contrast 12/18/2024 Telephone [facility] [address] [place] [phone] Cristian Marin MD 12/08/2024 3:00 PM EDT Office Visit [facility] [address] [place] [address] [phone] Nydia Simon MD Screening for colon cancer [...] developmental delay; Illiterate 12/08/2024 Travel 12/07/2024 Telephone [facility] [address] [place] [address] [phone] Nydia Simon MD CHART PREP 12/04/[address] [phone] Nydia Gotti MD 12/01/2024 Patient Outreach [facility] [address] [place] [address] Nydia Simon MD Pre-visit Planning (SDOH will need to be completed in office. ) 09/28/2024 Telephone [facility] [address] [place] [address] Nydia Simon MD from Last 3 Months [...] Description 01/14/2025 10:30 AM EDT Clinical Support [facility] [address] [place] [phone] 02/04/2025 9:30 AM EDT Office Visit [facility] [address] [place] [address] [phone] Nydia Simon MD [address] [place] [phone] Health Maintenance Due Date Last Done Comments CT Colonography 1955 Colonoscopy 1955 Colorectal Cancer Screening 1955 FIT DNA/Cologuard 1955 FIT 1955 FOBT 1955 Sigmoidoscopy 1955 Zoster Vaccines (1 of 2) 2004 COVID-19 Vaccine ( - 2023-2 5 season) 2024 Depression Screening 04/16/2024 04/16/2023, 04/16/2023 SDOH Screening 04/16/2024 04/16/2023 Influenza Vaccine (Season Ended) 2025 05/19/2023 Alcohol/Substance Use Screening 12/08/2025 12/08/2024 Tobacco Screening [...] Procedure Name Priority Date/Time Associated Diagnosis Comments MR BRAIN WO CONTRAST Routine 12/18/2024 9:05 AM EDT Memory loss HEPATITIS C AB W/REFL TO HCV RNA, QN, PCR Routine 04/16/2023 10:38 AM EDT Health care maintenance LIPID PANEL, STANDARD Routine 04/16/2023 10:38 AM EDT Health care maintenance from Last 3 Months or Most Recently Relevant to Health Maintenance Results * MR Brain w/o Contrast (12/18/2024 9:05 AM EDT) Anatomical Region Laterality Modality Brain Magnetic Resonan ce 12/18/2024 9:05 AM EDT Narrative 12/18/2024 9:06 AM EDT ? [facility] ?[address] ?[place] [address] ? Magnetic Resonance Report ? Signed with Addenda ? Patient: Corey,Joao Jr ?MR#: [id number] ?? 0904 ? : 1955 ?Acct:[id number] ? Age/Sex: 69 / M ?ADM Date: 12/18/24 ? Loc: HO.MRI ? Attending Dr: Nydia Eugene MD ? Ordering Physician: Nydia Simon MD ?? Date of Service: 12/18/24 ?? Procedure(s): MR head/brain wo con ?? Accession Number(s): [id number] ? cc: Nydia Simon MD ?ADDENDUM ?? This document has been electronically signed by: Carmen Thurman MD on ?? 12/18/2024 09:05:20 ? ADDENDUM: ?? This report was discussed with Dr. Cristian Marin on December 18, 2024 09:33:00 EDT. ? This document has been electronically signed by: Brianna Wells on ?? 12/18/2024 09:33:41 ? Addendum Dictated By: ?Carmen Thurman MD ? Addendum Signed By: ? <Electronically signed by Carmen Thurman MD in OV> ?12/18/24 0934 ?? Addendum Cosigned By: ? DD/ ? TD/TT: 12/18/24 ? CLINICAL HISTORY: pt with worsening memory loss, hx of alcohol use ? MR Brain without gadolinium ? Comparison: CT/UT/SR - CT HEAD/BRAIN WO IV CON - 05/15/24 12:20 EDT ? Findings: ?? Encephalomalacia within the right posterior temporal and occipital lobes. ?? Multifocal areas of restricted diffusion within the bilateral occipital ?? lobes. This is best seen medially in the right occipital lobe on images 12 ?? through 15 of series 6 and within the left occipital lobe on image 10 and ?? 11 of series 6. ?? Tiny focus of restricted diffusion within the right thalamus image 15 ?? series 6. ?? Mild global volume loss with subcortical and periventricular T2 ?? hyperintensities suggesting chronic microangiopathy. Old bilateral basal ?? ganglia lacunar infarcts. ?? Small microhemorrhage in the right occipital lobe image 25 series 10. ? No intra-axial mass or acute appearing hemorrhage. ?? No midline shift. No hydrocephalus. ?? Major vascular flow voids are intact. ? Orbital contents are unremarkable. ?? The sinuses and mastoid air cells are predominantly clear. ?? No focal bone lesion. ? IMPRESSION: ?? Left temporo-occipital encephalomalacia. Focal restricted diffusion within ?? the bilateral occipital lobe consistent with acute ischemia as described ?? above. ?? Punctate focus of restricted diffusion within the right thalamus. ?? Changes of chronic microangiopathy with bilateral old lacunar infarcts of ?? the basal ganglia. Global volume loss. ? This document has been electronically signed by: Carmen Thurman MD on ?? 12/18/2024 09:05:20 ? Dictated By: ?Carmen Thurman MD ? Signed By: ?<Electronically signed by Carmen Thurman MD in OV> ?12/18/24904 ? DD/ 4 ? TD/TT: 12/18/24904 ? Credit Historian: ? Procedure Note Donleigh annter, Image - 12/18/[address] [address] Magnetic Resonance Report Signed with Eliud Patient: Joao Nicole [facility]#: [id number] 0904 : 4Acct:[id number] Age/Sex: 69 / MADM Date: 12/18/24 Loc: HO.MRI Attending Dr: Nydia Eugene MD Ordering Physician: Nydia Simon MD Date of Service: 12/18/24 Procedure(s): MR head/brain wo con Accession Number(s): [id number] cc: Nydia Simon MD ADDENDUM This document has been electronically signed by: Carmen Thurman MD on 12/18/2024 09:05:20 ADDENDUM: This report was discussed with Dr. Cristian Marin on December 18, 2024 09:33:00 EDT. This document has been electronically signed by: Brianna Wells on 12/18/2024 09:33:41 Addendum Dictated By: Carmen Thurman MD Addendum Signed By: <Electronically signed by Carmen Thurman MD in OV> 12/18/24933 Addendum Cosigned By: DD/ TD/TT: 12/18/24 CLINICAL HISTORY: pt with worsening memory loss, hx of alcohol use MR Brain without gadolinium Comparison: CT/UT/SR - CT HEAD/BRAIN WO IV CON - 05/15/24 12:20 EDT Findings: Encephalomalacia within the right posterior temporal and occipital lobes. Multifocal areas of restricted diffusion within the bilateral occipital lobes. This is best seen medially in the right occipital lobe on images 12 through 15 of series 6 and within the left occipital lobe on image 10 and 11 of series 6. Tiny focus of restricted diffusion within the right thalamus image 15 series 6. Mild global volume loss with subcortical and periventricular T2 hyperintensities suggesting chronic microangiopathy. Old bilateral basal ganglia lacunar infarcts. Small microhemorrhage in the right occipital lobe image 25 series 10. No intra-axial mass or acute appearing hemorrhage. No midline shift. No hydrocephalus. Major vascular flow voids are intact. Orbital contents are unremarkable. The sinuses and mastoid air cells are predominantly clear. No focal bone lesion. IMPRESSION: Left temporo-occipital encephalomalacia. Focal restricted diffusion within the bilateral occipital lobe consistent with acute ischemia as described above. Punctate focus of restricted diffusion within the right thalamus. Changes of chronic microangiopathy with bilateral old lacunar infarcts of the basal ganglia. Global volume loss. This document has been electronically signed by: Carmen Thurman MD on 12/18/2024 09:05:20 Dictated By: Carmen Thurman MD Signed By: <Electronically signed by Carmen Thurman MD in OV> 12/18/24904 DD/ 4 TD/TT: 12/18/24904 Credit Historian: us Nydia Eugene MD IMG MRI PROCEDURE S Edited Result - Final * Hepatitis C Antibody with Reflex to HCV, RNA, Quantitative, Real-Time PCR (04/16/2023 10:38 AM EDT) Hepatitis C Antibody Nonreactive Nonreactive [facility] Comment:Antibodies to HCV no t detected; does not exclude early acuteHCV infection. Blood Venous blood specimen / Unknown 04/16/2023 10:38 AM EDT 04/16/2023 1:07 PM EDT us Nydia Eugene MD LAB BLOOD ORDERAB LES Final Result [facility] [address] [place] [phone] * (ABNORMAL) Lipid Panel, Standard (04/16/2023 10:38 AM EDT) Triglycerides 63 <150 mg/dL [facility] Comment:Desirable Triglyceri de: less than 150 mg/dLBorderline High Triglyceride 150-199 mg/dLHigh Triglyceride: 200-499 mg/dLVery High Triglyceride: greater than or equal to 5OO mg/dL Cholesterol 183 <200 mg/dL [facility] Comment:Desirable Cholestero l: less than 200 mg/dLBorderline High Cholesterol: 200-239 mg/dLHigh Cholesterol: greater than 239 mg/dL LDL Cholesterol Calculated 116(H) <100 mg/dL [facility] Comment:Desirable LDL: less than 100 mg/dLNear Optimal/Above Optimal LDL: 110- 129 mg/dLBorderline High LDL: 130-159 mg/dLHigh LDL: 160-189 mg/dLVery High LDL: greater than or equal to 190 mg/dL HDL Cholesterol 55 >40 mg/dL [facility] Comment:Desirable HDL: great er than 40 mg/dL Note: This HDL assay may give artificially low results in patients with liver disease. Blood Venous blood specimen / Unknown 04/16/2023 10:38 AM EDT 04/16/2023 1:07 PM EDT us Nydia Eugene MD LAB BLOOD ORDERAB LES Final Result [facility] [address], [place] [phone] from Last 3 Months or Most Recently Relevant to Health Maintenance [place] [address] [place] [address] STANDARD MEDICARE Care Teams International Marketing Executive Relationship Specialty Start Date End Date Nydia Simon MD [address] [place] [address] PCP - General Internal Medicine 04/11/23 [employer] 05/27/24
--- NOTE | 2024-12-22 21:06 | PC.NURSE ---
Pt. oxygen saturation was 88% ra, applied oxygen 2 L/NC. Pt. oxygen saturation was 95%.
[2024-12-22 21:34] VITALS: BP 104/68; PULSE 109; RESP 18; TEMP 37.8; O2SAT 93
--- NOTE | 2024-12-22 21:49 | ECG_ITS ---
Test Reason : ETOH Blood Pressure : */* mmHG Vent. Rate : 99 BPM Atrial Rate : 99 BPM P-R Int : 206 ms QRS Dur : 84 ms QT Int : 370 ms P-R-T Axes : 36 22 38 degrees QTcB Int : 474 ms Normal sinus rhythm Normal ECG When compared with ECG of 15-May-2024 10:26, Nonspecific T wave abnormality no longer evident in Anterior leads T wave amplitude has decreased in Lateral leads Referred By: Adali Louise Electronically Signed By: JUAN WRAD
--- NOTE | 2024-12-22 21:50 | ED.GENADULT ---
HPI - General Adult General Chief complaint: General Medical Stated complaint: COMBATIVE, DEMENTIA, ALTERED PER EMS Time Seen by Provider: 12/22/24 21:48 Source: patient and family Limitations: other (dementia ) History of Present Illness ED Provider: Adali Louise PA-C HPI narrative: 69-year-old male with a history of dementia, COPD, alcohol abuse with a alcohol withdrawal delirium and agitation, BPH, who presents with his son for aggression and agitation at home. PD had to be called to the home secondary to the patient's behaviors. The son states that his father no longer consumes alcohol. He also no longer uses tobacco. History limited as the patient is currently uncooperative and not allowing us to assess him. Related Data Previous Rx's ?Medication ?Instructions ?Recorded multivitamin (Daily-Gricelda tablet) 1 tab PO DAILY #90 tabs 05/19/24 tamsulosin 0.4 mg capsule 0.4 mg PO DAILY #90 caps 05/19/24 thiamine mononitrate (vit B1) 100 100 mg PO DAILY #90 tabs 05/19/24 mg tablet Allergies Allergy/AdvReac Type Severity Reaction Status Date / Time No Known Allergies Allergy Verified 12/22/24 21:04 Review of Systems Review of Systems: Unable to obtain secondary to dementia Yes all other systems are reviewed and are negative PMFSH Past Medical History Attestation statement: The following information was validated with the patient. Medical History (Updated 12/23/24 @ 03:26 by Farheen Toledo PA-C) Dementia Alcohol use disorder HTN (hypertension) Surgical History (System 12/15/24 @ 14:38 by Gini Zamorano) Hx of abdominal surgery Social History Social History (System 12/15/24 @ 14:38 by Gini Zamorano) Household Members: Unknown / Unable to assess Unable to assess alcohol history related to: Refusing to respond Alcohol intake: current Alcohol intake frequency: 0-2 drinks per day Alcohol type: beer Comment: sitter at bedside Patient Tobacco Use Status: Never used Tobacco Smoked in Last 30 Days: No Use of substances other than those prescribed or required for medical reasons: Refusing to respond Substance Use Type: Marijuana Advance Directives: Yes Advance Directives on File: Yes Advance Directives Date on File: 05/20/24 Do you have a plan to hurt others: No Plan Physical Exam ED Vital Signs: Vital Signs - 24 hr 12/22/24 20:40 12/22/24 20:49 12/22/24 21:34 Temperature 97.9 F 100.1 F Pulse Rate 118 H 120 H 109 H Respiratory Rate 20 16 18 Blood Pressure 127/76 127/76 104/68 Pulse Oximetry 88 L 91 L 93 Oxygen Delivery Method Nasal Cannula Nasal Cannula Oxygen Flow Rate 2 2 12/22/24 22:34 12/22/24 23:00 12/23/24 01:36 Temperature 98.1 F Pulse Rate 88 103 H Respiratory Rate 18 Blood Pressure 108/63 Pulse Oximetry Oxygen Delivery Method Oxygen Flow Rate BMI result Body Mass Index 23.1 Const Other: Awake Orientation/consciousness: oriented to person Resp Other: Rhonchorous on exam with the expiratory wheezes Cardio Other: Normal peripheral perfusion Skin Other: Warm dry no rash Neuro General: oriented to person, gait normal, no focal motor deficits and CN's II-XI intact bilaterally Psych Other: Uncooperative, hostile and belligerent at times, however is redirectable Course Course Course Narrative: 2218 pm on 12/22 a sepsis focused exam was performed, blood cultures, lactic, finally obtained once we could de- escalate the Pt's behaviors........giving IV fluid, Tylenol, empiric antibiotics. lactic 1.1 Reevaluation(s) Reevaluation #1: Speaking with the patient's healthcare proxy Nelsy, who was also his sister. I have verified that the patient is a full code, that if we have to medicate the patient in order to perform a medical assessment, and/or maintain a standard of safety for himself and staff, that we are able to do so. Time: 22:12 Reevaluation #2: Becoming hostile, belligerent, combative, having to medicate to maintain the safety of the patient and staff, we will give Haldol and Versed Time: 01:47 Medications Administered Discontinued Medications Generic Name Dose Route Start Last Admin Trade Name Freq PRN Reason Stop Dose Admin Albuterol Sulfate 7.5 mg/ 10 mg 12/22/24 22:28 12/22/24 22:34 Albuterol Sulfate 2.5 mg INHALE 12/22/24 22:29 10 mg ONCE ONE Administration Ceftriaxone Sodium 2 gm 12/22/24 22:18 12/22/24 22:31 Ceftriaxone Sodium 2 Gm Vial IVPUSH 12/22/24 22:19 2 gm ONCE ONE Administration Haloperidol Lactate 5 mg 12/23/24 01:47 12/23/24 01:55 Haloperidol Lactate 5 Mg/Ml Vial IM 12/23/24 01:48 5 mg STAT STA Administration Acetaminophen 1,000 mg in 100 mls @ 400 mls/hr 12/22/24 21:51 12/22/24 22:45 Ofirmev IV 12/22/24 22:05 Infused ONCE ONE Infusion Sodium Chloride 2,190 mls @ 2,190 mls/hr 12/22/24 21:51 12/23/24 00:01 Ns 30 ml/kg infuse over 1 hr (2190 ml) 12/22/24 22:50 Infused IV Infusion .Q1H STA Magnesium Sulfate 2 gm in 50 mls @ 25 mls/hr 12/22/24 22:18 12/22/24 22:56 Magnesium Sulfate/H2o IV 12/23/24 00:17 Infused ONCE ONE Infusion Azithromycin 500 mg/ Sodium 250 mls @ 125 mls/hr 12/22/24 22:18 12/23/24 01:30 Chloride IV 12/23/24 00:17 Infused ONCE ONE Infusion Methylprednisolone Sodium Succinate 125 mg 12/22/24 22:18 12/22/24 23:02 Methylprednisolone Sod Succ 125 Mg/2 Ml Vial IVPUSH 12/22/24 22:19 Not Given ONCE ONE Midazolam HCl 2 mg 12/23/24 01:47 12/23/24 01:55 Midazolam Hcl 2 Mg/2 Ml Vial IM 12/23/24 01:48 2 mg ONCE ONE Administration Medical Decision Making Medical Decision Making MDM Narrative: 69-year-old male with a history of dementia, COPD, HTN, alcohol abuse with a alcohol withdrawal delirium and agitation, BPH, who presents with his son for aggression and agitation at home. PD had to be called to the home secondary to the patient's behaviors. The son states that his father no longer consumes alcohol. He also no longer uses tobacco. History limited as the patient is currently uncooperative and not allowing us to assess him. Problem: Dementia, COPD, hypertension History: Per patient's son I have considered the following differential diagnoses: Sepsis, COPD exacerbation, pneumonia, bronchitis, UTI Plan: Patient incidentally found to be febrile, he is also newly hypoxic. He was 88% on room air on arrival, he does not use supplemental oxygen at home, he is now on 2 L nasal cannula. Initiating sepsis protocol. Also treating for concurrent COPD exacerbation, giving updraft, steroid and magnesium. We will screen a urinalysis and a chest x-ray as well. And a viral panel. I have independently reviewed the following tests: Labs: Leukocytosis noted, not anemic, thrombocytosis that is chronic, no electrolyte abnormality, lactic 1.1, viral panel negative, urine negative EKG: Normal sinus rhythm, rate of 99, no ischemic changes no ectopy Chest x-ray:Lungs are hypoinflated. Cardiac silhouette is at the upper limits of normal for size. Diffuse interstitial prominence centrally. There are areas of streaky consolidation within both lung bases, uvdzo-vfjmkzy-epwm-left. Trace bilateral pleural effusions. Impression: Hypoinflation with likely mild volume overload. Lab Data 12/22/24 22:19 12/22/24 22:19 Labs: Lab Results 12/22/24 12/22/24 12/23/24 Range/Units 22:19 22:54 00:02 WBC 12.0 H (4.8-10.8) X10*3/uL RBC 4.72 (4.60-5.80) X10*6/uL Hgb 14.3 (14.0-18.0) g/dl Hct 41.3 L (42.0-52.0) % MCV 87.5 (80.0-98.0) fL MCH 30.3 (27.0-33.0) pg MCHC 34.6 (31.0-36.0) g/dl RDW 14.7 (11.0-16.0) % Plt Count 427 H (160-400) X10*3/uL MPV 9.7 (9.4-12.4) fL Immature Gran % (Auto) 0.3 (0.0-0.4) % Neut % (Auto) 64.5 (45-73) % Lymph % (Auto) 22.4 (20-40) % Smyth % (Auto) 9.8 (2-11) % Eos % (Auto) 2.0 (0-4) % Baso % (Auto) 1.0 (0-2) % Lymph # (Auto) 2.7 (1.2-4.9) X10*3/uL Smyth # (Auto) 1.2 (0.1-1.2) X10*3/uL Eos # (Auto) 0.2 (0.0-0.4) X10*3/uL Baso # (Auto) 0.1 (0.0-0.2) X10*3/uL Abs Immat Gran (auto) 0.03 (0.00-0.03) X10*3/uL Absolute Neuts (auto) 7.8 (2.0-8.3) x10*3/uL Absolute Nucleated RBC 0.000 (0.0-0.012) X10*3/uL Nucleated RBC % (auto) 0.0 (0.0-0.2) /100WBC D-Dimer High Sensitivty 159 NG/ML Sodium 142 (135-145) mmol/L Potassium 3.7 (3.3-5.1) mmol/L Chloride 110 H (96-108) mmol/L Carbon Dioxide 25 (22-29) mmol/L Anion Gap 11 L (12-20) BUN 13 (9-16) mg/dL Creatinine 1.02 (0.5-1.4) mg/dL Estim Creat Clear Calc 69.5 Estimated GFR > 60 Random Glucose 104 (60-115) mg/dL Lactic Acid 1.1 (0.5-2.0) mmol/L Calcium 9.2 (8.4-10.2) mg/dL Magnesium 2.1 (1.6-2.6) mg/dL Total Bilirubin 0.8 (0.0-1.0) mg/dL AST 58 H (5-37) U/L ALT 22 (0-40) U/L Alkaline Phosphatase 47 (39-117) U/L Troponin I High Sens 8.5 (<3.5-35.0) ng/L Total Protein 7.2 (6.5-8.0) g/dL Albumin 4.0 (3.5-5.0) g/dL Ethyl Alcohol < 10 mg/dL Influenza Type A (PCR) NEGATIVE (Negative) Influenza Type B (PCR) NEGATIVE (Negative) RSV RNA Qual (PCR) NEGATIVE (Negative) SARS-CoV-2 RNA (RT-PCR) NEGATIVE (Negative) Discharge Plan Discharge Clinical Impression: Hypoxia, COPD exacerbation, Bronchitis Patient Disposition: Admitted As Inpatient
[2024-12-22 22:26] LABS: MANUAL DIFF FLAG NO
[2024-12-22 22:28] LABS: Basophils Absolute Auto 0.1 X10*3/uL (0.0-0.2); Eosinophils Absolute Auto 0.2 X10*3/uL (0.0-0.4); Hematocrit 41.3 % (42.0-52.0); Hemoglobin 14.3 g/dl (14.0-18.0); Imm Gran Abs Auto 0.03 X10*3/uL (0.00-0.03); Imm Gran Pct Auto 0.3 % (0.0-0.4); Lymphocytes Absolute Auto 2.7 X10*3/uL (1.2-4.9); Lymphocytes Percent Auto 22.4 % (20-40); Mean Corpuscular HGB Conc 34.6 g/dl (31.0-36.0); Mean Corpuscular Hemoglobin 30.3 pg (27.0-33.0); Mean Corpuscular Volume 87.5 fL (80.0-98.0); Mean Platelet Volume 9.7 fL (9.4-12.4); Monocytes Absolute Auto 1.2 X10*3/uL (0.1-1.2); Monocytes Percent Auto 9.8 % (2-11); Neutrophils Absolute Auto 7.8 x10*3/uL (2.0-8.3); Neutrophils Percent Auto 64.5 % (45-73); Platelet Count 427 X10*3/uL (160-400); Red Blood Count 4.72 X10*6/uL (4.60-5.80); Red Cell Distribution Width 14.7 % (11.0-16.0)
[2024-12-22] MEDS: 0.9 % Sodium Chloride 2,190 ML 2190 ML IV (22:30)
[2024-12-22] MEDS: Acetaminophen 1,000 MG/100 ML PIGGYBACK 400 MG IV (22:30)
[2024-12-22] MEDS: cefTRIAXone sodium 2 GM VIAL IVPUSH (22:31)
[2024-12-22 22:34] VITALS: PULSE 88; RESP 18; O2SAT 93
[2024-12-22] MEDS: Albuterol Sulfate 7.5 MG, Albuterol Sulfate (0.083%) 2.5 MG 10 MG INHALE (22:34)
[2024-12-22] MEDS: Magnesium Sulfate/H2O 2 GM/50 ML PIGGYBACK IV (22:36)
[2024-12-22 22:42] LABS: Lactic Acid 1.1 mmol/L (0.5-2.0)
[2024-12-22 22:44] LABS: Alanine Aminotransferase 22 U/L (0-40); Alkaline Phosphatase 47 U/L (39-117); Anion Gap 11 (12-20); Aspartate Amino Transferase 58 U/L (5-37); Bilirubin Total 0.8 mg/dL (0.0-1.0); Blood Urea Nitrogen 13 mg/dL (9-16); Calcium 9.2 mg/dL (8.4-10.2); Carbon Dioxide 25 mmol/L (22-29); Chloride 110 mmol/L (96-108); Creatinine Clr Calc Pharmacy 69.5; Estimated Glomerular Filt Rate > 60; Ethanol < 10 mg/dL; Glucose Random 104 mg/dL (60-115); Magnesium 2.1 mg/dL (1.6-2.6); Potassium 3.7 mmol/L (3.3-5.1); Sodium 142 mmol/L (135-145); Total Protein 7.2 g/dL (6.5-8.0)
[2024-12-22 22:51] LABS: Troponin-I High Sensitivity 8.5 ng/L (<3.5-35.0)
--- NOTE | 2024-12-22 22:56 | PC.NURSE ---
mag given over 20 min per marielena contreras verbal.
[2024-12-22 23:00] VITALS: TEMP 36.7
[2024-12-22] MEDS: Azithromycin 500 MG in 0.9 % Sodium Chloride 250 ML 125 MG IV (23:14)
--- NOTE | 2024-12-22 23:34 | PC.NURSE ---
late entry. this rn assumed care of pt 2129. pt was sleeping in stretcher with son at bedside. son requested that pt not be medically sedated unless absolutely necessary. concerned for decomp over past 2 days, previously seen at [facility] and d/c home. diagnosed hx dementia. concern that pt has been increasingly aggressive to family, not ambulating/speaking at baseline, increased confusion, new urinary incontinence. pt was calm and cooperative with changing into hospital attire, placed on shelter monitor and vitals obtained. pt became verbally aggressive while obtaining rectal temp but verbally reassured. Vika MOSES made aware of findings above. pt was cooperative with obtaining iv and labs. pt medicated per sep. lung sounds wheezing/rhonci. 88% on RA, on 2L NC with improvement to 93%. resp even and unlabored. pt received breathing tx with improvement. pt is more alert and responsive at this time. requested to sit up. states he understands he is in the hospital and verbalizes understanding education on plan of care. pt states he lives at home with his 2 cats, verbalizes he wants to stay in the hospital to feel better to take care of them. denies pain at this time. watching tv. call edwards within reach.
[2024-12-22 23:36] LABS: Influenza A PCR NEGATIVE (Negative); Influenza B PCR NEGATIVE (Negative); Resp Syncy Virus RNA Qual PCR NEGATIVE (Negative); SARS COV2 PCR INHOUSE NEGATIVE (Negative)
[2024-12-23] VITALS (8 sets, daily range): BP systolic 99–142; BP diastolic 56–87; PULSE 65–103; RESP 16–18; TEMP 36.4–36.8; O2SAT 94–98
[2024-12-23 00:19] LABS: D Dimer High Sensitivity 159 NG/ML
[2024-12-23] MEDS: Haloperidol Lactate 5 MG/ML VIAL IM (01:55)
[2024-12-23] MEDS: Midazolam HCl 2 MG/2 ML VIAL IM (01:55)
--- NOTE | 2024-12-23 01:55 | PC.NURSE ---
pt had been verbally redirectable, at time of being medicated pt became verbally and physically aggressive, yelling and cussing at staff, ripped of cardiac leads and attempted to rip out ivs. pt had to be physically held down per Vika MOSES verbal order and meds given via IM. pt refused vitals at time of medication and stated I'll break that shit when attempted to place cardiac leads back on his chest.
--- NOTE | 2024-12-23 03:13 | PM.IMHP ---
History of Present Illness Date of Service: 12/23/24 Attending physician on admission: Tano Posey Chief Complaint: aggitation Patient is a 69-year-old male with a past medical history significant for dementia with education and delirium, COPD unspecified, alcohol use disorder with history of alcohol withdrawal, and BPH, who presented to the ED due to aggression and agitation at home requiring his son to call PD. His son denies him consuming any alcohol recently. The patient's history is difficult to obtain as the patient is uncooperative and the son does not know much about his history and had to leave as he states that his presence worsens the patient's agitation. Review of Systems Review of Systems: Yes Unobtainable due to mental status PMFSH Medical History (Updated 12/23/24 @ 03:26 by Farheen Toledo PA-C) Dementia Alcohol use disorder HTN (hypertension) Surgical History (System 12/15/24 @ 14:38 by Gini Zamorano) Hx of abdominal surgery Social History (System 12/15/24 @ 14:38 by Gini Zamorano) Household Members: Unknown / Unable to assess Unable to assess alcohol history related to: Refusing to respond Alcohol intake: current Alcohol intake frequency: 0-2 drinks per day Alcohol type: beer Comment: sitter at bedside Patient Tobacco Use Status: Never used Tobacco Smoked in Last 30 Days: No Use of substances other than those prescribed or required for medical reasons: Refusing to respond Substance Use Type: Marijuana Advance Directives: Yes Advance Directives on File: Yes Advance Directives Date on File: 05/20/24 Do you have a plan to hurt others: No Plan Narrative: No recent alcohol although history of alcohol use disorder. No smoking. No recent drug use. Meds Allergies Allergy/AdvReac Type Severity Reaction Status Date / Time No Known Allergies Allergy Verified 12/22/24 21:04 Physical Exam Vital Signs and Narrative: Vital Signs: Last Vital Signs Temp 98.1 F 12/22/24 23:00 Pulse 103 H 12/23/24 01:36 Resp 18 12/22/24 22:34 BP 108/63 12/23/24 01:36 Pulse Ox 93 12/22/24 21:34 O2 Del Method Nasal Cannula 12/22/24 21:34 O2 Flow Rate 2 12/22/24 21:34 BMI result Body Mass Index 23.1 Want to go to the patient's room to examine him he was agitated and failing in the bed, uncooperative and received 5 mg Haldol IM. The patient remained a week after the injection although he was not cooperative with exam or history. He would not allow me to auscultate or touch him at all for the exam. He answered very minimal questions but reports no recent alcohol use. General: Alert, no acute distress Resp: Patient refused. does not appear to have any respiratory distress CVS: patient refused GI: patient refused Skin: dry. Neuro: patient refused. Gross motor intact bilaterally throughout Extremities: No obvious lower extremity edema Psych: agitated and uncooperative Results Labs 12/22/24 22:19 12/22/24 22:19 Labs: Laboratory Results - last 24 hr 12/22/24 12/22/24 12/23/24 22:19 22:54 00:02 MCV 87.5 MCH 30.3 MCHC 34.6 RDW 14.7 Plt Count 427 H MPV 9.7 Immature Gran % (Auto) 0.3 Neut % (Auto) 64.5 Lymph % (Auto) 22.4 Leslie % (Auto) 9.8 Eos % (Auto) 2.0 Baso % (Auto) 1.0 Lymph # (Auto) 2.7 Leslie # (Auto) 1.2 Eos # (Auto) 0.2 Baso # (Auto) 0.1 Abs Immat Gran (auto) 0.03 Absolute Neuts (auto) 7.8 Absolute Nucleated RBC 0.000 Nucleated RBC % (auto) 0.0 D-Dimer High Sensitivty 159 Anion Gap 11 L Estim Creat Clear Calc 69.5 Estimated GFR > 60 Random Glucose 104 Lactic Acid 1.1 Calcium 9.2 Magnesium 2.1 Total Bilirubin 0.8 AST 58 H ALT 22 Alkaline Phosphatase 47 Troponin I High Sens 8.5 Total Protein 7.2 Albumin 4.0 Ethyl Alcohol < 10 Influenza Type A (PCR) NEGATIVE Influenza Type B (PCR) NEGATIVE RSV RNA Qual (PCR) NEGATIVE SARS-CoV-2 RNA (RT-PCR) NEGATIVE Assessment and Plan (1) Acute metabolic encephalopathy: Status: Acute (2) Acute hypoxic respiratory failure: Status: Acute (3) Sepsis: Status: Acute (4) COPD exacerbation: Status: Acute (5) Bronchitis: Status: Acute Plan Patient is a 69-year-old male with a past medical history significant for dementia with agitation and delirium, COPD unspecified, alcohol use disorder with history of alcohol withdrawal, and BPH, who presented to the ED due to aggression and agitation at home requiring his son to call PD. acute metabolic encephalopathy and sepsis with acute hypoxic respiratory failure secondary to COPD exacerbation/bronchitis - WBC 12, tachycardic, lactic acid normal, blood cultures x2 pending, not severe sepsis - chest x-ray negative - COVID/flu/RSV negative - patient given 30 cc/kg fluid bolus, ceftriaxone, azithromycin, Solu-Medrol 125 mg, magnesium and albuterol in ED - continue Solu-Medrol 60 mg b.i.d., DuoNebs q.4h p.r.n., switch to doxycycline bid - follow CBC and BMP - titrate oxygen as needed alcohol use disorder - patient and patient's son both deny any recent alcohol use - alcohol level undetectable BPH - continue home meds full code VTE prophylaxis: Lovenox patient with acute metabolic encephalopathy and acute hypoxic respiratory failure with sepsis secondary to COPD exacerbation/bronchitis, requiring admission for at least 2 midnights stay for IV antibiotics and monitoring. Quality Stroke Does the patient have a stroke diagnosis?: No VTE Prior VTE?: No VTE Risk Level:: Medical - moderate - high VTE Device Contraindication: Treatment Not Indicated VTE Drug Contraindication: N/A - Med Ordered
--- NOTE | 2024-12-23 03:30 | PC.NURSE ---
pt continues to refuse vitals. Farheen MOSES aware.
[2024-12-23 05:34] LABS: MANUAL DIFF FLAG NO
[2024-12-23 05:41] LABS: Basophils Absolute Auto 0.1 X10*3/uL (0.0-0.2); Eosinophils Absolute Auto 0.3 X10*3/uL (0.0-0.4); Eosinophils Percent Auto 2.7 % (0-4); Hematocrit 35.8 % (42.0-52.0); Hemoglobin 12.3 g/dl (14.0-18.0); Imm Gran Abs Auto 0.03 X10*3/uL (0.00-0.03); Imm Gran Pct Auto 0.3 % (0.0-0.4); Lymphocytes Absolute Auto 3.8 X10*3/uL (1.2-4.9); Lymphocytes Percent Auto 33.2 % (20-40); Mean Corpuscular HGB Conc 34.4 g/dl (31.0-36.0); Mean Corpuscular Hemoglobin 30.6 pg (27.0-33.0); Mean Corpuscular Volume 89.1 fL (80.0-98.0); Monocytes Absolute Auto 1.2 X10*3/uL (0.1-1.2); Monocytes Percent Auto 10.7 % (2-11); Neutrophils Absolute Auto 5.9 x10*3/uL (2.0-8.3); Neutrophils Percent Auto 52.1 % (45-73); Platelet Count 386 X10*3/uL (160-400); Red Blood Count 4.02 X10*6/uL (4.60-5.80); White Blood Count 11.3 X10*3/uL (4.8-10.8)
[2024-12-23 05:51] LABS: Anion Gap 12 (12-20); Blood Urea Nitrogen 11 mg/dL (9-16); Calcium 8.4 mg/dL (8.4-10.2); Carbon Dioxide 21 mmol/L (22-29); Chloride 113 mmol/L (96-108); Creatinine Clr Calc Pharmacy 87.6; Estimated Glomerular Filt Rate > 60; Glucose Random 95 mg/dL (60-115); Sodium 142 mmol/L (135-145)
[2024-12-23 08:05] LABS: B Type Natriuretic Peptide < 10 pg/mL (<100)
[2024-12-23 08:56] LABS: Procalcitonin 0.09 ng/mL
--- NOTE | 2024-12-23 09:17 | PHA.MEDREC ---
Pharmacy Consult ? Medication Reconciliation Pharmacy has completed the medication reconciliation. Spoke to patient's healthcareproxy/sister Nelsy Moran [phone] in regards to patient's med list. Per Nelsy, patient did not take any medications in the past. He was admitted to [facility] from Friday12/18/24 to Friday12/22/24. New rx of atorvastatin, divalproex, clopidogrel and daily-janice were prescribed and picked up by Nelsy on 12/22/24 but patient hasn't started taken them yet. Spoke to Dr. Ghosh about the situation and he wants those meds to be added in patient's home med list.
[2024-12-23] MEDS: Aspirin 81 MG TAB.CHEW PO (10:20)
[2024-12-23] MEDS: 0.9 % Sodium Chloride Flush 3 ML SYRINGE IVFLUSH ×2 (10:20→20:47)
[2024-12-23] MEDS: Atorvastatin Calcium 40 MG TABLET PO (10:21)
[2024-12-23] MEDS: Multivitamin TABLET 1 TAB PO (10:21)
[2024-12-23] MEDS: Thiamine HCL 100 MG TABLET PO (10:21)
[2024-12-23] MEDS: Doxycycline Hyclate 100 MG in 0.9 % Sodium Chloride 250 ML 166.67 MG IV ×2 (10:21→20:45)
[2024-12-23] MEDS: Enoxaparin Sodium 40 MG/0.4 ML SYRINGE SUBCUT (10:21)
--- NOTE | 2024-12-23 10:36 | PC.NURSE ---
Dr. Rapp to bedside for evaluation. Patient took medications as ordered without issue and returned to sleep shortly afterwards. Care ongoing by this RN.
--- NOTE | 2024-12-23 10:57 | PM.NEUROCN ---
History of Present Illness Data of Consult Service Date: 12/23/24 Primary Care Provider: Unknown Physician HPI Reason for consult: Encephalopathy 69 years old man with past medical history of exposure to alcohol, diagnosis of multifactorial dementia, and admission here in 2013 with encephalopathy, positive syphilis serology, and lumbar puncture revealing 24 WBCs with normal CSF protein came to hospital with behavioral symptoms of aggression and agitation. Last night he was sedated for behavioral reasons. This morning he was calm. There was no evidence of seizure-like episode. He was not febrile. Review of Systems Review of Systems: Could not be done with him. [facility] Past Medical History Medical History (Updated 12/23/24 @ 11:01 by Bebeto Rapp MD) Dementia Alcohol use disorder HTN (hypertension) Surgical History Surgical History (System 12/15/24 @ 14:38 by Gini Zamorano) Hx of abdominal surgery Social History Social History (System 12/15/24 @ 14:38 by Gini Zamorano) Household Members: Unknown / Unable to assess Unable to assess alcohol history related to: Refusing to respond Alcohol intake: current Alcohol intake frequency: 0-2 drinks per day Alcohol type: beer Comment: sitter at bedside Patient Tobacco Use Status: Never used Tobacco Smoked in Last 30 Days: No Use of substances other than those prescribed or required for medical reasons: Refusing to respond Substance Use Type: Marijuana Advance Directives: Yes Advance Directives on File: Yes Advance Directives Date on File: 05/20/24 Do you have a plan to hurt others: No Plan Meds Allergies Allergy/AdvReac Type Severity Reaction Status Date / Time No Known Allergies Allergy Verified 12/22/24 21:04 Active Medications: Current Medications Acetaminophen (Acetaminophen 325 Mg Tablet) 975 mg PO Q6H PRN PRN Reason: Pain, Mild 1-3,fever,headache Albuterol/Ipratropium (Albuterol/Iprat 2.5/0.5mg 3 Ml Ampul.Neb) 3 ml INHALE Q4H PRN PRN Reason: Shortness of Breath/Wheezing Aspirin (Aspirin 81 Mg Tab.Chew) 81 mg PO DAILY [facility] Last Admin: 12/23/24 10:20 Dose: 81 mg Atorvastatin Calcium (Atorvastatin Calcium 40 Mg Tablet) 40 mg PO DAILY [facility] Last Admin: 12/23/24 10:21 Dose: 40 mg Calcium Carbonate (Calcium Carbonate 750 Mg Tab.Chew) 750 mg PO Q4H PRN PRN Reason: Heartburn Enoxaparin Sodium (Enoxaparin Sodium 40 Mg/0.4 Ml Syringe) 40 mg SUBCUT Q24H [facility] Last Admin: 12/23/24 10:21 Dose: 40 mg Doxycycline Hyclate 100 mg/ (Sodium Chloride) 250 mls @ 166.67 mls/hr IV BID [facility] Last Admin: 12/23/24 10:21 Dose: 166.67 mls/hr Magnesium Hydroxide (Milk Of Magnesia 30 Ml Oral.Susp) 30 ml PO DAILY PRN PRN Reason: Constipation Melatonin (Melatonin 3 Mg Tablet) 6 mg PO BEDTIME PRN PRN Reason: Insomnia Methylprednisolone Sodium Succinate (Methylprednisolone Sod Succ 125 Mg Vial) 40 mg IVPUSH DAILY [facility] Last Admin: 12/23/24 10:21 Dose: 40 mg Multivitamins/Vitamin C (Multivitamin Tablet) 1 tab PO DAILY [facility] Last Admin: 12/23/24 10:21 Dose: 1 tab Ondansetron HCl (Ondansetron Hcl 4 Mg/2 Ml Vial) 4 mg IVPUSH Q8H PRN PRN Reason: Nausea and Vomiting Sodium Chloride (0.9 % Sodium Chloride Flush 3 Ml Syringe) 3 ml IVFLUSH QSHIFT [facility] Last Admin: 12/23/24 10:20 Dose: 3 ml Thiamine HCl (Thiamine Hcl 100 Mg Tablet) 100 mg PO DAILY [facility] Last Admin: 12/23/24 10:21 Dose: 100 mg Home Medications ?Medication ?Instructions ?Recorded ?Confirmed ?Last Taken ?Type atorvastatin 40 mg tablet 40 mg PO DAILY 12/23/24 12/23/24 Unknown History clopidogrel 75 mg tablet 75 mg PO DAILY 12/23/24 12/23/24 Unknown History divalproex 250 mg tablet,delayed 250 mg PO BID 12/23/24 12/23/24 Unknown History release multivitamin with folic acid 400 1 tab PO DAILY 12/23/24 12/23/24 Unknown History mcg tablet (Daily-Gricelda (with folic acid)) Physical Exam Vital Signs: Vital Signs: Last Vital Signs Temp 97.9 F 12/23/24 08:07 Pulse 73 12/23/24 08:07 Resp 18 12/23/24 08:07 BP 120/72 12/23/24 08:07 Pulse Ox 95 12/23/24 08:07 O2 Del Method Room Air 12/23/24 08:07 O2 Flow Rate 2 12/22/24 21:34 BMI result Body Mass Index 23.1 Neuro: Other: Alert and awake, decreased spontaneity and fluency of speech. He was able to tell me his name but did not know where he was. He was following some one-step commands. Face seems symmetrical. Visual ortiz were limited but he was able to see color of my shirt and 2 fingers in left hemifield. There was no obvious focal arm or leg weakness. Speech was dysphasic. Results Labs 12/23/24 05:10 12/23/24 05:10 Labs: Short CBC 12/22/24 12/23/24 Range/Units 22:19 05:10 WBC 12.0 H 11.3 H (4.8-10.8) X10*3/uL Hgb 14.3 12.3 L (14.0-18.0) g/dl Hct 41.3 L 35.8 L (42.0-52.0) % Plt Count 427 H 386 (160-400) X10*3/uL BMP 12/22/24 12/23/24 22:19 05:10 Sodium 142 142 Potassium 3.7 4.0 Chloride 110 H 113 H Carbon Dioxide 25 21 L BUN 13 11 Creatinine 1.02 0.81 Calcium 9.2 8.4 D Liver Function 12/22/24 Range/Units 22:19 Total Bilirubin 0.8 (0.0-1.0) mg/dL AST 58 H (5-37) U/L ALT 22 (0-40) U/L Alkaline Phosphatase 47 (39-117) U/L Albumin 4.0 (3.5-5.0) g/dL His MRI of brain revealed a large area of left posterior cerebral artery chronic encephalomalacia and a smaller right posterior cerebral artery area of restricted diffusion. Moderate cortical and cerebellar atrophy was noted. Assessment and Plan (1) Encephalopathy: Qualifiers: Encephalopathy type: unspecified encephalopathy Qualified Code(s): G93.40 - Encephalopathy, unspecified Status: Acute 69 years old man with multifactorial encephalopathy including contribution from an acute right posterior cerebral artery area ischemic infarct. He also has a larger left posterior cerebral artery area chronic infarct. Previously his syphilis serology was positive though titer was not done. Previously his spinal fluid white cells were more than 20 with normal protein. He was in sinus rhythm. My recommendation is to do a CTA of brain and neck to look at his vasculature, do cardiac evaluation to rule out atrial fibrillation or alternate etiology for cardiac source of embolism, repeat syphilis serology and asked for formal titer, and repeat spinal fluid analysis if titer is high. In the meantime treatment is supportive when conservative. Procedures Date of Service Date of Service: 12/23/24
--- NOTE | 2024-12-23 11:21 | PC.NURSE ---
Family (niece) at bedside visiting the patient. Report given to Staci Juarez RN at this time.
--- NOTE | 2024-12-23 11:33 | PC.NURSE ---
Assumed care of this patient at 1100, patient resting queitly in bed at this time, VSS, asking for food. Waiting for bed assignment at this time.
--- NOTE | 2024-12-23 11:42 | PC.NURSE ---
Patient has yet to void since admission to the ED, patient states he has not urinated in 3 days. Informed patient that is highly unusual, will need to be bladder scanned to determine if patient is retaining urine. Admission RN at bedside completing admission.
--- NOTE | 2024-12-23 11:48 | PC.NURSE ---
Patient noted to have labs ordered since 853 this am, not drawn yet. Phlebotomy called, will send staff to draw.
--- NOTE | 2024-12-23 11:49 | PC.NURSE ---
Admission information completed by this RN- plan of care initiated.
--- NOTE | 2024-12-23 13:04 | PC.NURSE ---
Patient unable to pee x2, BS for 534, Dr. Ghosh made aware, will place orders for gan cath.
[2024-12-23 13:34] LABS: Estimated Average Glucose 111 mg/dL; Hemoglobin A1C 127.6191 umol/L; Hemoglobin A1c % 5.5 % (<6.0); Total Hemoglobin (HGBA1C) 3526.2761 umol/L
--- NOTE | 2024-12-23 13:34 | PC.NURSE ---
16F FC inserted w/o complications, 600 dark edwin immediate output, UA and DWYER sent to lab.
[2024-12-23 13:39] LABS: Appearance Urine Clear; Color Urine Dark Yellow; Glucose Urine UA Negative (Negative); Leukocyte Esterase Urine Negative (Negative); Nitrite Urine Negative (Negative); Specific Gravity - Urine >= 1.030 (1.005-1.025); Urine Blood Negative (Negative); Urine Ketones 15 mg/dL (Negative); Urine Protein Trace mg/dL (Neg-Trace)
[2024-12-23 13:50] LABS: Amphetamine Screen Urine Not Detected (Not Detect); Barbiturates, Urine Not Detected (Not Detect); Benzodiazepines Screen Urine POSITIVE (Not Detect); Buprenorphine Scr Not Detected (Not Detect); Cannabinoid Screen Urine Not Detected (Not Detect); Cocaine Screen Urine Not Detected (Not Detect); Fentanyl, urine Not Detected (Not Detect); Methadone Screen, Urine Not Detected (Not Detect); Opiate Screen Urine Not Detected (Not Detect); Oxycodone Screen Urine Not Detected (Not Detect); Phencyclidine Screen Urine Not Detected (Not Detect)
[2024-12-23 13:58] LABS: Cholesterol 114 mg/dL (<200); HDL Cholesterol 35 mg/dL (>40); LDL Cholesterol Calculated 70 mg/dL (<100); Triglycerides 48 mg/dL (<150)
[2024-12-23 14:04] LABS: Reflex LDLD? No
[2024-12-23 14:13] LABS: TSH reflex Free T4 3.08 uIU/mL (0.32-4.0)
[2024-12-23 14:17] LABS: Vitamin B12 271 pg/mL (200-900)
--- NOTE | 2024-12-23 14:32 | PC.NURSE ---
Checked w/ dairy technician - CT scan ordered as routine, will be completed once they are caught up on stat orders.
--- NOTE | 2024-12-23 14:35 | CA_ITS ---
Transthoracic Echocardiogram Patient (Last, First, Middle): Joao Nicole Jr, Gender: Male Date of : 1955 Age: 69 Procedure Date: 12/23/2024 Procedure Type: Transthoracic Echocardiogram [place] [facility] [place]: 177.8 cm Weight: 72.58 kg BSA: 1.90 m2 Heart Rate: bpm BP: 130 / 72 mmHg Peach Grower: TO Referring MD: Papa Ghosh MD Symptoms: recent CVA Study Quality: Adequate w Contrast ECG Rhythm: Sinus Conclusions: - The left ventricular systolic function is normal. The calculated ejection fraction is 59% by biplane method. - No obvious valvular pathology seen on this study. Findings Procedure Information Contrast agent, definity, is being given per protocol without apparent complications. Left Ventricle Normal left ventricular cavity size. There is mildly increased left ventricular wall thickness. The left ventricular systolic function is normal. The calculated ejection fraction is 59% by biplane method. There is no evidence of regional wall motion abnormalities. Diastolic function is normal for age. Right Ventricle Normal right ventricular cavity size. There is low normal right ventricular systolic function. Atria Both atria are normal in size. Aortic Valve There is a normal trileaflet aortic valve. There is no aortic valve stenosis. There is no aortic valve regurgitation. Mitral Valve The mitral valve appears normal. There is trace mitral valve regurgitation. There is no mitral valve stenosis. Pulmonic Valve The pulmonic valve is likely normal. Tricuspid Valve There is trace tricuspid valve regurgitation. Tricuspid regurgitation envelope is inadequate for calculation of right ventricular systolic pressure. Great Vessels The asc aorta is normal in size. Small plaque is seen in the ascending aorta. Venous The inferior vena cava is normal in size and collapses greater than 50% with inspiration. Pericardium/Pleural There is no evidence of pericardial effusion. Prior Study Comparison No significant change compared to prior study dated: 07/01/2017. Recommendations, Care & Conclusions No obvious valvular pathology seen on this study. Measurements 2D Linear Measurements IVSd: 1.15 0.6-0.9/0.6-1.0 cm LVIDd: 4.10 3.9-5.3/4.2-5.9 cm LVIDd Index: 2.16 2.4-3.2/2.2-3.1 cm/m2 LVIDs: 2.83 2.0-3.6 cm LVPWd: 1.07 0.7-1.1 cm LV Mass: 190.86 67-162/88-224 g LV Mass Index: 100.45 43-95/49-115 g/m2 LVOT Diam: 2.10 3.0+(-)1.3 cm 2D Systolic Function EF 4C: 61.70 >55% EF 2C: 55.90 >55% EF BiP: 58.60 >55% Mitral Valve MV Pk E: 0.47 MV PK A: 0.57 MV Decel Time: 204.00 E/A: 0.80 E'Lateral: 11.10 E'Medial: 6.31 E/E' Med: 7.50 E/E' Lat: 4.20 PHT: 60.00 MVA PHT: 3.67 Decel [place]: 2.31 Aortic Valve AoV Pk Shaheed: 1.06 AoV Mn Shaheed: 0.73 AoV VTI: 0.23 AoV Pk Grad: 4.00 Aov Mn Grad: 2.00 SHASTA Cont.VTI: 2.85 LVOT LVOT Pk Shaheed: 0.88 LVOT Mn Shaheed: 0.58 LVOT VTI: 0.19 LVOT Pk Grad: 3.00 LVOT Mn Grad: 2.00 LVOT Diam: 2.10 LVOT Area: 3.46 Diastolic Function MV Pk E: 0.47 MV Pk A: 0.57 E/A: 0.80 E'Medial: 6.31 E/E' Med: 7.50 E' Laterial: 11.10 E/E' Lat: 4.20 Right Ventricle TAPSE (mm): 17.00 TVS' Shaheed: 10.00 Tricuspid Valve TR Pk Shaheed: 2.00 TR Pk Grad: 16.00 RA Press: 3.00 RVSP: 19.00 Great Vessels Aorta Ao Asc: 3.60 2.1-3.4 cm Updated in Other Vendor System with Status of Final Sreekanth Lee MD electronically signed on 12/24/2024 10:17:14 AM with status of Final
--- NOTE | 2024-12-23 14:36 | PM.EVENT ---
Event Note Date of Service: 12/23/24 Event Note: day hospitalist update Spoke to pt's HCP/sister Nelsy Moran by phone d1 for 69yo M with dementia, AUD with hx withdrawal but sober since Apr 2023, COPD, syphilis [treated in 2022 for latent syphilis of unknown duration] presenting with worsening behavioral aggression/agitation sepsis and acute hypoxic respiratory failure due to COPD exacerbation and PNA - unclear where COPD diagnosis from as per sister/HCP, no COPD; will obtain CT chest and review [facility] records - in meanwhile, remains on IV methylprednisolone and nebs, along with ceftriaxone + azithromycin - supplemental O2, wean as tolerated AUD in remission - no recent use - check B1, give thiamine empirically dementia with behavioral disturbance - prescribed Depakote at recent [place] [facility] [place], but has not yet started - review [facility] records - Neuro consulted; see below - recheck syphilis titer recent CVA on MRI [acute right posterior cerebral artery area ischemic infarct, also larger left posterior cerebral artery area chronic infarct] - Neuro consulted; plan CT angio head/neck, TTE, telemetry - continue DAPT + statin for now VTE ppx - enoxaparin dispo - TBD In my clinical judgment, the patient requires continued inpatient hospitalization for the following reasons: behavioral disturbance Time Spent With Patient Time: Total time managing care of this patient today ____ minutes.
[2024-12-23] MEDS: iohexoL 350 MG/ML 100 ML INFUS..BTL IV (15:10)
--- NOTE | 2024-12-23 15:54 | PC.NURSE ---
Informed by injection molding technician R arm IV infiltrated during CTA, were able to get scan completed. IV removed, R arm noticably swollen, heat pack applied.
[2024-12-23] MEDS: cefTRIAXone sodium 1 GM VIAL IVPUSH (15:55)
--- NOTE | 2024-12-23 16:23 | MHC.CM.PN ---
PT WITH DEMENTIA DIAGNOSIS, CM CALLED [facility] [phone] SHE REPORTS THE PT LIVES ALONE AND IS INDEPENDENT WITH CARE AT BASELINE SHE SAYS SHE AND HER STOP BY DAILY AND SHE DOES ALL OF HIS CLEANING HCP ON FILE PCP: SHA NÚÑEZ DELIVERED DCP: HOME ? [facility] TO TRANSPORT
[2024-12-23] MEDS: Divalproex Sodium 250 MG TABLET.DR PO (20:46)
[2024-12-23] MEDS: Melatonin 3 MG TABLET 6 MG PO (20:47)
[2024-12-24 03:19] VITALS: BP 113/62; PULSE 70; RESP 16; TEMP 36.5; O2SAT 95
[2024-12-24 05:17] LABS: Venous Blood Gas Refer to POC result
[2024-12-24 05:19] LABS: HIV AB/AG Nonreactive (Nonreactive); HIV Num 1 0.06 S/CO (0.00-0.99)
[2024-12-24 05:19] LABS: VBG Base Excess 0.7 mmol/L; VBG HCO3 24 mmol/L (22-26); VBG pCO2 37 mmHg; VBG pH 7.42 (7.32-7.43); VBG pO2 67 mmHg
[2024-12-24 06:04] LABS: MANUAL DIFF FLAG NO
[2024-12-24 06:22] LABS: Anion Gap 12 (12-20); Blood Urea Nitrogen 9 mg/dL (9-16); Carbon Dioxide 24 mmol/L (22-29); Chloride 111 mmol/L (96-108); Creatinine Clr Calc Pharmacy 105.9; Estimated Glomerular Filt Rate > 60; Glucose Random 107 mg/dL (60-115); Potassium 4.6 mmol/L (3.3-5.1); Sodium 142 mmol/L (135-145)
[2024-12-24 06:29] LABS: Basophils Absolute Auto 0.1 X10*3/uL (0.0-0.2); Basophils Percent Auto 0.4 % (0-2); Eosinophils Percent Auto 0.1 % (0-4); Hematocrit 38.5 % (42.0-52.0); Hemoglobin 12.8 g/dl (14.0-18.0); Imm Gran Abs Auto 0.06 X10*3/uL (0.00-0.03); Imm Gran Pct Auto 0.4 % (0.0-0.4); Lymphocytes Absolute Auto 3.1 X10*3/uL (1.2-4.9); Lymphocytes Percent Auto 22.4 % (20-40); Mean Corpuscular HGB Conc 33.2 g/dl (31.0-36.0); Mean Corpuscular Hemoglobin 30.1 pg (27.0-33.0); Mean Corpuscular Volume 90.6 fL (80.0-98.0); Mean Platelet Volume 10.4 fL (9.4-12.4); Monocytes Absolute Auto 1.2 X10*3/uL (0.1-1.2); Monocytes Percent Auto 8.5 % (2-11); Neutrophils Absolute Auto 9.3 x10*3/uL (2.0-8.3); Neutrophils Percent Auto 68.2 % (45-73); Platelet Count 417 X10*3/uL (160-400); Red Blood Count 4.25 X10*6/uL (4.60-5.80); Red Cell Distribution Width 15.2 % (11.0-16.0); White Blood Count 13.6 X10*3/uL (4.8-10.8)
[2024-12-24 07:55] VITALS: BP 136/79; PULSE 83; RESP 14; TEMP 36.5; O2SAT 97
[2024-12-24] MEDS: Doxycycline Hyclate 100 MG in 0.9 % Sodium Chloride 250 ML 166.67 MG IV (09:14)
[2024-12-24] MEDS: Enoxaparin Sodium 40 MG/0.4 ML SYRINGE SUBCUT (09:15)
[2024-12-24] MEDS: Thiamine HCL 100 MG TABLET PO (09:16)
[2024-12-24] MEDS: Multivitamin TABLET 1 TAB PO (09:16)
[2024-12-24] MEDS: Divalproex Sodium 250 MG TABLET.DR PO ×2 (09:16→20:46)
[2024-12-24] MEDS: Clopidogrel Bisulfate 75 MG TABLET PO (09:16)
[2024-12-24] MEDS: Aspirin 81 MG TAB.CHEW PO (09:16)
[2024-12-24] MEDS: Atorvastatin Calcium 40 MG TABLET PO (09:16)
[2024-12-24] MEDS: 0.9 % Sodium Chloride Flush 3 ML SYRINGE IVFLUSH ×2 (09:17→20:49)
--- NOTE | 2024-12-24 09:56 | MHC.CM.PN ---
PT IS INDEPENDENT LIVES ALONE BUT NEAR SISTER PT HAS A RIDE HOME WHEN DCD DC PLAN HOME NO SERVICES
[2024-12-24] MEDS: Thiamine HCL 500 MG in 0.9 % Sodium Chloride 100 ML 210 MG IV ×2 (13:10→20:51)
--- NOTE | 2024-12-24 14:43 | P.PNIM_ITS ---
Subjective Subjective Date of Service: 12/24/24 Interval History: oriented to self/location, not date denies dyspnea or cough Review of Systems Review of Systems: Yes all other systems are reviewed and are negative Physical Exam 2 Vital Signs: Vital Signs: Last Vital Signs Temp 97.7 F 12/24/24 07:55 Pulse 83 12/24/24 07:55 Resp 14 12/24/24 07:55 BP 136/79 12/24/24 07:55 Pulse Ox 97 12/24/24 07:55 O2 Del Method Room Air 12/24/24 07:55 O2 Flow Rate 2 12/22/24 21:34 BMI result Body Mass Index 23.1 Gen: in no acute distress HEENT: sclera anicteric, moist mucus membranes Neck: supple Lungs: clear to auscultation bilaterally Heart: regular rate and rhythm, no murmurs Abd: soft, non-tender, non-distended Ext: no edema Skin: warm/well-perfused Neuro: alert and oriented to self/place, no focal findings Psych: limited insight Objective Data Active Medications Acetaminophen (Acetaminophen 325 Mg Tablet) 975 mg PO Q6H PRN PRN Reason: Pain, Mild 1-3,fever,headache Albuterol/Ipratropium (Albuterol/Iprat 2.5/0.5mg 3 Ml Ampul.Neb) 3 ml INHALE Q4H PRN PRN Reason: Shortness of Breath/Wheezing Aspirin (Aspirin 81 Mg Tab.Chew) 81 mg PO DAILY [facility] Last Admin: 12/24/24 09:16 Dose: 81 mg Documented By: EDI Atorvastatin Calcium (Atorvastatin Calcium 40 Mg Tablet) 40 mg PO DAILY [facility] Last Admin: 12/24/24 09:16 Dose: 40 mg Documented By: EDI Calcium Carbonate (Calcium Carbonate 750 Mg Tab.Chew) 750 mg PO Q4H PRN PRN Reason: Heartburn Clopidogrel Bisulfate (Clopidogrel Bisulfate 75 Mg Tablet) 75 mg PO DAILY [facility] Last Admin: 12/24/24 09:16 Dose: 75 mg Documented By: EDI Divalproex Sodium (Divalproex Sodium 250 Mg Tablet.) 250 mg PO BID [facility] Last Admin: 12/24/24 09:16 Dose: 250 mg Documented By: EDI Enoxaparin Sodium (Enoxaparin Sodium 40 Mg/0.4 Ml Syringe) 40 mg SUBCUT Q24H [facility] Last Admin: 12/24/24 09:15 Dose: 40 mg Documented By: EDI Doxycycline Hyclate 100 mg/ (Sodium Chloride) 250 mls @ 166.67 mls/hr IV BID [facility] Last Infusion: 12/24/24 11:22 Dose: Infused Documented By: EDI Thiamine HCl 500 mg/ Sodium (Chloride) 105 mls @ 210 mls/hr IV BID [facility] Last Admin: 12/24/24 13:10 Dose: 210 mls/hr Documented By: EDI Magnesium Hydroxide (Milk Of Magnesia 30 Ml Oral.Susp) 30 ml PO DAILY PRN PRN Reason: Constipation Melatonin (Melatonin 3 Mg Tablet) 6 mg PO BEDTIME PRN PRN Reason: Insomnia Last Admin: 12/23/24 20:47 Dose: 6 mg Documented By: SUSAN Multivitamins/Vitamin C (Multivitamin Tablet) 1 tab PO DAILY [facility] Last Admin: 12/24/24 09:16 Dose: 1 tab Documented By: EDI Ondansetron HCl (Ondansetron Hcl 4 Mg/2 Ml Vial) 4 mg IVPUSH Q8H PRN PRN Reason: Nausea and Vomiting Sodium Chloride (0.9 % Sodium Chloride Flush 3 Ml Syringe) 3 ml IVFLUSH QSHIFT [facility] Last Admin: 12/24/24 09:17 Dose: 3 ml Documented By: EDI Labs 12/24/24 05:12 12/24/24 05:12 Labs: Laboratory Results - last 24 hr 12/23/24 12/24/24 12/24/24 12:07 05:12 05:16 MCV 90.6 MCH 30.1 MCHC 33.2 RDW 15.2 Plt Count 417 H MPV 10.4 Immature Gran % (Auto) 0.4 Neut % (Auto) 68.2 Lymph % (Auto) 22.4 [place] % (Auto) 8.5 Eos % (Auto) 0.1 Baso % (Auto) 0.4 Lymph # (Auto) 3.1 [place] # (Auto) 1.2 Eos # (Auto) 0.0 Baso # (Auto) 0.1 Abs Immat Gran (auto) 0.06 H Absolute Neuts (auto) 9.3 H Absolute Nucleated RBC 0.000 Nucleated RBC % (auto) 0.0 VBG pH 7.42 VBG pCO2 37 VBG pO2 67 VBG HCO3 24 VBG O2 Saturation 88.0 VBG Base Excess 0.7 Anion Gap 12 Estim Creat Clear Calc 105.9 Estimated GFR > 60 Random Glucose 107 Calcium 9.0 D HIV 1&2 Ab/P24 Ag 4thGn Nonreactive Impressions Chest CT 12/23/24 13:56 IMPRESSION: Mild dependent atelectasis. There are no focal airspace opacities to suggest pneumonia. Electronically signed by: Alvin Mehta MD 12/23/2024 03:55 PM EDT RP Head/Neck CTA 12/23/24 14:56 IMPRESSION: NONCONTRAST HEAD CT: 1. Evolving subacute patchy infarcts of the right occipital lobe. 2. Encephalomalacia in the left WAISTLINE JOINER OVERLOCK territory consistent with old infarct. 3. No new ischemic territory infarction. 4. No intracranial hemorrhage or mass effect. CTA NECK: 1. There is an approximate 30% stenosis of the right ICA at the origin. 2. There is an approximate 20% stenosis of the left ICA at the origin. 3. There is no vertebral artery stenosis. CTA HEAD: 1. There is an approximate 60% stenosis of the left cavernous ICA. 2. There is an approximate 50% stenosis of the right cavernous ICA. 3. There is an apparent complete occlusion of the left MCA inferior division M2 segment. There is mild reconstitution of flow via collateralization. There is significant oligemia in the left inferior division segment territory. 4. There is an occlusion of the left WAISTLINE JOINER OVERLOCK at the P1/P2 junction. There is minimal reconstitution of flow distally. 5. There is a moderate grade stenosis of the right WAISTLINE JOINER OVERLOCK at the P1/P2 junction, and there are high-grade tandem stenoses involving the P2/P3 junction and right P4 branches. This critical result was discussed with Dr Ghosh of [facility] at 4:50 PM, 12/23/2024. It was ascertained that the content and urgency of the report was understood at the time of direct communication. Electronically signed by: Frank Hurt MD 12/23/2024 05:10 PM EDT RP Microbiology Microbiology Results: Microbiology 12/22/24 22:31 Blood Culture - Preliminary Blood - Venous No growth after 24 hours. 12/22/24 22:19 Blood Culture - Preliminary Blood - Venous No growth after 24 hours. Assessment and Plan (1) Dementia: Status: Acute Plan d2 for 69yo M with dementia, AUD with hx withdrawal but sober since Apr 2023, COPD, syphilis [treated in 2022 for latent syphilis of unknown duration] presenting with worsening behavioral aggression/agitation admitted for sepsis and acute hypoxic respiratory failure attributed to COPD exacerbation and PNA leukocytosis hypoxia tachycardia - No evidence of COPD or PNA by CT scan and no history per sister/HCP Nelsy. I think the hypoxia could have been from atelecatsis, the tachycardia from agitation, and the leukocytosis nonspecific. PCT is low. I stopped antibiotics and steroids and will observe for now. I do not think he was ever septic. Hypoxia resolved quickly AUD in remission; question of Wernicke-Korsakoff syndrome - no recent use - check B1, give thiamine empirically IV dementia with behavioral disturbance recent CVA on outpatient MRI [acute right posterior cerebral artery area ischemic infarct, also larger left posterior cerebral artery area chronic infarct] - He [place] [facility] for [place] MRI findings and was noted to be confused and forgetful. Neurology was consulted and DAPT x3mo followed by ASA monotherapy was recommended, along with statin. He was not a candidate for cerebral reperfusion therapies. Psychiatry was consulted and he was started on Depakote, but this was weaned as per Geriatrics consultation. He was discharged home with 24/7 care at home recommended. OT performed MOCA here, which was only 11/17. - as per our Neurology platform consultant, will recheck syphilis titer VTE ppx - enoxaparin dispo - TBD, needs 24/7 care In my clinical judgment, the patient requires continued inpatient hospitalization for the following reasons: placement Total time managing care of this patient today: 45 minutes. Quality Stroke Does the patient have a stroke diagnosis?: No VTE Prior VTE?: No VTE Risk Level:: Medical - moderate - high VTE Device Contraindication: Treatment Not Indicated VTE Drug Contraindication: N/A - Med Ordered
[2024-12-24 15:29] VITALS: BP 154/78; PULSE 77; RESP 16; TEMP 36.9; O2SAT 96
--- NOTE | 2024-12-24 15:50 | MHC.CM.PN ---
met with pts sister denia who cares for pt she confirms plan is for pt to return home when dcd
[2024-12-24 20:00] VITALS: BP 162/96; PULSE 73; RESP 17; TEMP 36.4; O2SAT 95
[2024-12-24] MEDS: Melatonin 3 MG TABLET 6 MG PO (20:46)
[2024-12-25 04:00] VITALS: BP 133/81; PULSE 72; RESP 18; TEMP 36.4; O2SAT 93
[2024-12-25 06:37] LABS: Basophils Absolute Auto 0.2 X10*3/uL (0.0-0.2); Basophils Percent Auto 1.3 % (0-2); Eosinophils Absolute Auto 0.5 X10*3/uL (0.0-0.4); Eosinophils Percent Auto 3.7 % (0-4); Hematocrit 39.6 % (42.0-52.0); Hemoglobin 13.7 g/dl (14.0-18.0); Imm Gran Abs Auto 0.06 X10*3/uL (0.00-0.03); Imm Gran Pct Auto 0.5 % (0.0-0.4); Lymphocytes Absolute Auto 5.3 X10*3/uL (1.2-4.9); Lymphocytes Percent Auto 42.8 % (20-40); MANUAL DIFF FLAG SCAN; Mean Corpuscular HGB Conc 34.6 g/dl (31.0-36.0); Mean Corpuscular Hemoglobin 31.1 pg (27.0-33.0); Mean Corpuscular Volume 89.8 fL (80.0-98.0); Mean Platelet Volume 10.4 fL (9.4-12.4); Monocytes Absolute Auto 1.1 X10*3/uL (0.1-1.2); Monocytes Percent Auto 8.6 % (2-11); Neutrophils Absolute Auto 5.3 x10*3/uL (2.0-8.3); Neutrophils Percent Auto 43.1 % (45-73); Platelet Count 452 X10*3/uL (160-400); Red Blood Count 4.41 X10*6/uL (4.60-5.80); Red Cell Distribution Width 15.3 % (11.0-16.0); SCAN SMEAR FLAG 1; White Blood Count 12.3 X10*3/uL (4.8-10.8)
[2024-12-25 06:56] LABS: Anion Gap 12 (12-20); Blood Urea Nitrogen 12 mg/dL (9-16); Calcium 8.6 mg/dL (8.4-10.2); Carbon Dioxide 24 mmol/L (22-29); Chloride 110 mmol/L (96-108); Creatinine Clr Calc Pharmacy 94.6; Estimated Glomerular Filt Rate > 60; Glucose Random 91 mg/dL (60-115); Potassium 4.1 mmol/L (3.3-5.1); Sodium 142 mmol/L (135-145)
--- NOTE | 2024-12-25 07:16 | PC.NURSE ---
late entry: Pt refused bed alarm, pt A&Ox4, pt educated on the importance of the high fall risk policy and to use the call edwards for assistance. Pt's bed in the lowest position w/ call edwards within reach. Will continue to monitor.
[2024-12-25 07:52] LABS: SLIDE REVIEW VERIFIED
[2024-12-25 07:54] VITALS: BP 125/70; PULSE 71; RESP 17; TEMP 36.6; O2SAT 93
--- NOTE | 2024-12-25 09:22 | MHC.CM.PN ---
CM INFORMED PT IS MEDICALLY CLEARED FOR DC CM CALLED PTS SISTER/HCP, TRAC[facility] [phone] WHO CONFIRMS THE DCP IS HOME PER DISCUSSION, THE [facility] SERVICES WILL BE RESUMED AND A REFERRAL WILL BE MADE TO [facility] ([facility]) [facility] REPORTS WHEN THE PT IS HOME HE DOES WELL AND HAS A ROUTINE SHE SAYS SHE AND HER FAMILY CHECK IN ON THE PT THROUGHOUT THE DAY AND THEY LIVE ABOUT [address] A [address] SHE WILL PROVIDE TRANSPORT FOR THE PT AND WILL BRING HIM CLOTHES TO WEAR HOME AROUND LUNCH TIME TODAY PT WILL DC HOME WITH RESUMPTION OF [facility] AND A REFERRAL TO [facility] SISTER TO TRANSPORT
[2024-12-25] MEDS: Thiamine HCL 500 MG in 0.9 % Sodium Chloride 100 ML 210 MG IV (09:45)
[2024-12-25] MEDS: Atorvastatin Calcium 40 MG TABLET PO (09:46)
[2024-12-25] MEDS: Enoxaparin Sodium 40 MG/0.4 ML SYRINGE SUBCUT (09:46)
[2024-12-25] MEDS: Clopidogrel Bisulfate 75 MG TABLET PO (09:46)
[2024-12-25] MEDS: 0.9 % Sodium Chloride Flush 3 ML SYRINGE IVFLUSH (09:46)
[2024-12-25] MEDS: Divalproex Sodium 250 MG TABLET.DR PO (09:46)
[2024-12-25] MEDS: Aspirin 81 MG TAB.CHEW PO (09:46)
[2024-12-25] MEDS: Multivitamin TABLET 1 TAB PO (09:46)
--- NOTE | 2024-12-25 10:16 | P.F2F_ITS ---
Service Date Service Date: 12/25/24 Encounter Date of encounter: 12/25/24 Reasons for Services Signs and symptoms assessed: cognitive impairment Reason for intermediate: neurological assessment, medication management, medication treatment and teach disease management Reason for physical therapy: home safety and mobility, therapeutic exercises, gait/transfer training, assess need for DME, ADL training and energy conservation Reason for occupational therapy: home safety and mobility, therapeutic exercises, gait/transfer training, assess need for DME, ADL training and energy conservation MD Overseeing Care: Nydia Eugene Homebound: Leaving the home is medically contraindicated at this time without the asist of a device and/or another person due th the listed conditions above and below. Reason homebound: unsteady gait / fall risk and cognitively impaired / unsafe Certification: Based on the above findings, I certify that this patient is confined to the home and needs intermittent intermediate care, physical therapy and/or speech therapy, or continues to need occupational therapy. The patient is under my care, and I have initiated the establishment of the plan of care. The patient will be followed by a physician who will periodically review the plan of care. Time Spent With Patient Time: Total time managing care of this patient today ____ minutes.
--- NOTE | 2024-12-25 10:17 | PM.DS ---
DS: Providers Provider Date of Service: 12/25/24 Date of admission: 12/23/24 01:40 Date of discharge: 12/25/24 Primary care physician: Unknown Physician Consults: 12/23/24 08:54 Consult to Neurology Routine Consulting Provider: [facility] Reason for consultation: dementia- EtOH, vascular, Alz. Recent MRI +acute CVA DS: Diagnosis Discharge Diagnosis (1) Dementia: Status: Acute (2) History of alcohol abuse: Status: Acute (3) Vascular dementia: Status: Acute (4) Acute hypoxic respiratory failure: Status: Acute DS: Summary Hospital Course Hospital Course: From the history and physical by the admitting hospitalist, Farheen Toledo, 12/23/24: Patient is a 69-year-old male with a past medical history significant for dementia with education and delirium, COPD unspecified, alcohol use disorder with history of alcohol withdrawal, and BPH, who presented to the ED due to aggression and agitation at home requiring his son to call PD. His son denies him consuming any alcohol recently. The patient's history is difficult to obtain as the patient is uncooperative and the son does not know much about his history and had to leave as he states that his presence worsens the patient's agitation. 69yo M with dementia, AUD with hx withdrawal but sober since Apr 2023, COPD, syphilis [treated in 2022 for latent syphilis of unknown duration] presenting with worsening behavioral aggression/agitation; initially admitted for sepsis and acute hypoxic respiratory failure attributed to COPD exacerbation and PNA by the admitting team. However, there was no evidence of COPD or PNA by CT scan and no history per review of the chart here at [facility] or at [facility] and per discussion with his sister/HCP Nelsy. I think the hypoxia could have been from atelecatsis, the tachycardia from agitation, and the leukocytosis nonspecific. PCT was low. I stopped antibiotics and steroids and the patient had no shortness of breath, wheezing, or cough. I do not think he was ever septic. Hypoxia resolved quickly, by the time he got to the floor. He does have a history of AUD in remission since April. He was given empiric thiamine and should continue this. 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 Neurology was consulted there and DAPT x3mo followed by ASA monotherapy was recommended, along with statin. He was not a candidate for cerebral reperfusion therapies. Psychiatry was consulted and he was started on Depakote, but this was weaned as per Geriatrics consultation. He was discharged home with 24/7 care at home recommended. He did not take Depakote at home. OT performed MOCA here, which was only 11/17. As per our Neurology exchange underwriting consultant, syphilis titer was rechecked and is pending at the time of discharge but RPR was nonreactive back in April 2024. He was discharged home with 24/7 care at home recommended. He and his sister did not want to seek long-term care facility. He was discharged home with VNA services and referral for home care. For agitation, low-dose quetiapine was prescribed. The patient is now off of Depakote. Time Attestation Discharge Coordination Time (in mins): 35 Quality: Safe Use of Opioids Does Pt have an Active Cancer Diagnosis on the Problem List?: No Quality: Stroke Does the patient have a stroke diagnosis?: No Physical Exam Vital Signs: Vital Signs: Last Vital Signs Temp 97.8 F 12/25/24 07:54 Pulse 71 12/25/24 07:54 Resp 17 12/25/24 07:54 BP 125/70 12/25/24 07:54 Pulse Ox 93 12/25/24 07:54 O2 Del Method Room Air 12/25/24 07:54 O2 Flow Rate 2 12/22/24 21:34 BMI result Body Mass Index 23.1 Gen: in no acute distress HEENT: sclera anicteric, moist mucus membranes Neck: supple Lungs: clear to auscultation bilaterally Heart: regular rate and rhythm, no murmurs Abd: soft, non-tender, non-distended Ext: no edema Skin: warm/well-perfused Neuro: alert and oriented to self/place, no focal findings Psych: limited insight DS: Data Data Completed and Pending Completed studies during hospitalization [Text1]: Laboratory Results WBC 12.3 X10*3/uL (4.8-10.8) H 12/25/24 05:48 RBC 4.41 X10*6/uL (4.60-5.80) L 12/25/24 05:48 Hgb 13.7 g/dl (14.0-18.0) L 12/25/24 05:48 Hct 39.6 % (42.0-52.0) L 12/25/24 05:48 MCV 89.8 fL (80.0-98.0) 12/25/24 05:48 MCH 31.1 pg (27.0-33.0) 12/25/24 05:48 MCHC 34.6 g/dl (31.0-36.0) 12/25/24 05:48 RDW 15.3 % (11.0-16.0) 12/25/24 05:48 Plt Count 452 X10*3/uL (160-400) H 12/25/24 05:48 MPV 10.4 fL (9.4-12.4) 12/25/24 05:48 Immature Gran % (Auto) 0.5 % (0.0-0.4) H 12/25/24 05:48 Neut % (Auto) 43.1 % (45-73) L 12/25/24 05:48 Lymph % (Auto) 42.8 % (20-40) H 12/25/24 05:48 Preston % (Auto) 8.6 % (2-11) 12/25/24 05:48 Eos % (Auto) 3.7 % (0-4) 12/25/24 05:48 Baso % (Auto) 1.3 % (0-2) 12/25/24 05:48 Lymph # (Auto) 5.3 X10*3/uL (1.2-4.9) H 12/25/24 05:48 Preston # (Auto) 1.1 X10*3/uL (0.1-1.2) 12/25/24 05:48 Eos # (Auto) 0.5 X10*3/uL (0.0-0.4) H 12/25/24 05:48 Baso # (Auto) 0.2 X10*3/uL (0.0-0.2) 12/25/24 05:48 Abs Immat Gran (auto) 0.06 X10*3/uL (0.00-0.03) H 12/25/24 05:48 Absolute Neuts (auto) 5.3 x10*3/uL (2.0-8.3) 12/25/24 05:48 Absolute Nucleated RBC 0.000 X10*3/uL (0.0-0.012) 12/25/24 05:48 Nucleated RBC % (auto) 0.0 /100WBC (0.0-0.2) 12/25/24 05:48 Smear Tech's Comments VERIFIED 12/25/24 05:48 D-Dimer High Sensitivty 159 NG/ML 12/23/24 00:02 VBG pH 7.42 (7.32-7.43) 12/24/24 05:16 VBG pCO2 37 mmHg 12/24/24 05:16 VBG pO2 67 mmHg 12/24/24 05:16 VBG HCO3 24 mmol/L (22-26) 12/24/24 05:16 VBG O2 Saturation 88.0 % 12/24/24 05:16 VBG Base Excess 0.7 mmol/L 12/24/24 05:16 Sodium 142 mmol/L (135-145) 12/25/24 05:48 Potassium 4.1 mmol/L (3.3-5.1) 12/25/24 05:48 Chloride 110 mmol/L (96-108) H 12/25/24 05:48 Carbon Dioxide 24 mmol/L (22-29) 12/25/24 05:48 Anion Gap 12 (12-20) 12/25/24 05:48 BUN 12 mg/dL (9-16) 12/25/24 05:48 Creatinine 0.75 mg/dL (0.5-1.4) 12/25/24 05:48 Estim Creat Clear Calc 94.6 12/25/24 05:48 Estimated GFR > 60 12/25/24 05:48 Random Glucose 91 mg/dL (60-115) 12/25/24 05:48 Estimat Average Glucose 111 mg/dL 12/23/24 12:07 Hemoglobin A1c % 5.5 % (<6.0) 12/23/24 12:07 Lactic Acid 1.1 mmol/L (0.5-2.0) 12/22/24 22:19 Calcium 8.6 mg/dL (8.4-10.2) 12/25/24 05:48 Magnesium 2.1 mg/dL (1.6-2.6) 12/22/24 22:19 Total Bilirubin 0.8 mg/dL (0.0-1.0) 12/22/24 22:19 AST 58 U/L (5-37) H 12/22/24 22:19 ALT 22 U/L (0-40) 12/22/24 22:19 Alkaline Phosphatase 47 U/L (39-117) 12/22/24 22:19 Troponin I High Sens 8.5 ng/L (<3.5-35.0) 12/22/24 22:19 B-Natriuretic Peptide < 10 pg/mL (<100) 12/23/24 05:10 Total Protein 7.2 g/dL (6.5-8.0) 12/22/24 22:19 Albumin 4.0 g/dL (3.5-5.0) 12/22/24 22:19 Triglycerides 48 mg/dL (<150) 12/23/24 12:07 Cholesterol 114 mg/dL (<200) 12/23/24 12:07 LDL Cholesterol, Calc 70 mg/dL (<100) 12/23/24 12:07 HDL Cholesterol 35 mg/dL (>40) L 12/23/24 12:07 Vitamin B12 271 pg/mL (200-900) 12/23/24 12:07 Procalcitonin 0.09 ng/mL 12/23/24 05:10 TSH 3.08 uIU/mL (0.32-4.0) 12/23/24 12:07 Urine Color Dark Yellow 12/23/24 13:31 Urine Appearance Clear 12/23/24 13:31 Urine pH 6.0 (5.0-9.0) 12/23/24 13:31 Ur Specific [place] >= 1.030 (1.005-1.025) H 12/23/24 13:31 Urine Protein Trace mg/dL (Neg-Trace) 12/23/24 13:31 Urine Glucose (UA) Negative mg/dL (Negative) 12/23/24 13:31 Urine Ketones 15 mg/dL (Negative) 12/23/24 13:31 Urine Blood Negative (Negative) 12/23/24 13:31 Urine Nitrite Negative (Negative) 12/23/24 13:31 Ur Leukocyte Esterase Negative (Negative) 12/23/24 13:31 Urine Opiates Screen Not Detected (Not Detect) 12/23/24 13:31 Ur Buprenorphine Scrn Not Detected ng/mL (Not Detect) 12/23/24 13:31 Ur Oxycodone Screen Not Detected ng/mL (Not Detect) 12/23/24 13:31 Urine Methadone Screen Not Detected ng/mL (Not Detect) 12/23/24 13:31 Urine Fentanyl Screen Not Detected (Not Detect) 12/23/24 13:31 Ur Barbiturates Screen Not Detected (Not Detect) 12/23/24 13:31 Ur Phencyclidine Scrn Not Detected (Not Detect) 12/23/24 13:31 Ur Amphetamines Screen Not Detected (Not Detect) 12/23/24 13:31 U Benzodiazepines Scrn POSITIVE (Not Detect) H 12/23/24 13:31 Urine Cocaine Screen Not Detected (Not Detect) 12/23/24 13:31 U Marijuana (THC) Screen Not Detected (Not Detect) 12/23/24 13:31 Ethyl Alcohol < 10 mg/dL 12/22/24 22:19 HIV 1&2 Ab/P24 Ag 4thGn Nonreactive (Nonreactive) 12/23/24 12:07 Influenza Type A (PCR) NEGATIVE (Negative) 12/22/24 22:54 Influenza Type B (PCR) NEGATIVE (Negative) 12/22/24 22:54 RSV RNA Qual (PCR) NEGATIVE (Negative) 12/22/24 22:54 SARS-CoV-2 RNA (RT-PCR) NEGATIVE (Negative) 12/22/24 22:[address] 12/23/24 13:56 IMPRESSION: Mild dependent atelectasis. There are no focal airspace opacities to suggest pneumonia. Electronically signed by: Alvin Mehta MD 12/23/2024 03:55 PM EDT Head/Neck CTA 12/23/24 14:56 IMPRESSION: NONCONTRAST HEAD CT: 1. Evolving subacute patchy infarcts of the right occipital lobe. 2. Encephalomalacia in the left HUMAN RELATIONS MANAGER territory consistent with old infarct. 3. No new ischemic territory infarction. 4. No intracranial hemorrhage or mass effect. CTA NECK: 1. There is an approximate 30% stenosis of the right ICA at the origin. 2. There is an approximate 20% stenosis of the left ICA at the origin. 3. There is no vertebral artery stenosis. CTA HEAD: 1. There is an approximate 60% stenosis of the left cavernous ICA. 2. There is an approximate 50% stenosis of the right cavernous ICA. 3. There is an apparent complete occlusion of the left MCA inferior division M2 segment. There is mild reconstitution of flow via collateralization. There is significant oligemia in the left inferior division segment territory. 4. There is an occlusion of the left HUMAN RELATIONS MANAGER at the P1/P2 junction. There is minimal reconstitution of flow distally. 5. There is a moderate grade stenosis of the right HUMAN RELATIONS MANAGER at the P1/P2 junction, and there are high-grade tandem stenoses involving the P2/P3 junction and right P4 branches. This critical result was discussed with Dr Ghosh of [facility] at 4:50 PM, 12/23/2024. It was ascertained that the content and urgency of the report was understood at the time of direct communication. Electronically signed by: Frank Hurt MD 12/23/2024 05:10 PM EDT RP Discharge Plan Discharge Anticipated Discharge Date/Time: 12/25/24 10:25 Patient Disposition: Home Health Service Discharge Diagnosis: dementia with behavioral disturbance Referrals: [facility] [Other] - 1 Week (referral made for home care services ) [facility] [Outside] Physician,Unknown J [Primary Care Provider] - 1 Week Discharge Medications: New aspirin 81 mg Tablet,Chewable 81 mg PO DAILY Qty: 30 0RF thiamine HCl (vitamin B1) 100 mg tablet 100 mg PO DAILY Qty: 30 0RF quetiapine 25 mg tablet 25 mg PO TID PRN (Reason: agitation) Qty: 90 0RF Continued atorvastatin 40 mg tablet 40 mg PO DAILY clopidogrel 75 mg tablet 75 mg PO DAILY multivitamin with folic acid [Daily-Gricelda (with folic acid)] 400 mcg tablet 1 tab PO DAILY Discontinued divalproex 250 mg tablet,delayed release (DR/EC) 250 mg PO BID Discharge Orders: Discharge Order (Routine); Ordered 12/25/24 Ordered By: Papa Ghosh Diet: Advance to usual diet Activity on Discharge: As tolerated Stand Alone Forms: Patient Portal Discharge page Print Language: Australian Care Plan Goals: behavioral control Health Concerns: dementia with behavioral disturbance Plan of Treatment: quetiapine 25 mg 3x a day as needed for agitation thiamine 100 mg once daily take aspirin 81 mg daily PLUS clopidogrel 75 mg daily for total 3 months, then just aspirin 81 mg daily take atorvastatin 40 mg daily Please follow up with your primary care doctor within 1 week. Return to the hospital if you experience recurrent or worsening symptoms. Assessment: See Discharge Summary.
[2024-12-26 18:02] LABS: Vitamin B1 315 nmol/L (8-30)
[2024-12-28 06:33] LABS: RPR Rapid Plasma Reagin REACTIVE (NON-REACTIVE)
== END 2024-12-25 12:22 | disposition home or self-care (01) | DRG 871 ==
LOC: HO.ED 12-23 01:11 → HO.EDOVER 12-23 01:49 → HO.S3 12-23 19:10
PROVIDERS: Physician Assistant Medical; Admitting Provider Physician Assistant; Emergency Provider Emergency Medicine; PCP Student in an Organized Health Care Education/Training Program; Visit Provider Family Medicine
DX: A41.9 Sepsis, unspecified organism (principal); G93.41 Metabolic encephalopathy; J96.01 Acute respiratory failure with hypoxia; J44.0 Chronic obstructive pulmonary disease with (acute) lower respiratory infection; J44.1 Chronic obstructive pulmonary disease with (acute) exacerbation; F03.918 Unspecified dementia, unspecified severity, with other behavioral disturbance; F10.11 Alcohol abuse, in remission; N40.0 Benign prostatic hyperplasia without lower urinary tract symptoms; Z86.73 Personal history of transient ischemic attack (TIA), and cerebral infarction without residual deficits; Z20.822 Contact with and (suspected) exposure to COVID-19; Z79.02 Long term (current) use of antithrombotics/antiplatelets; Z79.899 Other long term (current) drug therapy
CPT/HCPCS: 0241U; 36415; 70496; 70498; 71045; 71250; 80048; 80053; 80061; 80307; 81003; 82607; 82803; 83036; 83605; 83735; 83880; 84145; 84425; 84443; 84484; 85025; 85379; 86592; 86593; 87040; 87389; 92610; 93005; 93306; 94640; 97165; 99285; J0131; J0456; J0696; J1271; J1630; J1650; J2250; J2919; J3411; J3475; Q9957; Q9967

== ENCOUNTER → 2024-12-22 21:49 | Outpatient (BNV) | payer MEDICARE, MEDICAID, SELFPAY | PROVIDERS: Emergency Provider Emergency Medicine; Visit Provider Radiology Diagnostic Radiology | DX: J98.4 Other disorders of lung (principal) | CPT/HCPCS: 71045 ==

== ENCOUNTER → 2024-12-22 21:49 | Outpatient (BNV) | payer MEDICARE, MEDICAID, SELFPAY | PROVIDERS: Admitting Provider Physician Assistant; Emergency Provider Emergency Medicine; Visit Provider Internal Medicine | DX: F10.90 Alcohol use, unspecified, uncomplicated (principal) | CPT/HCPCS: 93010 ==

== ENCOUNTER 2024-12-23 01:40 | Outpatient (BNV) | payer MEDICARE, MEDICAID, SELFPAY | END 2024-12-23 14:35 | PROVIDERS: Admitting Provider Physician Assistant; Emergency Provider Emergency Medicine; Visit Provider Internal Medicine | DX: I51.89 Other ill-defined heart diseases (principal) | CPT/HCPCS: 93306 ==

== ENCOUNTER 2024-12-23 01:40 | Outpatient (BNV) | payer MEDICARE, MEDICAID, SELFPAY | END 2024-12-23 13:56 | PROVIDERS: Admitting Provider Physician Assistant; Emergency Provider Emergency Medicine; Visit Provider Radiology Diagnostic Radiology | DX: I65.23 Occlusion and stenosis of bilateral carotid arteries (principal); J18.9 Pneumonia, unspecified organism; J44.9 Chronic obstructive pulmonary disease, unspecified | CPT/HCPCS: 70496; 70498 ==

== ENCOUNTER → 2024-12-23 01:40 | Outpatient (BNV) | payer MEDICARE, MEDICAID, SELFPAY | PROVIDERS: Admitting Provider Physician Assistant; Emergency Provider Emergency Medicine; Visit Provider Family Medicine | DX: G93.41 Metabolic encephalopathy (principal); J96.01 Acute respiratory failure with hypoxia; A41.9 Sepsis, unspecified organism; J44.1 Chronic obstructive pulmonary disease with (acute) exacerbation; J40 Bronchitis, not specified as acute or chronic | CPT/HCPCS: 99223; 99232; 99239; 99499; G0180 ==

== ENCOUNTER → 2024-12-23 01:40 | Outpatient (BNV) | payer MEDICARE, MEDICAID, SELFPAY | PROVIDERS: Admitting Provider Physician Assistant; Emergency Provider Emergency Medicine; Visit Provider Psychiatry & Neurology Neurology | DX: G93.40 Encephalopathy, unspecified (principal) | CPT/HCPCS: 99222 ==

== ENCOUNTER 2025-04-08 10:42 | Emergency (ER) | payer MEDICARE, MEDICAID, SELFPAY ==
--- NOTE | ~2025-04-08 | CT_ITS ---
EXAMINATION: CT HEAD WITHOUT CONTRAST CLINICAL INFORMATION: Change in mental status, R/O stroke, bleed, mass COMPARISON: December 23, 2024 TECHNIQUE: Contiguous axial imaging was performed from the skull base to vertex without intravenous administration of contrast. This CT examination was performed using dose optimization techniques as appropriate, variously including the following: *Automated exposure control *Adjustment of mA and/or kV according to patient size (this includes techniques or standardized protocols for targeted exams where dose is matched to indication/reason for exam; i.e. extremities or head) *Use of iterative reconstruction technique DLP: 665 mGY*cm FINDINGS: There is no acute ischemic change. Chronic ischemic changes are again identified involving the left frontal lobe, left occipital lobe, along with moderate periventricular white matter hypodensities. Chronic infarcts in the right caudate region is again noted. There is no intracranial hemorrhage. There is no mass-effect or midline shift. There is ex vacuo dilatation of the left lateral ventricle. Orbits are symmetrical and unremarkable. Paranasal sinuses and mastoid air cells are pneumatized. There are no bony abnormalities. CT/CT head/brain wo IV con IMPRESSION: No acute intracranial abnormality. Stable chronic ischemic changes. Electronically signed by: Edenilson Ren MD 04/08/2025 11:42 AM EDT
--- NOTE | ~2025-04-08 | XR_ITS ---
EXAMINATION: XR CHEST CLINICAL INFORMATION: Change in mental status, R/O pneumonia COMPARISON: December 22, 2024 TECHNIQUE: Frontal view of the chest was obtained. FINDINGS: Cardiac silhouette is borderline enlarged. There is opacity in the left lateral lung base, increased from the prior. Regular opacity obscures the right heart margin seen to the central diaphragm, new since the prior. Lungs are clear otherwise. XR/XR chest 1V IMPRESSION: Right middle lobe and left lateral lung base opacities could represent atelectasis or pneumonia. Borderline cardiomegaly. Electronically signed by: Edenilson Ren MD 04/08/2025 11:22 AM EDT
--- NOTE | ~2025-04-08 | CT_ITS ---
EXAMINATION: CT CHEST WITHOUT CONTRAST CLINICAL INFORMATION: Altered Mental status. Evaluate for pneumonia. COMPARISON: 12/23/2024. Chest x-ray dated earlier same day. TECHNIQUE: Multidetector volumetric CT imaging of the chest was done. Axial MIP volume rendering provided. Sagittal and coronal reformatted images were obtained. This CT examination was performed using dose optimization techniques as appropriate, variously including the following: *Automated exposure control *Adjustment of mA and/or kV according to patient size (this includes techniques or standardized protocols for targeted exams where dose is matched to indication/reason for exam; i.e. extremities or head) *Use of iterative reconstruction technique FINDINGS: LUNGS: Lungs are well pneumatized bilaterally. There is mild linear atelectasis in both lung bases. There is no pneumonic consolidation or abnormal opacity. There is no interstitial abnormality. The small airways appear normal. There are no suspicious nodules. There is no effusion or pneumothorax. MEDIASTINUM: There is mild cardiac enlargement. There is no pericardial effusion. There is no mass or abnormal lymphadenopathy. Thyroid is normal. The aorta is mildly calcified but nonaneurysmal. The main pulmonary artery is normal in size. CORONARY ARTERY CALCIFICATION: Moderate. AXILLA/CHEST WALL: No mass or abnormal lymph nodes. UPPER ABDOMEN: There are a few calcified granulomata in the liver. 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 There is a small splenule remaining. OSSEOUS STRUCTURES: No suspicious lytic or blastic bone lesions. CT/CT chest wo IV con IMPRESSION: 1. There is no evidence of pneumonia. There is linear type atelectasis in both lung bases. Lungs are otherwise clear. 2. Mild cardiac enlargement. Moderate degree of coronary calcifications. 3. Additional ancillary findings as discussed in the body of the report. Electronically signed by: Frank Hurt MD 04/08/2025 03:04 PM EDT
--- OUTSIDE RECORDS SUMMARY | 2025-04-08 09:30 | XMS_ITS | Encounter Summary ---
Author Organization [employer] Address [address] [place] [address] [address] [place] [address] Care Team Providers Care Perforator Name Role Phone Nydia Simon MD Primary Care Pro vider Reason for Referral * Consultation (Routine) - Pending Review Specialty Diagnoses / Procedures Referred By Contac t Referred To Contact Gastroenterology Diagnoses Colon cancer screening Hx of gastric ulcer Nydia Simon MD [address] [place] [id number] Phone: tel: fax: Referral ID Status Reason Start Date Expiration Date Visits Requested Visits Authorized [id number] Pending Review Specialty Services Required 04/08/2025 04/08/2026 1 1 Encounter Details Date Type Department Care Team (Late st Contact Info) Description 04/08/2025 9:30 AM EDT Office Visit [facility] [address] [place] [address] [phone] Nydia Simon MD [address] [place] [address] [phone] Colon cancer screening (Primary Dx); Hx of gastric ulcer Social History Tobacco Use Types Packs/Day Years Used Date Smoking Tobacco: Former Cigarettes Passive Smoke Exposure: Never Smokeless Tobacco: Never Tobacco Cessation:Counseling Given: Not Answered Comments:Started 13 years of age until 61 [...] housing situation today? I have uriel castellon 02/04/[address] you li ve. Do you have problems with any of the following? None of the above 02/04/2025 Food Insecurity Answer Date Recorded Within the past 12 months, y ou worried that your food would run out before you got money to buy more: Never True 02/04/2025 Within the past 12 months,th e food you bought just didn't last and you didn't have enough money to get more: Never True Transportation Answer Date Recorded In the past 12 months, has l ack of transportation kept you from medical appts, meetings, work or from getting things needed for daily living? No 02/04/2025 Utilities Answer Date Recorded In the past 12 months, has t he electric, gas, oil or water company threatened to shut off services in your home? No 02/04/2025 Depression Answer Date Recorded Patient Health Questionnaire-2 Score 3 02/04/2025 Internet Access Answer Date Recorded Internet Access Q1 Yes 02/04/2025 Internet Access Q2 Not on file 02/04/2025 Sex and Gender Information Value Date Recorded Sex Assigned at Male 05/20/2022 10:17 AM EDT Legal Sex Male 10:17 AM EDT Gender Identity Male 04/11/2023 10:34 AM EDT Sexual Orientation Straight 04/16/2023 9: 28 AM EDT documented as of this encounter Last Filed Vital Signs Vital Sign Reading Time Taken Comments Blood Pressure 104/70 04/08/2025 9:38 AM EDT Pulse 86 04/08/2025 9:38 AM EDT Temperature 36.1 C (96.9 F) 04/08/2025 9:38 AM EDT Respiratory Rate 20 04/08/2025 9:38 AM EDT Oxygen Saturation 97% 04/08/2025 9:38 AM EDT Inhaled Oxygen Concentration - - Weight 78 kg (172 lb) 04/08/2025 9:38 AM EDT Height 170.2 cm (5' 7 ) 04/08/2025 9:38 AM EDT Body Mass Index 26.94 04/08/2025 9:38 AM EDT documented in this encounter Plan of Treatment Upcoming Encounters Date Type Department Care Team (Late st Contact Info) Description 07/26/2025 2:30 PM EST Office Visit [facility] [address] [place] [address] Brianna Cedeño, OD [address] [place] [address] Scheduled Referrals Name Type Priority Associated Diagnoses Order Schedule Referral to Gastroenterology Outpatient Referral Routine Colon cancer screening Hx of gastric ulcer Expected: 04/08/2025 (Approximate), Expires: 04/08/2026 documented as of this encounter Visit Diagnoses Diagnosis Colon cancer screening- Primary Special screening for malignant neoplasms, colon Hx of gastric ulcer documented in this encounter Additional Health Concerns Assessment Noted Time PHQ-9 Depression Total Score: 0 04/16/20 23 9:14 AM EDT documented as of this encounter Care Teams Perforator Relationship Specialty Start Date End Date Nydia Simon MD [address] [place] [id number] PCP - General Internal Medicine 04/11/23 happin! 05/27/24 documented as of this encounter
[2025-04-08 10:45] VITALS: BP 109/79; BP 110/70; PULSE 55; PULSE 83; RESP 14; TEMP 36.7; O2SAT 89; O2SAT 92; BMI 22.8
--- NOTE | 2025-04-08 10:47 | ECG_ITS ---
Test Reason : AMS Blood Pressure : */* mmHG Vent. Rate : 92 BPM Atrial Rate : 92 BPM P-R Int : 182 ms QRS Dur : 94 ms QT Int : 384 ms P-R-T Axes : 18 4 33 degrees QTcB Int : 474 ms Artifact in tracing Normal sinus rhythm Cannot rule out Inferior infarct , age undetermined Abnormal ECG When compared with ECG of 22-Dec-2024 23:22, No significant changes seen Referred By: Steff Sanchez Electronically Signed By: JUAN WARD
[2025-04-08 10:53] VITALS: BMI 22.8
--- NOTE | 2025-04-08 10:56 | ED.AMS ---
HPI - Altered Mental Status General Chief Complaint: Altered Mental Status Stated Complaint: S/O UNRESPONSIVENESS RESOLVED PER EMS Time Seen by Provider: 04/08/25 10:47 Source: EMS Mode of arrival: EMS Limitations: altered mental status History of Present Illness ED Provider: Dr. Con Abdullahi HPI narrative: 69-year-old male with a past medical history significant for dementia with agitation and delirium, COPD, alcohol use disorder with history of alcohol withdrawal, BPH, who was at his PCP's office for routine visit when he had a syncopal episode with altered level of consciousness. Patient is somnolent, appears weak, speech is soft and comprehensible but dysarthric, he was able to tell me his name and answer some questions. According to the paramedics the patient became hypotensive and bradycardic in his PC V office and then had a syncopal episode. EMS report that his heart rate was 55 and blood pressure was 100/72 and he was given atropine 1 mg IV. He did receive Narcan 1 mg IV by EMS he had no change. On presentation in the emergency department appears weak, altered, had pinpoint pupils and was given 2 doses of intranasal Narcan 4 mg with no significant change in his altered mental status. Related Data Home Medications ?Medication ?Instructions ?Recorded ?Confirmed atorvastatin 40 mg tablet 40 mg PO DAILY 12/23/24 12/23/24 clopidogrel 75 mg tablet 75 mg PO DAILY 12/23/24 12/23/24 multivitamin with folic acid 400 1 tab PO DAILY 12/23/24 12/23/24 mcg tablet (Daily-Gricelda (with folic acid)) Previous Rx's ?Medication ?Instructions ?Recorded aspirin 81 mg chewable tablet 81 mg PO DAILY #30 tabs 12/25/24 quetiapine 25 mg tablet 25 mg PO TID PRN agitation #90 tabs 12/25/24 thiamine HCl (vitamin B1) 100 mg 100 mg PO DAILY #30 tabs 12/25/24 tablet Allergies Allergy/AdvReac Type Severity Reaction Status Date / Time No Known Allergies Allergy Verified 04/08/25 11:21 Review of Systems Review of Systems: Yes all other systems are reviewed and are negative PMFSH Past Medical History Medical History (Updated 04/08/25 @ 16:17 by Con Abdullahi MD) Recent cerebrovascular accident Dementia Alcohol use disorder HTN (hypertension) Surgical History Hx of abdominal surgery Social History Social History (System 12/15/24 @ 14:38 by Gini Zamorano) Household Members: Unknown / Unable to assess Do you presently have visiting nurse or other home services: No Unable to assess alcohol history related to: Refusing to respond Alcohol intake: current Alcohol intake frequency: 0-2 drinks per day Alcohol type: beer Comment: sitter at bedside Patient Tobacco Use Status: Never used Tobacco Substance Use Type: Marijuana Advance Directives: Yes Advance Directives on File: Yes Advance Directives Date on File: 05/20/24 service: No Physical Exam ED Vital Signs: Vital Signs - 24 hr 04/08/25 10:45 04/08/25 11:24 04/08/25 12:06 Temperature 98.0 F Pulse Rate 83 86 76 Respiratory Rate 14 14 16 Blood Pressure 109/79 109/74 117/74 Pulse Oximetry 89 L 92 94 Oxygen Delivery Method Room Air Nasal Cannula Room Air Oxygen Flow Rate 2 04/08/25 13:55 Temperature 97.4 F Pulse Rate 90 Respiratory Rate 18 Blood Pressure 119/72 Pulse Oximetry 95 Oxygen Delivery Method Room Air Oxygen Flow Rate BMI result Body Mass Index 22.8 Exam: General: Appears weak, somnolent,, soft dysarthric comprehensible speech, oriented to person only Head: Normocephalic, atraumatic EENT: Pupils were pinpoint, sclera and conjunctiva are normal, mouth with no erythema or exudates Neck: Supple, no adenopathy Lung: breath sounds symmetric, no wheezing, no rales and no rhonchi Chest: symmetric movement, nontender Heart: regular rate and rhythm, normal S1, S2 no murmurs or rubs Abdomen: soft, non-tender, nondistended, normal bowel sounds Back: no vertebral tenderness, no CVAT Extremities: no deformities, moves all extremities symmetrically, no edema Neuro: Limited exam secondary to weakness and altered mental status Psych: cooperative Medications Administered Discontinued Medications Generic Name Dose Route Start Last Admin Trade Name Freq PRN Reason Stop Dose Admin Sodium Chloride 2,226 mls @ 2,226 mls/hr 04/08/25 10:56 04/08/25 12:30 Ns 30 ml/kg infuse over 1 hr (2226 ml) 04/08/25 11:55 Infused IV Infusion .Q1H STA Naloxone HCl 4 mg 04/08/25 11:32 04/08/25 11:34 Naloxone Hcl Nasal 4 Mg [place] NOSTRILALT 04/08/25 11:33 4 mg ONCE ONE Administration Naloxone HCl 4 mg 04/08/25 11:34 04/08/25 11:37 Naloxone Hcl Nasal 4 Mg [place] NOSTRILALT 04/08/25 11:35 4 mg ONCE ONE Administration Medical Decision Making Medical Decision Making MDM Narrative: 69-year-old male with a past medical history significant for dementia with agitation and delirium, COPD, alcohol use disorder with history of alcohol withdrawal, BPH, who was at his PCP's office for routine visit when he had a syncopal episode with altered level of consciousness. Patient is somnolent, appears weak, speech is soft and comprehensible but dysarthric, he was able to tell me his name and answer some questions. 13:17 Differential diagnosis: ?Includes but is not limited to myocardial infarction, myocardial ischemia, arrhythmia, hypotension, vasovagal syncope stroke, intracranial bleed, anemia, electrolyte abnormalities, alcohol intoxication, drug use Course: 13:17 My independent interpretation patient's is as follows: WBC elevated 11,800. H&H normal. Platelet count elevated 507-chronic. PT INR elevated 13.6 and 1.2. Glucose elevated 129. Troponin was below detectable limits. Lactic acid was normal at 1.5. TSH was normal at 9.64 with a normal T4 0.77-most likely consistent with euthyroid disease. VBG was normal. CT of the brain revealed no acute abnormalities. Chest x-ray was interpreted by the radiologist as right middle lobe and left lateral lung base opacities could represent atelectasis or pneumonia. Patient's presentation however is not really consistent with pneumonia therefore I ordered a CT chest without IV contrast to further evaluate this finding. The patient is currently awake and appears to be in his baseline. At this time I believe that he may have had a vasovagal syncopal event as the cause of his altered mental status, low blood pressure and low heart rate. 16:10 CT scan of the patient's chest revealed no evidence of pneumonia which is reassuring. Urinalysis was negative. The patient is back in his baseline. At this time I suspect that the patient had a vasovagal syncopal event and I did discuss this with his sister. At this time, I do not think that he needs hospitalization for a syncopal workup and I did discuss this with the sister. She is in agreement and wants to take the patient home especially since whenever he gets hospitalized he has behavioral issues that are difficult to control. Differential Diagnosis Differential Diagnoses: The differential diagnosis associated with the presentation includes (See above) Admission/Observation Consideration of admission/observation: Escalation of care including admission/observation considered (Yes) Lab Data MDM Lab Attestation statement: I reviewed the patient's lab results. 04/08/25 11:11 04/08/25 11:11 Labs: Lab Results 04/08/25 04/08/25 04/08/25 Range/Units 11:11 11:17 11:35 WBC 11.8 H (4.8-10.8) X10*3/uL RBC 4.83 (4.60-5.80) X10*6/uL Hgb 14.5 (14.0-18.0) g/dl Hct 42.4 (42.0-52.0) % MCV 87.8 (80.0-98.0) fL MCH 30.0 (27.0-33.0) pg MCHC 34.2 (31.0-36.0) g/dl RDW 15.6 (11.0-16.0) % Plt Count 507 H (160-400) X10*3/uL MPV 9.8 (9.4-12.4) fL Immature Gran % (Auto) 0.3 (0.0-0.4) % Neut % (Auto) 45.4 (45-73) % Lymph % (Auto) 45.5 H (20-40) % [place]eth % (Auto) 7.0 (2-11) % Eos % (Auto) 0.8 (0-4) % Baso % (Auto) 1.0 (0-2) % Lymph # (Auto) 5.4 H (1.2-4.9) X10*3/uL [place] # (Auto) 0.8 (0.1-1.2) X10*3/uL Eos # (Auto) 0.1 (0.0-0.4) X10*3/uL Baso # (Auto) 0.1 (0.0-0.2) X10*3/uL Abs Immat Gran (auto) 0.04 H (0.00-0.03) X10*3/uL Absolute Neuts (auto) 5.4 (2.0-8.3) x10*3/uL Absolute Nucleated RBC 0.000 (0.0-0.012) X10*3/uL Nucleated RBC % (auto) 0.0 (0.0-0.2) /100WBC Smear Tech's Comments VERIFIED PT 13.6 H (10.9-12.4) SEC INR 1.2 H (0.9-1.1) APTT 30.8 (26.7-34.1) SEC VBG pH 7.34 (7.32-7.43) VBG pCO2 39 mmHg VBG pO2 48 mmHg VBG HCO3 21 L (22-26) mmol/L VBG O2 Saturation 71.0 % VBG Base Excess -4.0 mmol/L Sodium 137 (135-145) mmol/L Potassium 3.9 (3.3-5.1) mmol/L Chloride 108 (96-108) mmol/L Carbon Dioxide 23 (22-29) mmol/L Anion Gap 10 L (12-20) BUN 11 (9-16) mg/dL Creatinine 0.88 (0.5-1.4) mg/dL Estim Creat Clear Calc 80.8 Estimated GFR > 60 Random Glucose 129 H (60-115) mg/dL Lactic Acid 1.5 (0.5-2.0) mmol/L Calcium 9.1 (8.4-10.2) mg/dL Magnesium 2.0 (1.6-2.6) mg/dL Total Bilirubin 0.6 (0.0-1.0) mg/dL AST 24 (5-37) U/L ALT 12 (0-40) U/L Alkaline Phosphatase 59 (39-117) U/L Total Creatine Kinase 101 (38-174) U/L Troponin I High Sens < 2.7 D (<3.5-35.0) ng/L NT-Pro-B Natriuret Pep 53.4 (<300) pg/mL Total Protein 7.4 (6.5-8.0) g/dL Albumin 4.3 (3.5-5.0) g/dL Lipase 23 (8-78) U/L TSH 9.64 H (0.32-4.0) uIU/mL Free T4 0.77 (0.71-1.85) ng/dL Hold Yellow Top See Note Urine Color Urine Appearance Urine pH (5.0-9.0) Ur Specific [place] (1.005-1.025) Urine Protein (Neg-Trace) mg/dL Urine Glucose (UA) (Negative) mg/dL Urine Ketones (Negative) mg/dL Urine Blood (Negative) Urine Nitrite (Negative) Ur Leukocyte Esterase (Negative) Urine Opiates Screen (Not Detect) Ur Buprenorphine Scrn (Not Detect) ng/mL Ur Oxycodone Screen (Not Detect) ng/mL Urine Methadone Screen (Not Detect) ng/mL Urine Fentanyl Screen (Not Detect) Ur Barbiturates Screen (Not Detect) Valproic Acid (50.0-100.0) mcg/mL Ur Phencyclidine Scrn (Not Detect) Ur Amphetamines Screen (Not Detect) U Benzodiazepines Scrn (Not Detect) Urine Cocaine Screen (Not Detect) U Marijuana (THC) Screen (Not Detect) Ethyl Alcohol < 10 mg/dL COVID-19 (TUYET) (Negative) COVID-19 Clin Com Influenza Type A (JERI) Negative (Negative) Influenza Type B (JERI) Negative (Negative) Influenza A & B Note See Note 04/08/25 04/08/25 Range/Units 11:54 14:47 WBC (4.8-10.8) X10*3/uL RBC (4.60-5.80) X10*6/uL Hgb (14.0-18.0) g/dl Hct (42.0-52.0) % MCV (80.0-98.0) fL MCH (27.0-33.0) pg MCHC (31.0-36.0) g/dl RDW (11.0-16.0) % Plt Count (160-400) X10*3/uL MPV (9.4-12.4) fL Immature Gran % (Auto) (0.0-0.4) % Neut % (Auto) (45-73) % Lymph % (Auto) (20-40) % [place] % (Auto) (2-11) % Eos % (Auto) (0-4) % Baso % (Auto) (0-2) % Lymph # (Auto) (1.2-4.9) X10*3/uL [place] # (Auto) (0.1-1.2) X10*3/uL Eos # (Auto) (0.0-0.4) X10*3/uL Baso # (Auto) (0.0-0.2) X10*3/uL Abs Immat Gran (auto) (0.00-0.03) X10*3/uL Absolute Neuts (auto) (2.0-8.3) x10*3/uL Absolute Nucleated RBC (0.0-0.012) X10*3/uL Nucleated RBC % (auto) (0.0-0.2) /100WBC Smear Tech's Comments PT (10.9-12.4) SEC INR (0.9-1.1) APTT (26.7-34.1) SEC VBG pH (7.32-7.43) VBG pCO2 mmHg VBG pO2 mmHg VBG HCO3 (22-26) mmol/L VBG O2 Saturation % VBG Base Excess mmol/L Sodium (135-145) mmol/L Potassium (3.3-5.1) mmol/L Chloride (96-108) mmol/L Carbon Dioxide (22-29) mmol/L Anion Gap (12-20) BUN (9-16) mg/dL Creatinine (0.5-1.4) mg/dL Estim Creat Clear Calc Estimated GFR Random Glucose (60-115) mg/dL Lactic Acid (0.5-2.0) mmol/L Calcium (8.4-10.2) mg/dL Magnesium (1.6-2.6) mg/dL Total Bilirubin (0.0-1.0) mg/dL AST (5-37) U/L ALT (0-40) U/L Alkaline Phosphatase (39-117) U/L Total Creatine Kinase (38-174) U/L Troponin I High Sens (<3.5-35.0) ng/L NT-Pro-B Natriuret Pep (<300) pg/mL Total Protein (6.5-8.0) g/dL Albumin (3.5-5.0) g/dL Lipase (8-78) U/L TSH (0.32-4.0) uIU/mL Free T4 (0.71-1.85) ng/dL Hold Yellow Top Urine Color Yellow Urine Appearance Clear Urine pH 6.0 (5.0-9.0) Ur Specific [place] <= 1.005 (1.005-1.025) Urine Protein Negative (Neg-Trace) mg/dL Urine Glucose (UA) Negative (Negative) mg/dL Urine Ketones Trace (Negative) mg/dL Urine Blood Negative (Negative) Urine Nitrite Negative (Negative) Ur Leukocyte Esterase Negative (Negative) Urine Opiates Screen Not Detected (Not Detect) Ur Buprenorphine Scrn Not Detected (Not Detect) ng/mL Ur Oxycodone Screen Not Detected (Not Detect) ng/mL Urine Methadone Screen Not Detected (Not Detect) ng/mL Urine Fentanyl Screen Not Detected (Not Detect) Ur Barbiturates Screen Not Detected (Not Detect) Valproic Acid < 12.5 L (50.0-100.0) mcg/mL Ur Phencyclidine Scrn Not Detected (Not Detect) Ur Amphetamines Screen Not Detected (Not Detect) U Benzodiazepines Scrn Not Detected (Not Detect) Urine Cocaine Screen Not Detected (Not Detect) U Marijuana (THC) Screen Not Detected (Not Detect) Ethyl Alcohol mg/dL COVID-19 (TUYET) Negative (Negative) COVID-19 Clin Com See Note Influenza Type A (JERI) (Negative) Influenza Type B (JEIR) (Negative) Influenza A & B Note Independent Interpretation I performed an independent interpretation of an: EKG Interpretation: My independent interpretation of the patient's 12 EKG done on 04/08/2025 at 10:48 hours is as follows: Normal sinus rhythm rate of 92, normal IA interval, QRS duration and QTC interval, Q-wave in lead 3 and V1, no ST segment elevation, no ST segment depression, no significant T-wave abnormalities Radiology Impression Discussion of test interpretation with radiology: I have reviewed the radiologist's reading. Radiologist Impression: XR chest 1V IMPRESSION: Right middle lobe and left lateral lung base opacities could represent atelectasis or pneumonia. Borderline cardiomegaly. Electronically signed by: Edenilson Ren MD 04/08/2025 11:[address] head/brain wo IV con IMPRESSION: No acute intracranial abnormality. Stable chronic ischemic changes. Electronically signed by: Edenilson Ren MD 04/08/2025 11:[address] chest wo IV con IMPRESSION: 1. There is no evidence of pneumonia. There is linear type atelectasis in both lung bases. Lungs are otherwise clear. 2. Mild cardiac enlargement. Moderate degree of coronary calcifications. 3. Additional ancillary findings as discussed in the body of the report. Electronically signed by: Frank Hurt MD 04/08/2025 03:04 PM EDT Independent Historian Clinical information obtained from an independent historian. History obtained from or confirmed by: Other (Sister) External Record Review External record reviewed: Inpatient record Chronic Conditions Patient?s care impacted by: Diabetes and Other (Hyperlipidemia, dementia) Critical Care Time Critical Care Time Critical Care Time: Yes Total Critical Care Time: 45 Attestation: Critical Care: The patient was critically ill with a high probability of imminent or life threatening deterioration. I spent greater than 30 minutes of discontinuous time evaluating the patient,delivering critical care at the bedside, discussing and evaluating pertinent data with consultants. Critical care time does not include time spent performing separately billable procedures or teaching. Total time spent performing critical care was 45 minutes. Discharge Plan Discharge Clinical Impression: Vasovagal syncopes, Acute alteration in mental status Patient Disposition: Home, Self-Care Additional Instructions: Your blood work was unremarkable CT brain revealed no stroke, bleeding in the brain or other abnormalities. Chest x-ray was concerning for possible pneumonia however CT scan of the chest revealed no pneumonia. This has a much better test for pneumonia. Also, your symptoms and presentation are not consistent with pneumonia. You most likely had a syncopal event (fainting event). You were treated here in the emergency department with 2 L of fluid IV in you are now back to your baseline which is very reassuring. Continue taking medications as prescribed by your providers. Follow-up with your doctor in 2 days. Please return to the emergency department if your symptoms get worse or if you develop any symptoms that are concerning to you. Prescriptions: No Action atorvastatin 40 mg tablet 40 mg PO DAILY clopidogrel 75 mg tablet 75 mg PO DAILY multivitamin with folic acid [Daily-Gricelda (with folic acid)] 400 mcg tablet 1 tab PO DAILY aspirin 81 mg Tablet,Chewable 81 mg PO DAILY Qty: 30 0RF thiamine HCl (vitamin B1) 100 mg tablet 100 mg PO DAILY Qty: 30 0RF quetiapine 25 mg tablet 25 mg PO TID PRN (Reason: agitation) Qty: 90 0RF Print Language: Maltese
[2025-04-08 11:22] LABS: Hematocrit 42.4 % (42.0-52.0); Hemoglobin 14.5 g/dl (14.0-18.0); Imm Gran Abs Auto 0.04 X10*3/uL (0.00-0.03); Imm Gran Pct Auto 0.3 % (0.0-0.4); Lymphocytes Absolute Auto 5.4 X10*3/uL (1.2-4.9); MANUAL DIFF FLAG SCAN; Mean Corpuscular HGB Conc 34.2 g/dl (31.0-36.0); Mean Corpuscular Hemoglobin 30.0 pg (27.0-33.0); Mean Corpuscular Volume 87.8 fL (80.0-98.0); NRBC Abs Auto 0.000 X10*3/uL (0.0-0.012); NRBC Pct Auto 0.0 /100WBC (0.0-0.2); Platelet Count 507 X10*3/uL (160-400); Red Blood Count 4.83 X10*6/uL (4.60-5.80); SCAN SMEAR FLAG 1; White Blood Count 11.8 X10*3/uL (4.8-10.8)
[2025-04-08 11:24] VITALS: BP 109/74; PULSE 86; RESP 14; O2SAT 92
--- NOTE | 2025-04-08 11:25 | PC.NURSE ---
Pt is answering questions. No result from narcan. Fam at bedside. pupils remain 2-3mm.
--- NOTE | 2025-04-08 11:27 | PC.NURSE ---
unable to complete full neuro assessment b/c patient isn't physically able. generally weak
[2025-04-08 11:28] LABS: INTERNATIONAL NORM RATIO 1.2 (0.9-1.1); Prothrombin Time 13.6 SEC (10.9-12.4)
[2025-04-08] MEDS: SODIUM CHLORIDE 2226 ML IV (11:29)
[2025-04-08 11:31] LABS: Partial Thromboplastin Time 30.8 SEC (26.7-34.1)
[2025-04-08] MEDS: Naloxone HCl Nasal 4 MG SPRAY NOSTRILALT ×2 (11:34→11:37)
[2025-04-08 11:39] LABS: NT Pro B Type Natriuretic Pept 53.4 pg/mL (<300)
[2025-04-08 11:40] LABS: Venous Blood Gas Refer to POC result
[2025-04-08 11:40] LABS: VBG HCO3 21 mmol/L (22-26); VBG O2 % Saturation 71.0 %
[2025-04-08 11:43] LABS: Alanine Aminotransferase 12 U/L (0-40); Albumin Level 4.3 g/dL (3.5-5.0); Alkaline Phosphatase 59 U/L (39-117); Anion Gap 10 (12-20); Aspartate Amino Transferase 24 U/L (5-37); Blood Urea Nitrogen 11 mg/dL (9-16); Calcium 9.1 mg/dL (8.4-10.2); Carbon Dioxide 23 mmol/L (22-29); Chloride 108 mmol/L (96-108); Creatinine Clr Calc Pharmacy 80.8; Estimated Glomerular Filt Rate > 60; Lipase 23 U/L (8-78); Magnesium 2.0 mg/dL (1.6-2.6); Potassium 3.9 mmol/L (3.3-5.1); Sodium 137 mmol/L (135-145); Total Protein 7.4 g/dL (6.5-8.0)
[2025-04-08 12:01] LABS: IDNOW Serial# 08D9AD1C; Influenza B2 Negative (Negative)
[2025-04-08 12:03] LABS: Troponin-I High Sensitivity < 2.7 ng/L (<3.5-35.0)
[2025-04-08 12:06] VITALS: BP 117/74; PULSE 76; RESP 16; O2SAT 94
--- OUTSIDE RECORDS SUMMARY | 2025-04-08 12:17 | XMS_ITS | Encounter Summary ---
Author Organization [employer] Address [address] [place] [address] Care Team Providers Care Plating And Point Assembly Supervisor Name Role Phone Nydia Simon MD Primary Care Pro vider Reason for Visit * Reason Onset Date Comments chart prep 04/07/2025 Encounter Details Date Type Department Care Team ([facility] st Contact Info) Description 04/07/2025 Telephone [facility] MEDICINE [address] [place] [address] Nydia Simon MD [address] [place] [address] chart prep Social History Tobacco Use Types Packs/Day Years [...] AM EDT documented as of this encounter Miscellaneous Notes * Telephone Encounter - Angel Niño [place] - 04/07/2025 9:42 AM EDT Chart Prep Labs: not done Images: done Referrals: complete Vaccines due: Covid, Flu, and Zoster Screenings: colonoscopy Overdue care gaps: Disability screen documented in this encounter Plan of Treatment Upcoming Encounters Date Type Department Care Team (Late st Contact Info) Description 07/26/2025 2:30 PM EST Office Visit [facility] OPTOMETRY [address] [place] [address] TarkaBrianna, OD [address] [place] [address] documented as of this encounter Visit Diagnoses Not on filedocumented in this encounter Additional Health Concerns Assessment Noted Time PHQ-9 Depression Total Score: 0 04/16/20 23 9:14 AM EDT documented as of this encounter Care Teams Plating And Point Assembly Supervisor Relationship Specialty Start Date End Date Nydia Simon MD [address] [place] [address] [phone] PCP - General Internal Medicine 04/11/23 [employer] 05/27/24 documented as of this encounter
--- OUTSIDE RECORDS SUMMARY | 2025-04-08 12:17 | XMS_ITS | Encounter Summary ---
Author Organization [employer] Address [address] [place] [address] Care Team Providers Care Adjunct Professor Name Role Phone Nydia Simon MD Primary Care Pro vider Reason for Visit * Reason Comments Med Refill Encounter Details Date Type Department Care Team ([facility] st Contact Info) Description 03/05/2025 Refill [facility] MED[facility]INE [address] [place] [address] Nydia Gotti MD [address] [place] [address] Social History Tobacco Use Types Packs/Day Years [...] your housing situation today? I have uriel cande 02/04/[address] you li [...] AM EDT documented as of this encounter Plan of Treatment Upcoming Encounters Date Type Department Care Team (Late st Contact Info) Description 07/26/2025 2:30 PM EST Office Visit [facility] OPTOMETRY [address] [place], [place] [phone] TarBrianna marinelli, OD [address] [place], [place] [phone] documented as of this encounter Visit Diagnoses Not on filedocumented in this encounter Additional Health Concerns Assessment Noted Time PHQ-9 Depression Total Score: 0 04/16/20 23 9:14 AM EDT documented as of this encounter Care Teams Adjunct Professor Relationship Specialty Start Date End Date Nydia Simon MD [address] [place] [id number] PCP - General Internal Medicine 04/11/23 [employer] 05/27/24 documented as of this encounter
--- OUTSIDE RECORDS SUMMARY | 2025-04-08 12:17 | XMS_ITS | Encounter Summary ---
Author Organization [employer] Address [address] [place] [address] Care Team Providers Care Construction Plumber Name Role Phone Nydia Simon MD Primary Care Pro vider Reason for Visit * Reason Onset Date Comments RAPID ASSIST 04/08/2025 Encounter Details Date Type Department Care Team ([facility] st Contact Info) Description 04/08/2025 Telephone [facility] MEDICINE [address] [place] [address] Nella Little, KAYLA [address] [place] [address] RAPID ASSIST Social History Tobacco Use Types Packs/Day Years [...] encounter Miscellaneous Notes * Telephone Encounter - Nella Little RN - 04/08/2025 11:10 AM EDT ASSESSMENT: Joao Nicole presents to [facility] for routine follow up. Was in the exam room withhis [id number] and PCP Dr Thurston. Delmy Thurston was examining pt's hand at which time he became unresponsive and diaphoretic. A rapid response was initiated within Green Team 04/08/2025 at 10:06AM. Provider reported SpO2 76% prior to RN arriving on scene. Pertinent medical history: Pt had a stoke ~3 months ago. Responding provider: Dr Nydia Eugene Responding Staff: KAYLA Marinelli RN Lizzette Aguila, BRYANT Lee () VITALS: Time: 10:11 AM, BP: 87/68 left arm Manual, HR: 49 regular rate and rhythm, RR: 14 , O2 sat: 93% on 2 Liters nasal cannula BS: 97 fasting, pain level: 0, location: N/A. Time: 10:18 AM, HR: 55, O2 sat: 96% on 2 Liters nasal canula O2 MEDICATION/O2 ADMINISTRATION: Oxygen administered: 2 liters/min via nasal cannula, time 10:10am. tolerated well, improved SpO2. PLAN: EMS called at 10:08 AM. Verbal report given to EMS: Yes Joao Nicole transported to [facility] at 10:28am. Family member notified: Yes, name/relationship: Nelsy (pt's sister) notified by her SO who was there during this rapid assist Task sent to PCP team for status check: No, N/A. Happen on team. We will continue to follow and check on pt. Nella Little RN documented in this encounter Plan of Treatment Upcoming Encounters Date Type Department Care Team (Late st Contact Info) Description 07/26/2025 2:30 PM EST Office Visit [facility] OPTOMETRY [address] [place] [address] TarBrianna marinelli, OD [address] [place], [place] [phone] documented as of this encounter Visit Diagnoses Not on filedocumented in this encounter Additional Health Concerns Assessment Noted Time PHQ-9 Depression Total Score: 0 04/16/20 23 9:14 AM EDT documented as of this encounter Care Teams Construction Plumber Relationship Specialty Start Date End Date Nydia Simon MD [address] [place] [phone] PCP - General Internal Medicine 04/11/23 [email or web address] 05/27/24 documented as of this encounter
--- OUTSIDE RECORDS SUMMARY | 2025-04-08 12:17 | XMS_ITS | Encounter Summary ---
Author Organization [employer] Address [address] [facility] 7t [place] [address] Care Team Providers Care Machine I Coremaker Name Role Phone Nydia Simon MD Primary Care Pro vider Reason for Visit * Reason Onset Date Comments Hospital Follow-up 05/21/2024 Encounter Details Date Type Department Care Team (Late st Contact Info) Description 05/21/2024 Telephone [facility] [address] [place] [address] Nydia Simon MD [address] [place] [address] Hospital Follow-up Social History Tobacco Use Types Packs/Day Years Used Date Smoking Tobacco: Never Passive Smoke Exposure: Never Smokeless Tobacco: Never Comments:Started 13 years of age until 61 y of age -stopped 7 years ago) smoke for 48 years) -used to smoke 10 cig a day--PQT a year calc 24 Alcohol Use Standard Drinks/Week Comments Not Asked 0 (1 standard drink = 0.6 oz pure alcohol) hx of heavy drinking -beers,vodka-stopped 20 y ago--states now drinking beers 40 onz Depression Answer Date Recorded Patient Health Questionnaire-9 [...] encounter Miscellaneous Notes * Telephone Encounter - Martin Hong - 05/21/2024 11:46 AM EDT Tc from pt requesting a HDF appt. Hospital: [facility] Date of admission: 05/15/24 Discharge date: 05/19/24 Diagnosed: Dementia documented in this encounter Plan of Treatment Upcoming Encounters Date Type Department Care Team (Late st Contact Info) Description 07/26/2025 2:30 PM EST Office Visit [facility] [address] [place] [address] Brianna Cedeño, OD [address] [place] [address] documented as of this encounter Visit Diagnoses Not on filedocumented in this encounter Additional Health Concerns Assessment Noted Time PHQ-9 Depression Total Score: 0 04/16/20 9:14 AM EDT documented as of this encounter Care Teams Machine I Coremaker Relationship Specialty Start Date End Date Nydia Simon MD [address] [place] [id number] PCP - General Internal Medicine 04/11/23 Shawarmanji 05/27/24 documented as of this encounter
--- OUTSIDE RECORDS SUMMARY | 2025-04-08 12:17 | XMS_ITS | Clinical Summary ---
Author Organization [employer] Address [address] [facility] 7t [place] [address] Care Team Providers Care Associate Professor Of Music Name Role Phone Nydia Simon MD Primary Care Pro vider Allergies No known active allergies Medications Blood Pressure Monitor kit Check blood pressure twice a wee. Dx hypertension 1 kit 3 Active Multiple Vitamin (multivitamin) tablet Take 1 tablet by mouth Once per day. PLEASE make sure includes thiamine, Vit B12 and folic acid -thanks 90 tablet 1 5 Active atorvastatin (Lipitor) 40 MG tablet Take 1 tablet (40 mg) by mouth Once per day. 90 tablet 5 Active QUEtiapine (SEROquel) 50 MG tablet Take 1 tablet (50 mg) by mouth at bedtime. 90 tablet 5 Active thiamine (Vitamin B-1) 100 MG tablet Take 1 tablet (100 mg) by mouth Once per day. 90 tablet 5 Active Aspirin Low Dose 81 MG chewable tablet Chew 1 tablet (81 mg) Once per day. 90 tablet 5 Active Plavix 75 MG tablet Take 75 mg by mouth. 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 History of tobacco use 05/19/2023 Transaminitis 05/19/2023 Hx of gastric ulcer 05/19/2023 Hypertension 05/19/2023 Assessment & Plan (06/10/2024 12:25 PM EST): Controlled with current interventions Health care maintenance 05/19/2023 Resolved Problems Problem Noted Date Diagnosed Date Resolved Date Alcohol use 05/19/2023 02/05/2025 Encounters Date Type Department Care Team Description 04/08/2025 9:30 AM EDT Office Visit [address] [address] Nydia Simon MD Colon cancer screening (Primary Dx); Hx of gastric ulcer 04/08/[address] [address] Nella Little RN RAPID ASSIST 04/08/2025 Travel 04/07/[address] [address] Nydia Simon MD chart prep 03/22/[address] [address] Nydia Simon MD Med Refill 03/05/[address] [address] Nydia Gotti MD 02/10/[address] [address] Nydia Simon MD Appointment Request 02/04/2025 9:30 AM EDT Office Visit [address] [address] Nydia Simon MD History of tobacco use (Primary Dx); Health care maintenance; Transaminitis; Hypertension, unspecified type; Hospital discharge follow-up; Severe vascular dementia, unspecified whether behavioral, psychotic, or mood disturbance or anxiety (CMS/HCC); History of stroke; Abnormal CXR 02/04/2025 Travel 02/03/2025 Telephone [facility] MED[facility] [address] [place] [address] Nydia Simon MD chart prep 01/14/2025 10:30 AM EDT Clinical Support [facility] [address] [place] [address] Karen Menchaca RN Poor memory 01/14/2025 Travel from Last 3 Months Immunizations Immunization Administration [...] Mass Index 26.94 04/08/2025 9:38 AM EDT Plan of Treatment Upcoming Encounters Date Type Department Care Team (Late st Contact Info) Description 07/26/2025 2:30 PM EST Office Visit [facility] OPTOMETRY [address] [place] [address] Brianna Cedeño, OD [address] [place] [address] Health Maintenance Due Date Last Done Comments CT Colonography 1954 Colonoscopy 1954 Colorectal Cancer Screening 1954 FIT DNA/Cologuard 1954 FIT 1954 FOBT 1954 Sigmoidoscopy 1954 Zoster Vaccines (1 of 2) 2004 COVID-19 Vaccine ( - 2023-2 5 season) 2025 Influenza Vaccine (#1) 2025 05/19/2023 Alcohol/Substance Use Screening 12/08/2025 12/08/2024 Depression Screening 02/04/2026 02/04/2025, 04/16/2023 SDOH Screening 02/04/2026 02/04/2025 Tobacco Screening 04/08/2026 04/08/2025 Lipid Panel 04/16/2028 04/16/2023 RSV Patients and [...] AM EDT) Hepatitis C Antibody Nonreactive Nonreactive [facility] Comment:Antibodies to HCV no t detected; does not exclude early acuteHCV infection. Blood Venous blood specimen / Unknown 04/16/2023 10:38 AM EDT 04/16/2023 1:07 PM EDT us Nydia Eugene MD LAB BLOOD ORDERAB LES Final Result Performing Organization Address City/[facility]/ZIP Co de Phone Number [facility] [address] [place] [address] [phone] * (ABNORMAL) Lipid Panel, Standard (04/16/2023 10:38 AM EDT) Triglycerides 63 <150 mg/dL [facility] Comment:Desirable Triglyceri de: less than 150 mg/dLBorderline High Triglyceride 150-199 mg/dLHigh Triglyceride: 200-499 mg/dLVery High Triglyceride: greater than or equal to 5OO mg/dL Cholesterol 183 <200 mg/dL [facility] Comment:Desirable Cholestero l: less than 200 mg/dLBorderline High Cholesterol: 200-239 mg/dLHigh Cholesterol: greater than 239 mg/dL LDL Cholesterol Calculated 116(H) <100 mg/dL [facility] Comment:Desirable LDL: less than 100 mg/dLNear Optimal/Above Optimal LDL: 110- 129 mg/dLBorderline High LDL: 130-159 mg/dLHigh LDL: 160-189 mg/dLVery High LDL: greater than or equal to 190 mg/dL HDL Cholesterol 55 >40 mg/dL [facility] Comment:Desirable HDL: great er than 40 mg/dL Note: This HDL assay may give artificially low results in patients with liver disease. Blood Venous blood specimen / Unknown 04/16/2023 10:38 AM EDT 04/16/2023 1:07 PM EDT us Nydia Eugene MD LAB BLOOD ORDERAB LES Final Result [facility] [address] [place] [address] [phone] from Last 3 Months or Most Recently Relevant to Health Maintenance [place] [address] [place] [address] STANDARD MEDICARE Care Teams Associate Professor Of Music Relationship Specialty Start Date End Date Nydia Simon MD [address] [place] [id number] PCP - General Internal Medicine 04/11/23 Doodle 05/27/24
--- OUTSIDE RECORDS SUMMARY | 2025-04-08 12:17 | XMS_ITS | Encounter Summary ---
Author Organization [employer] Address [address] [facility] 7t [place] [address] Care Team Providers Care Advertising Space Clerk Name Role Phone Nydia Simon MD Primary Care Pro vider Reason for Visit * Reason Onset Date Comments fyi 05/19/2024 Encounter Details Date Type Department Care Team ([facility] st Contact Info) Description 05/19/2024 Telephone [facility] MEDICINE [address] [place] [address] Nydia Simon MD [address] [place] [address] fyi Social History Tobacco Use Types Packs/Day Years [...] encounter Miscellaneous Notes * Telephone Encounter - Yesica Medina - 05/19/2024 3:44 PM EDT [facility] notifying pt will start home care services starting tomorrow 05/19/2024, Any questions callback Staci as she requests [phone] documented in this encounter Plan of Treatment Upcoming Encounters Date Type Department Care Team (Late st Contact Info) Description 07/26/2025 2:30 PM EST Office Visit [facility] OPTOMETRY [address] [place] [address] Brianna Cedeño, OD [address] [place] [address] documented as of this encounter Visit Diagnoses Not on filedocumented in this encounter Additional Health Concerns Assessment Noted Time PHQ-9 Depression Total Score: 0 04/16/20 9:14 AM EDT documented as of this encounter Care Teams Advertising Space Clerk Relationship Specialty Start Date End Date Nydia Simon MD [address] [place] [id number] PCP - General Internal Medicine 04/11/23 Fl[employer]info 05/27/24 documented as of this encounter
--- OUTSIDE RECORDS SUMMARY | 2025-04-08 12:17 | XMS_ITS | Encounter Summary ---
Author Organization [employer] Address [address] [facility] [address] 7[address] [place] [address] Care Team Providers Care Boilermaker Industrial Boilers Name Role Phone Nydia Simon MD Primary Care Pro vider Encounter Details Date Type Department Care Team (Latest Contact Info) Description 04/08/2025 Travel Social History Tobacco Use Types Packs/Day Years [...] is your housing situation today? I have urieljuan david castellon 02/04/[address] you [...] Description 07/26/2025 2:30 PM EST Office Visit [facility] OPTOMETRY [address] [place] [address] TarBrianna marinelli, OD [address] [place], [place] [phone] documented as of this encounter Visit Diagnoses Not on filedocumented in this encounter Additional Health Concerns Assessment Noted Time PHQ-9 Depression Total Score: 0 04/16/20 23 9:14 AM EDT documented as of this encounter Care Teams Boilermaker Industrial Boilers Relationship Specialty Start Date End Date Nydia Simon MD [address] [place] [id number] PCP - General Internal Medicine 04/11/23 [email or web address] 05/27/24 documented as of this encounter
--- OUTSIDE RECORDS SUMMARY | 2025-04-08 12:17 | XMS_ITS | Encounter Summary ---
Author Organization [employer] Address [address] [facility] 7t [place] [address] Care Team Providers Care Drum Printer Name Role Phone Nydia Simon MD Primary Care Pro vider Reason for Visit * Reason Onset Date Comments Med Refill 03/22/2025 Encounter Details Date Type Department Care Team (Late st Contact Info) Description 03/22/[address] [facility] MEDICINE [address] [place] [address] Nydia Simon MD [address] [place] [address] Med Refill Social History Tobacco Use Types Packs/Day Years [...] encounter Miscellaneous Notes * Telephone Encounter - Vandana Price LPN - 03/22/2025 10:05 AM EDT Script was sent to [facility] on 02/04/25 90 day supply. * Telephone Encounter - Reuben Elizalde - 03/22/2025 9:49 AM EDT TC from pt requesting medication refill. Medications needing refill : thiamine (Vitamin B-1) 100 MG tablet To be sent to: [id number] - [place] [id number] [facility] documented in this encounter Plan of Treatment Upcoming Encounters Date Type Department Care Team (Late st Contact Info) Description 07/26/2025 2:30 PM EST Office Visit [facility] OPTOMETRY [address] [place] [address] Brianna Cedeño, OD [address] [place] [address] documented as of this encounter Visit Diagnoses Not on filedocumented in this encounter Additional Health Concerns Assessment Noted Time PHQ-9 Depression Total Score: 0 04/16/20 23 9:14 AM EDT documented as of this encounter Care Teams Drum Printer Relationship Specialty Start Date End Date Nydia Simon MD [address] [place] [id number] PCP - General Internal Medicine 04/11/23 Pantea 05/27/24 documented as of this encounter
[2025-04-08 12:30] LABS: Free T4 (Free Thyroxine) 0.77 ng/dL (0.71-1.85)
[2025-04-08 13:55] VITALS: BP 119/72; PULSE 90; RESP 18; TEMP 36.3; O2SAT 95
--- NOTE | 2025-04-08 14:27 | PC.NURSE ---
Pt is alert, standing at bedside with mimal assist but unable to urinate. Clear speech . no unilat neuro deficits noted. skin pwd. NSR on monitor.
[2025-04-08 15:13] LABS: Appearance Urine Clear; Glucose Urine UA Negative (Negative); PH 6.0 (5.0-9.0); Specific Gravity - Urine <= 1.005 (1.005-1.025)
[2025-04-08 15:24] LABS: Cannabinoid Screen Urine Not Detected (Not Detect)
[2025-04-08 15:25] LABS: COVID-19 Test Negative (Negative); IDNOW Serial# 55D5AD1C
--- NOTE | 2025-04-08 16:13 | PC.NURSE ---
pt able to walk to bathroom with supervison only, slow steady gait
[2025-04-08 16:54] VITALS: BP 131/88; PULSE 63; RESP 16; TEMP 36.6; O2SAT 96
[2025-04-11 16:56] LABS: Glucose, Whole Blood 127 mg/dL (60-115)
== END 2025-04-08 16:56 | disposition home or self-care (01) ==
PROVIDERS: Emergency Provider Emergency Medicine Emergency Medical Services; PCP Internal Medicine
DX: R55 Syncope and collapse (principal); R41.82 Altered mental status, unspecified; R94.31 Abnormal electrocardiogram [ECG] [EKG]; R06.02 Shortness of breath; Z51.81 Encounter for therapeutic drug level monitoring; Z79.899 Other long term (current) drug therapy; Z11.52 Encounter for screening for COVID-19
CPT/HCPCS: 36415; 70450; 71045; 71250; 80053; 80164; 80307; 81003; 82550; 82803; 82947; 83605; 83690; 83735; 83880; 84439; 84443; 84484; 85025; 85610; 85730; 87040; 87502; 87635; 93005; 96360; 99284

== ENCOUNTER → 2025-04-08 10:47 | Outpatient (BNV) | payer MEDICARE, MEDICAID, SELFPAY | PROVIDERS: Emergency Provider Emergency Medicine Emergency Medical Services; PCP Internal Medicine; Visit Provider Internal Medicine | DX: R94.31 Abnormal electrocardiogram [ECG] [EKG] (principal); R41.82 Altered mental status, unspecified | CPT/HCPCS: 93010 ==

== ENCOUNTER → 2025-04-08 10:57 | Outpatient (BNV) | payer MEDICARE, MEDICAID, SELFPAY | PROVIDERS: Emergency Provider Emergency Medicine Emergency Medical Services; PCP Internal Medicine; Visit Provider Radiology Diagnostic Radiology | DX: J98.11 Atelectasis (principal); I51.7 Cardiomegaly; I67.82 Cerebral ischemia; R91.8 Other nonspecific abnormal finding of lung field | CPT/HCPCS: 71250 ==

== ENCOUNTER 2025-04-11 09:24 | Outpatient (AMB) | payer MEDICARE, MEDICAID, SELFPAY ==
--- OUTSIDE RECORDS SUMMARY | 2025-04-08 09:30 | XMS_ITS | Encounter Summary ---
Author Organization [employer] Address [address] [place] [address] 7 [place] [address] Care Team Providers Care Oracle Sql Developer Name Role Phone Nydia Simon MD Primary Care Pro vider Reason for Referral * Consultation (Routine) - Authorized Specialty Diagnoses / Procedures Referred By Contac t Referred To Contact Gastroenterology Diagnoses Colon cancer screening Hx of gastric ulcer Nydia Simon MD [address] [place] [address] Phone: tel: fax: [facility] Referral ID Status Reason Start Date Expiration Date Visits Requested Visits Authorized [id number] Authorized Specialty Services Required 04/08/2025 04/08/2026 1 1 Encounter Details Date Type Department Care Team (Late st Contact Info) Description 04/08/2025 9:30 AM EDT Office Visit [facility] [address] [place] [address] [phone] Nydia Simon MD [address] [place] [address] [phone] Colon cancer screening (Primary Dx); Hx of gastric ulcer; Health care maintenance; Dementia associated with alcoholism, with psychotic disturbance, unspecified dementia severity (CMS/HCC); Pre-syncope Social History Tobacco Use Types Packs/Day Years [...] 9:38 AM EDT documented in this encounter Progress Notes * Nydia Eugene MD - 04/08/2025 9:30 AM EDT Subjective Patient ID: Joao Nicole is a 70 y.o. 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 Rns and MA came to assist He was sitting while this occurred and his Ox sat was 76% then came up to > 95% off supplemental oxygen but pt was placed on 2 L given concern of risk of deteriorating , HR 46x-55x,BP 86/ Could not hear diastolic ,Glucose > 90s . Pt did not have any involuntary movement , when was able to answer questions he denied having CP,nor SOB ,only reported to feel dizzy. We tried to do EKG in the room but pt felt very dizzy to move to bed. EMS arrived and took pt to the [facility]. Pt 's brother in law denied pt to have any similar events at home Unclear if this was from bradycardia vs vasovagal from evaluating his hand but doubt last given pt did not seem to be in pain from it and denied to have pain on exam. Gave today to relative info for head of mobile referred in the past and advise to schedule apt ------- Assessment and Plan: Health care maintenance -Annual exam 11/2024 -03/2023 T spot : neg -colonoscopy: never,--agreed today for GI referral sent today -PSA: 03/2023 wnl -vaccines: s/p COVID-none --advised x vaccine ,refuse for now , s/P p20 04/2023 ,flu vaccine 04/2023 s/p tdap 03/2023, advised shingrix vaccine -refuse for now ,hep A and hep B not immune -px Twinrix before never got vaccines and refuse now ------- -discussed today prior acute event about CODE status and pt confirmed DNR DNI -sister is HCP and will bring paperwork and advise to start guardianship HTN ASCVD: 20.4%--Rec for mod statins ,ASA BP is normal off meds-pt stopped amlodipine them months ago Pt reports was dxed w HTN since years ago, pt not following with any providers ,never started medications -EKG 2022 for baseline-NSR ,HR 71, QTc 432, no ischemic findings -03/2023 -Microalb neg -apt w top lift compressor scheduled for 07/2025 -continue to monitor BP off meds -advised to bring home BP readings at next apt --not cheking Gastric ulcer 2/2 drinking w hx of perforation Denies having gastric pain nor GERD -referred to GI to eval if need to repeat EGD--- never went ---referred today to GI -pt agreed Alcohol use-stopped hx of heavy drinking -beers,vodka-stopped 20 y ago--then was drinking beers 40 onz a day but stopped 11 months ago -03/2023 MCV 99.6 ( Mild elevated) , no anemia, vit B 12 ( 297) and folic acid wnl -INR wnl,PT 13.4(elevated) -continue to avoid ETOH use -continue MVI and thiamine daily Transaminitis -03/2023 AST 57,ALT 43 , LDL 116 ,trig 63,total chol 183, HDL 55 ASCVD: 20.4%--Rec for mod statins ,ASA -Advised pt in length to avoid ETOH as a likely cause of elevated LFTs , neg STI panel -repeat chem -referred for abd US w elastography never done -will reorder at next apt -pt wants to hold for now until completes current pd eval Hx of tobacco use Started 13 years of age until 61 y of age smoke for 48 years -used to smoke 10 cig a day--PQT a year calc 23 -stopped 5 years ago -referred for lung ca screening again-pd to schedule apt -- gave today again information to pt to call for apt Hx of late latent syphilis -03/2023 RPR 1:1, TPA + PT reports was tx 30 years ago at snf in [facility] for syphilis s/p 3 [facility] weekly Cognitive delay Vascular/alcohol associate severe dementia w agitation Hx of stroke w no neurologic focalizing findings -MR head/brain wo con 11/2024 :Left temporo-occipital encephalomalacia. Focal restricted diffusion within the bilateral occipital lobe consistent with acute ischemia.Punctate focus of restricted diffusion within the right thalamus. Changes of chronic microangiopathy with bilateral old lacunar infarcts of the basal ganglia. Globalvolume loss. Pt admitted at [facility] initially after found to have abnormal brain MRI ordered here to eval dementia, MRI showed infarcts w concern to be acute vs subacute,evaluated by neurologist CT head and CT angiogram described as unremarkable for any acute significant critical stenoses of large vessels occlu anjali or acute bleeding except for chronic vascular disease and old infarcts from hospital neurologyevaluation there was plan for Plavix for 3 months and then aspirin lifelong, Lipitor for goal of less than 70 treated for subacute stroke, there is mention he had echocardiogram with normal left atrial size and no thrombus,EF 60-65% . -from RN carli on 01/14/25 MOCA - 5 out of a possible 30 points. This is considered severe cognitive impairment and at an increased odds for dentia status. We must take into consideration that she has never completed any formal education so she was unable to complete some activities not due to mental capacity, but due to lack of education. -Saw neurologist Dr. Rapp patient has history of syphilis there is mention that he had an LP in 2013 not consistent with neurosyphilis and per neurologist he wanted to repeat RPR titers and if elevated the plan was to repeat LP -Neurologist started on Quetiapine 50 mg daily,also ASA 81 mg ,clopidogrel 75 mg daily ( plan to complete for 3 months only) ,vit B1 100 mg daily -advised to f w neurologist -sister and pt refusing MANAGER TRADING,VNA offered today-sister states pt has all day care bw son,sister and her , pt does sleeps alone -will inform if needs in future help to assist pt and if concern of care at night -referred to cards today to r/o cardiac etiology for stroke --gave today information to pt to call for apt -pd to get done all labs for annual exam , if noted elevated RPR will advise to get LP done as per neurologist rec CXR findings at [facility] there was initially hypoxemic 88% tx for COPD excerbation got steroids and mag EKG NSR no ischemic reported CXR diffuse intersittial prominence centrally areas of streaky consolidaiton within both lung bases R> L trace bl pleural effusion , impression hypoinflamation w mild volume overload pt and fx were offered to discharge w services but refused. -pt denies respiratory symptoms as chronic cough,wheezing nor SOB , hx of tobacco smoking -referred already to lung ca screening for CT scan of lungs Syncopal event As above documented in HPI -pt sent to ED today Constipation -will f at next apt if pt taken meds before for it , pt left to ED -referred to GI today Review of Systems Constitutional: Negative. Respiratory: Negative. Cardiovascular: Negative. Negative for chest pain, palpitations and leg swelling. Gastrointestinal: Positive for constipation. Neurological: Positive for dizziness (tody in office). Objective BP 104/70 (BP Location: Left arm, Patient Position: Sitting, BP Cuff Size: Adult) Pulse 86 Temp96.9 ??F (36.1 ??C) (Temporal) Resp 20 Ht 5' 7 (1.702 m) Wt 172 lb (78 kg) SpO2 97% BMI 26.94 kg/m?? Physical Exam Constitutional: General: He is in acute distress. HENT: Mouth/Throat: Mouth: Mucous membranes are moist. Eyes: Pupils: Pupils are equal, round, and reactive to light. Cardiovascular: Rate and Rhythm: Bradycardia present. Pulmonary: Effort: Pulmonary effort is normal. Breath sounds: Normal breath sounds. Musculoskeletal: Cervical back: Neck supple. Right lower leg: No edema. Left lower leg: No edema. Assessment/Plan Problem List Items Addressed This Visit Hx of gastric ulcer Relevant Orders Referral to Gastroenterology Health care maintenance Dementia associated with alcoholism (CMS/HCC) Pre-syncope Other Visit Diagnoses Colon cancer screening - Primary Relevant Orders Referral to Gastroenterology documented in this encounter Plan of Treatment Upcoming Encounters Date Type Department Care Team (Late st Contact Info) Description 07/26/2025 2:30 PM EST Office Visit [facility] [address] [place], [place] [phone] Brianna Cedeño, OD [address] [place] [address] Scheduled Referrals Name Type Priority Associated Diagnoses Order Schedule Referral to Gastroenterology Outpatient Referral Routine Colon cancer screening Hx of gastric ulcer Expected: 04/08/2025 (Approximate), Expires: 04/08/2026 documented as of this encounter Visit Diagnoses Diagnosis Colon cancer screening- Primary Special screening for malignant neoplasms, colon Hx of gastric ulcer Health care maintenance Dementia associated with alcoholism, with psychotic disturbance, unspecified dementia severity (CMS/HCC) Pre-syncope Syncope and collapse documented in this encounter Additional Health Concerns Assessment Noted Time PHQ-9 Depression Total Score: 0 04/16/20 23 9:14 AM EDT documented as of this encounter Care Teams Oracle Sql Developer Relationship Specialty Start Date End Date Nydia Simon MD [address] [place] [phone] PCP - General Internal Medicine 04/11/23 [place] 05/27/24 documented as of this encounter
--- NOTE | 2025-04-11 09:43 | MHC.OFFVIS ---
Intake Visit Reasons: 3 Months Allergies No Known Allergies Allergy (Verified 04/08/25 11:21) Medication List - Last Reconciled 04/11/25 by Bebeto Rapp MD aspirin 81 mg PO DAILY atorvastatin 40 mg PO DAILY clopidogrel 75 mg PO DAILY multivitamin with folic acid 400 mcg (Daily-Gricelda (with folic acid)) 1 tab PO DAILY quetiapine 25 mg PO TID PRN thiamine HCl (vitamin B1) 100 mg PO DAILY HPI Comments Details: 70 years old man with past medical history of exposure to alcohol, diagnosis of multifactorial dementia, large left and smaller right posterior cerebral artery ischemic infarct happening in with CTA of brain and neck revealing extensive anterior posterior circulation intracranial atherosclerotic disease resulting in multiple areas of stenoses. He is presenting with syncope. He experienced an episode of fainting, which lasted approximately three hours. During this time, he was reported to have been unresponsive though there were minor eye movements in response to stimuli. The conversation clarified the absence of shaking movements typically associated with seizures. Previous medical evaluations were conducted in the hospital, including various tests that returned normal results. Additionally, there was an initial misunderstanding regarding the patient's alcohol use, which was later clarified?he does not drink. An EEG was suggested during the conversation to investigate further the syncope event. [facility] Medical History (Updated 04/11/25 @ 09:53 by Bebeto Rapp MD) Recent cerebrovascular accident Dementia Alcohol use disorder HTN (hypertension) Surgical History Hx of abdominal surgery Social History (System 12/15/24 @ 14:38 by Gini Zamorano) Household Members: Unknown / Unable to assess Do you presently have visiting nurse or other home services: No Unable to assess alcohol history related to: Refusing to respond Alcohol intake: current Alcohol intake frequency: 0-2 drinks per day Alcohol type: beer Comment: sitter at bedside Patient Tobacco Use Status: Never used Tobacco Substance Use Type: Marijuana Advance Directives Date on File: 05/20/24 service: No Review of Systems Const Details: - General: Reports fainting episode. - Neurological: Denies seizure activity such as shaking. Physical Exam Neuro Other: Mental Status: Alert and oriented to person, place, and time. Normal attention. Normal spontaneous speech, fluency, and comprehension. Cranial Nerves: CN II: Visual ortiz full to confrontation, visual acuity intact. CN III, IV, : Pupils equal, round, reactive to light and accommodation. Extraocular movements are normal. CN V: Facial sensation is normal. CN VII: Facial movements symmetrical. CN VIII: Hearing intact to bedside conversation is normal. CN IX, X: Palate elevates symmetrically. CN XI: Shoulder shrug and head turn symmetrical. CN XII: Tongue midline without atrophy or fasciculations. Extrapyramidal: Full facial expressions and blinking. No rigidity. Movements are appropriate with no tremor or abnormality. Speech: Normal; no dysarthria or tremor. Assessment & Plan Assessment & Plan (1) Vascular dementia: Code(s): F01.50 - Vascular dementia, unspecified severity, without behavioral disturbance, psychotic disturbance, mood disturbance, and anxiety Category: Medical Qualifiers: Dementia severity: moderate Dementia behavioral or psychological symptom: with other behavioral disturbance Qualified Code(s): F01.B18 - Vascular dementia, moderate, with other behavioral disturbance (2) Multifactorial dementia: Code(s): F03.90 - Unspecified dementia, unspecified severity, without behavioral disturbance, psychotic disturbance, mood disturbance, and anxiety Category: Medical (3) Intracranial atherosclerosis: Code(s): I67.2 - Cerebral atherosclerosis Category: Medical (4) Multiple cerebral infarctions: Code(s): I63.9 - Cerebral infarction, unspecified Category: Medical (5) Syncope: Code(s): R55 - Syncope and collapse Category: Medical Qualifiers: Syncope type: unspecified Qualified Code(s): R55 - Syncope and collapse Plan Impression: 1. A syncopal episode that might be a seizure as he is significant risk for seizure disorder 2. Multiple cerebral infarcts 3. Multifactorial dementia mostly from vascular cause 4. Significant intracranial atherosclerotic stenosis resulting in multiple strokes Recommendations: Aspirin 81 mg daily Clopidogrel 75 mg daily Quetiapine 25 mg at night EEG No driving Orders: Orders EEG electroencephalogram Today R55 - Syncope and collapse Medications: New clopidogrel 75 mg PO DAILY 90 tabs 1RF Refilled aspirin 81 mg PO DAILY 90 tabs 1RF quetiapine 25 mg PO TID PRN 90 tabs 1RF agitation Coding Level of Care Code Est Pt Level 4 (57171) Diagnoses Moderate vascular dementia with other behavioral disturbance F01.B18 Dementia severity: moderate Dementia behavioral or psychological symptom: with other behavioral disturbance Multifactorial dementia F03.90 Intracranial atherosclerosis I67.2 Multiple cerebral infarctions I63.9 Syncope, unspecified syncope type R55 Syncope type: unspecified
--- OUTSIDE RECORDS SUMMARY | 2025-04-11 11:06 | XMS_ITS | Encounter Summary ---
Author Organization [employer] Address [address] [facility] 7t [place] [address] Care Team Providers Care Tax Manager Cpa Name Role Phone Nydia Simon MD Primary Care Pro vider Reason for Visit * Reason Onset Date Comments fyi 05/19/2024 Encounter Details Date Type Department Care Team ([facility] st Contact Info) Description 05/19/2024 Telephone [facility] MEDICINE [address] [place] [address] Nydia iSmon MD [address] [place] [address] fyi Social History Tobacco Use Types Packs/Day [...] 05/19/2024 3:44 PM EDT [facility] notifying pt will start home care services starting tomorrow 05/19/2024, Any questions callback Staci as she requests [phone] documented in this encounter Plan of Treatment Upcoming Encounters Date Type Department Care Team (Late st Contact Info) Description 07/26/2025 2:30 PM EST Office Visit [facility] OPTOMETRY [address] [place] [address] Brianna Cedeño, OD [address] [place] [address] documented as of this encounter Visit Diagnoses Not on filedocumented in this encounter Additional Health Concerns Assessment Noted Time PHQ-9 Depression Total Score: 0 04/16/20 9:14 AM EDT documented as of this encounter Care Teams Tax Manager Cpa Relationship Specialty Start Date End Date Nydia Simon MD [address] [place] [id number] PCP - General Internal Medicine 04/11/23 RenéSim 05/27/24 documented as of this encounter
--- OUTSIDE RECORDS SUMMARY | 2025-04-11 11:06 | XMS_ITS | Encounter Summary ---
Author Organization [employer] Address [address] [facility] 7t [place] [address] Care Team Providers Care Bb Shot Packer Name Role Phone Nydia Simon MD Primary Care Pro vider Reason for Visit * Reason Comments Med Refill Encounter Details Date Type Department Care Team ([facility] st Contact Info) Description 03/05/2025 Refill [facility] MED[facility] [address] [place] [address] Nydia Gotti MD [address] [place] [address] Social History Tobacco Use Types Packs/Day Years [...] PM EST Office Visit C OPTOMETRY [address] [place], [place] [phone] TarBrianna marinelli, OD [address] [place], [place] [phone] documented as of this encounter Visit Diagnoses Not on filedocumented in this encounter Additional Health Concerns Assessment Noted Time PHQ-9 Depression Total Score: 0 04/16/20 23 9:14 AM EDT documented as of this encounter Care Teams Bb Shot Packer Relationship Specialty Start Date End Date Nydia Simon MD [address] [place] [phone] PCP - General Internal Medicine 04/11/23 [employer] 05/27/24 documented as of this encounter
--- OUTSIDE RECORDS SUMMARY | 2025-04-11 11:06 | XMS_ITS | Clinical Summary ---
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 Assessment & Plan (06/10/2024 12:25 PM EST): C/w thiamin and multivitimin supplementation Family educated about his condition I will refer him to memory clinic [employer] 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 History of tobacco use 05/19/2023 Transaminitis 05/19/2023 Hx of gastric ulcer 05/19/2023 Hypertension 05/19/2023 Assessment & Plan (06/10/2024 12:25 PM EST): Controlled with current interventions Health care maintenance 05/19/2023 Resolved Problems Problem Noted Date Diagnosed Date Resolved Date Alcohol use 05/19/2023 02/05/2025 Encounters Date Type Department Care Team Description 04/08/2025 9:30 AM EDT Office Visit [address] [address] Nydia Simon MD Colon cancer screening (Primary Dx); Hx of gastric ulcer; Health care maintenance; Dementia associated with alcoholism, with psychotic disturbance, unspecified dementia severity (CMS/HCC); Pre-syncope 04/08/2025 Orders Only [facility] External Provider, [facility] 04/08/2025 Telephone [facility] MEDICINE [address] [place] [phone] Nella Little RN RAPID ASSIST 04/08/2025 Travel 04/07/[address] [address] Nydia Simon MD chart prep 03/22/[address] [address] Nydia Simon MD Med Refill 03/05/2025 Refill [facility]INE [address] [place] [phone] Nydia Gotti MD 02/10/[address] [address] Nydia Simon MD Appointment Request 02/04/2025 9:30 AM EDT Office Visit [address] [address] Nydia Simon MD History of tobacco use (Primary Dx); Health care maintenance; Transaminitis; Hypertension, unspecified type; Hospital discharge follow-up; Severe vascular dementia, unspecified whether behavioral, psychotic, or mood disturbance or anxiety (CMS/HCC); History of stroke; Abnormal CXR 02/04/2025 Travel 02/03/2025 Telephone [facility] MEDICINE [address] [place] [address] Nydia Simon MD chart prep 01/14/2025 10:30 AM EDT Clinical Support [facility] MEDICINE [address] [place] [address] Karen Menchaca RN Poor memory 01/14/2025 Travel [...] Description 07/26/2025 2:30 PM EST Office Visit [facility] OPTOMETRY [address] [place] [address] Brianna Cedeño, OD [address] [place] [address] Health Maintenance Due Date Last Done Comments [...] Procedure Name Priority Date/Time Associated Diagnosis Comments COVID-19 ID NOW (LEONARD) Routine 04/08/2025 2:47 PM EDT DRUG MONITOR, PANEL 1, SCREEN, URINE Routine 04/08/2025 2:47 PM EDT URINALYSIS WITH REFLEX MICROSCOPIC Routine 04/08/2025 2:[address] CHEST WO CONTRAST Routine 04/08/2025 2:29 PM EDT HEPATITIS C AB W/REFL TO HCV RNA, QN, PCR Routine 04/16/2023 10:38 AM EDT Health care maintenance LIPID PANEL, STANDARD Routine 04/16/2023 10:38 AM EDT Health care maintenance from Last 3 Months or Most Recently Relevant to Health Maintenance Results * COVID-19 ID NOW (LEONARD) (04/08/2025 2:47 PM EDT) IDNOW SERIAL# [id number] [facility] COVID-19 TEST Negative Negative [facility] COVID-19 NOTE See Note [facility] Comment: Results are for the identification of SARS-CoV2 RNA. TheSARS-CoV2 RNA is generally detectable in respiratory samplesduring the acute phase of infection. Positive results areindicative of the presence of SARS-CoV-2 RNA; clinicalcorrelation with patient history and other diagnosticinformation is necessary to determine patient infectionstatus. Positive results do not rule out bacterial infectionor co- infection with other viruses.Testing facilities within the [facility] and itsterritories are required to report all positive results tothe appropriate public health authorities.Negative results should be treated as presumptive and, ifinconsistent with clinical signs and symptoms or necessaryfor patient management, should be tested with differentauthorized or cleared molecular tests. Negative results donot preclude SARS-CoV2 RNA infection and should not be usedas the sole basis for patient management decisions. Negativeresults should be considered in the context of a patient'srecent exposures, history and the presence of clinical signsand symptoms consistent with COVID-19.This test has been authorized by the FDA under an EmergencyUse Authorization (EUA) for use by authorized laboratories.Testing performed on the Leonard ID NOW utilizing NAAT. 04/08/2025 2:47 PM EDT 04/08/2025 3:08 PM EDT us Generic External Data Provider LAB MOLECULAR SHARLENE GNOSTICS ORDERABLES Final Result [facility] [address] [place] [phone] * Drug Monitoring, Panel 1, Screen, Urine (04/08/2025 2:47 PM EDT) Opiate Screen Urine Not Detected Not Detect [facility] Comment:Opiate cut-off is 30 0 ng/mL.Positive results are unconfirmed and should not be used fornon-medical purposes. Barbiturates, Urine Not Detected Not Detect [facility] Comment:Barbiturate cut-off is 200 ng/mL.Positive results are unconfirmed and should not be used fornon-medical purposes. Phencyclidine Screen Urine Not Detected Not Detect [facility] Comment:Phencyclidine cut-of f is 25 ng/mL.Positive results are unconfirmed and should not be used fornon-medical purposes. Amphetamine Screen Urine Not Detected Not Detect [facility] Comment:Amphetamine cut-off is 1000 ng/mL.Positive results are unconfirmed and should not be used fornon-medical purposes. Benzodiazepines Screen Urine Not Detected Not Detect [facility] Comment:Benzodiazepine cut-o ff is 200 ng/mL.Positive results are unconfirmed and should not be used fornon-medical purposes. Cocaine Screen Urine Not Detected Not Detect [facility] Comment:Cocaine cut-off is 3 00 ng/mL.Positive results are unconfirmed and should not be used fornon-medical purposes. Cannabinoid Screen Urine Not Detected Not Detect [facility] Comment:Cannabinoid cut-off is 50 ng/mL.Positive results are unconfirmed and should not be used fornon-medical purposes. Methadone Screen, Urine Not Detected Not Detect ng/mL [facility] Comment:Methadone cut-off is 300 ng/mL.Positive results are unconfirmed and should not be used fornon-medical purposes. FENTANYL URINE Not Detected Not Detect [facility] Comment:Fentanyl cut-off is 1 ng/mL.Positive results are unconfirmed and should not be used fornon-medical purposes. Oxycodone Urine Screen Not Detected Not Detect ng/mL [facility] Comment:Oxycodone cut-off is 100 ng/mL.Positive results are unconfirmed and should not be used fornon-medical purposes. Buprenorphine Screen Not Detected Not Detect ng/mL [facility] Comment:Buprenorphine cut-of f is 5 ng/mL.Positive results are unconfirmed and should not be used fornon-medical purposes. 04/08/2025 2:47 PM EDT 04/08/2025 3:08 PM EDT Generic External Data Provider LAB URINE ORDERAB LES Final Result Performing Organization Address City/[facility]/ZIP Co de Phone Number [facility] [address] [place] [phone] * Urinalysis w/reflex microscopic (04/08/2025 2:47 PM EDT) Color Urine Yellow [facility] Appearance Urine Clear [facility] PH 6.0 5.0 - 9.0 [facility] Glucose Urine UA Negative Negative mg/dL [facility] Urine Blood Negative Negative [facility] Specific Somis - Urine <=1.005 1.005 - 1.025 [facility] Urine Protein Negative Neg-Trace mg/dL [facility] Urine Ketones Trace Negative mg/dL [facility] Nitrite Urine Negative Negative [facility] Leukocyte Esterase Urine Negative Negative [facility] 04/08/2025 2:47 PM EDT 04/08/2025 3:08 PM EDT Narrative [facility] - 04/08/2025 3:16 PM EDT [id number], [employer] us Generic External Data Provider LAB URINE ORDERAB LES Final Result Performing Organization Address City/[facility]/ZIP Co de Phone Number [facility] [address] [place] [phone] * CT Chest w/o Contrast (04/08/2025 2:29 PM EDT) Anatomical Region Laterality Modality Body, Chest Computed Tomogra phy 04/08/2025 2:29 PM EDT Narrative 04/08/2025 3:07 PM EDT [address] [address] [address] Scan Report Signed Patient: Joao Nicole Jr MR#: [id number] 0904 : 1955 Acct:[id number] Age/Sex: 70 / M ADM Date: 04/08/25 Loc: HO.ED Attending Dr: Ordering Physician: Con Abdullahi MD Date of Service: 04/08/25 Procedure(s): CT chest wo IV con Accession Number(s): [id number] cc: Nydia Gotti MD; Con Abdullahi MD Report Number: [id number]: Total DLP = 303.00 mGy-cm Reason for Exam: Altered mental status, evaluate for pneumonia EXAMINATION: CT CHEST WITHOUT CONTRAST CLINICAL INFORMATION: Altered Mental status. Evaluate for pneumonia. COMPARISON: 12/23/2024. Chest x-ray dated earlier same day. TECHNIQUE: Multidetector volumetric CT imaging of the chest was done. Axial MIP volume rendering provided. Sagittal and coronal reformatted images were obtained. This CT examination was performed using dose optimization techniques as appropriate, variously including the following: *Automated exposure control *Adjustment of mA and/or kV according to patient size (this includes techniques or standardized protocols for targeted exams where dose is matched to indication/reason for exam; i.e. extremities or head) *Use of iterative reconstruction technique FINDINGS: LUNGS: Lungs are well pneumatized bilaterally. There is mild linear atelectasis in both lung bases. There is no pneumonic consolidation or abnormal opacity. There is no interstitial abnormality. The small airways appear normal. There are no suspicious nodules. There is no effusion or pneumothorax. MEDIASTINUM: There is mild cardiac enlargement. There is no pericardial effusion. There is no mass or abnormal lymphadenopathy. Thyroid is normal. The aorta is mildly calcified but nonaneurysmal. The main pulmonary artery is normal in size. CORONARY ARTERY CALCIFICATION: Moderate. AXILLA/CHEST WALL: No mass or abnormal lymph nodes. UPPER ABDOMEN: There are a few calcified granulomata in the liver. 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 There is a small splenule remaining. OSSEOUS STRUCTURES: No suspicious lytic or blastic bone lesions. CT/CT chest wo IV con IMPRESSION: 1. There is no evidence of pneumonia. There is linear type atelectasis in both lung bases. Lungs are otherwise clear. 2. Mild cardiac enlargement. Moderate degree of coronary calcifications. 3. Additional ancillary findings as discussed in the body of the report. Electronically signed by: Frank Hurt MD 04/08/2025 03:04 PM EDT Dictated By: Frank Hurt MD Signed By: <Electronically signed by Frank Hurt MD in OV> 04/08/25 1504 DD/ 1429 TD/TT: 04/08/25 1451 Mental Health Professional: Procedure Note Donotuseinterpreter, Image - 04/08/[address] [place] [id number] [address] Scan Report Signed Patient: Joao Nicole [facility]#: [id number] 0904 : 1955cct:[id number] Age/Sex: 70 / MADM Date: 04/08/25 Loc: HO.ED Attending Dr: Ordering Physician: Con Abdullahi MD Date of Service: 04/08/25 Procedure(s): CT chest wo IV con Accession Number(s): [id number] cc: Nydia Gotti MD; Con Abdullahi MD Report Number: [id number]: Total DLP = 303.00 mGy-cm Reason for Exam: Altered mental status, evaluate for pneumonia EXAMINATION: CT CHEST WITHOUT CONTRAST CLINICAL INFORMATION: Altered Mental status. Evaluate for pneumonia. COMPARISON: 12/23/2024. Chest x-ray dated earlier same day. TECHNIQUE: Multidetector volumetric CT imaging of the chest was done. Axial MIP volume rendering provided. Sagittal and coronal reformatted images were obtained. This CT examination was performed using dose optimization techniques as appropriate, variously including the following: *Automated exposure control *Adjustment of mA and/or kV according to patient size (this includes techniques or standardized protocols for targeted exams where dose is matched to indication/reason for exam; i.e. extremities or head) *Use of iterative reconstruction technique FINDINGS: LUNGS: Lungs are well pneumatized bilaterally. There is mild linear atelectasis in both lung bases. There is no pneumonic consolidation or abnormal opacity. There is no interstitial abnormality. The small airways appear normal. There are no suspicious nodules. There is no effusion or pneumothorax. MEDIASTINUM: There is mild cardiac enlargement. There is no pericardial effusion. There is no mass or abnormal lymphadenopathy. Thyroid is normal. The aorta is mildly calcified but nonaneurysmal. The main pulmonary artery is normal in size. CORONARY ARTERY CALCIFICATION: Moderate. AXILLA/CHEST WALL: No mass or abnormal lymph nodes. UPPER ABDOMEN: There are a few calcified granulomata in the liver. 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 There is a small splenule remaining. OSSEOUS STRUCTURES: No suspicious lytic or blastic bone lesions. CT/CT chest wo IV con IMPRESSION: 1. There is no evidence of pneumonia. There is linear type atelectasis in both lung bases. Lungs are otherwise clear. 2. Mild cardiac enlargement. Moderate degree of coronary calcifications. 3. Additional ancillary findings as discussed in the body of the report. Electronically signed by: Frank Hurt MD 04/08/2025 03:04 PM EDT Dictated By: Frank Hurt MD Signed By: <Electronically signed by Frank Hurt MD in OV> 04/08/25 1504 DD/ 1429 TD/TT: 04/08/25 1451 Mental Health Professional: [facility] External Provider IMG CT PROCEDURES Edited Result - Final * Hepatitis C Antibody with Reflex to HCV, RNA, Quantitative, Real-Time PCR (04/16/2023 10:38 AM EDT) Hepatitis C Antibody Nonreactive Nonreactive [facility] Comment:Antibodies to HCV no t detected; does not exclude early acuteHCV infection. Blood Venous blood specimen / Unknown 04/16/2023 10:38 AM EDT 04/16/2023 1:07 PM EDT Nydia Eugene MD LAB BLOOD ORDERAB LES Final Result [facility] [address] [place] [phone] * (ABNORMAL) Lipid Panel, Standard (04/16/2023 10:38 AM EDT) Triglycerides 63 <150 mg/dL [facility] Comment:Desirable Triglyceri de: less than 150 mg/dLBorderline High Triglyceride 150-199 mg/dLHigh Triglyceride: 200-499 mg/dLVery High Triglyceride: greater than or equal to 5OO mg/dL Cholesterol 183 <200 mg/dL [facility] Comment:Desirable Cholestero l: less than 200 mg/dLBorderline High Cholesterol: 200-239 mg/dLHigh Cholesterol: greater than 239 mg/dL LDL Cholesterol Calculated 116(H) <100 mg/dL [facility] Comment:Desirable LDL: less than 100 mg/dLNear Optimal/Above Optimal LDL: 110- 129 mg/dLBorderline High LDL: 130-159 mg/dLHigh LDL: 160-189 mg/dLVery High LDL: greater than or equal to 190 mg/dL HDL Cholesterol 55 >40 mg/dL [facility] Comment:Desirable HDL: great er than 40 mg/dL Note: This HDL assay may give artificially low results in patients with liver disease. Blood Venous blood specimen / Unknown 04/16/2023 10:38 AM EDT 04/16/2023 1:07 PM EDT Nydia Eugene MD LAB BLOOD ORDERAB LES Final Result [facility] [address] [place] [phone] [phone] from Last 3 Months or Most Recently Relevant to Health Maintenance Insurance [facility] STANDARD [place] [phone] Care Teams Soap Press Feeder Relationship Specialty Start Date End Date Nydia Simon MD [address] [place] [address] PCP - General Internal Medicine 04/11/23 [employer] 05/27/24
--- OUTSIDE RECORDS SUMMARY | 2025-04-11 11:06 | XMS_ITS | Encounter Summary ---
Author Organization [employer] Address [address] [facility] 7t [place] [address] Care Team Providers Care Excellence Specialist Name Role Phone Nydia Simon MD Primary Care Pro vider Reason for Visit * Reason Onset Date Comments chart prep 04/07/2025 Encounter Details Date Type Department Care Team ([facility] st Contact Info) Description 04/07/2025 Telephone [facility] MEDICINE [address] [place] [address] Nydia Simon MD [address] [place] [address] chart prep Social History Tobacco Use Types [...] Description 07/26/2025 2:30 PM EST Office Visit [facility] OPTOMETRY [address] [place] [address] TarkaBrianna, OD [address] [place] [address] documented as of this encounter Visit Diagnoses Not on filedocumented in this encounter Additional Health Concerns Assessment Noted Time PHQ-9 Depression Total Score: 0 04/16/20 23 9:14 AM EDT documented as of this encounter Care Teams Excellence Specialist Relationship Specialty Start Date End Date Nydia Simon MD [address] [place] [phone] PCP - General Internal Medicine 04/11/23 [employer] 05/27/24 documented as of this encounter
--- OUTSIDE RECORDS SUMMARY | 2025-04-11 11:06 | XMS_ITS | Encounter Summary ---
Author Organization [employer] Address [address] [facility] 7t [place] [address] Care Team Providers Care Railroader Name Role Phone Nydia Simon MD Primary Care Pro vider Encounter Details Date Type Department Care Team ([facility] Contact Info) Description 04/08/2025 Orders Only [facility] External Provider, [facility] Social History Tobacco Use Types Packs/Day Years [...] Description 07/26/2025 2:30 PM EST Office Visit [facility] OPTOM[facility]RY [address] [place], [place] [phone] TarBrianna marinelli, OD [address] [place] [address] documented as of this encounter Procedures Procedure Name Priority Date/Time Associated Diagnosis Comments COVID-19 ID NOW (LEONARD) Routine 04/08/2025 2:47 PM EDT DRUG MONITOR, PANEL 1, SCREEN, URINE Routine 04/08/2025 2:47 PM EDT URINALYSIS WITH REFLEX MICROSCOPIC Routine 04/08/2025 2:[address] CHEST WO CONTRAST Routine 04/08/2025 2:29 PM EDT documented in this encounter Results * COVID-19 ID NOW (LEONARD) (04/08/2025 2:47 PM EDT) IDNOW SERIAL# [id number] [facility] COVID-19 TEST Negative Negative [facility] COVID-19 NOTE See Note [facility] Comment: Results are for the identification of SARS-CoV2 RNA. TheSARS-CoV2 RNA is generally detectable in respiratory samplesduring the acute phase of infection. Positive results areindicative of the presence of SARS-CoV-2 RNA; clinicalcorrelation with patient history and other diagnosticinformation is necessary to determine patient infectionstatus. Positive results do not rule out bacterial infectionor co- infection with other viruses.Testing facilities within the [facility] are required to report all positive results [...] use by authorized laboratories.Testing performed on the Education [employer] NOW utilizing NAAT. 04/08/2025 2:47 PM EDT 04/08/2025 3:08 PM EDT us Generic External Data Provider LAB MOLECULAR SHARLENE [employer]NO[employer] ORDERABLES Final Result [facility] [address] [place] [phone] * Drug Monitoring, Panel 1, Screen, Urine (04/08/2025 2:47 PM EDT) Opiate Screen Urine Not Detected Not Detect [facility] Comment:Opiate cut-off is 30 0 ng/mL.Positive results are unconfirmed and should not be used fornon-medical purposes. Barbiturates, Urine Not Detected Not Detect [facility] Comment:Barbiturate cut-off is 200 ng/mL.Positive results are unconfirmed and should not be used fornon-medical purposes. Phencyclidine Screen Urine Not Detected Not Detect [facility] Comment:Phencyclidine cut-of f is 25 ng/mL.Positive results are unconfirmed and should not be used fornon-medical purposes. Amphetamine Screen Urine Not Detected Not Detect [facility] Comment:Amphetamine cut-off is 1000 ng/mL.Positive results are unconfirmed and should not be used fornon-medical purposes. Benzodiazepines Screen Urine Not Detected Not Detect [facility] Comment:Benzodiazepine cut-o ff is 200 ng/mL.Positive results are unconfirmed and should not be used fornon-medical purposes. Cocaine Screen Urine Not Detected Not Detect [facility] Comment:Cocaine cut-off is 3 00 ng/mL.Positive results are unconfirmed and should not be used fornon-medical purposes. Cannabinoid Screen Urine Not Detected Not Detect [facility] Comment:Cannabinoid cut-off is 50 ng/mL.Positive results are unconfirmed and should not be used fornon-medical purposes. Methadone Screen, Urine Not Detected Not Detect ng/mL [facility] Comment:Methadone cut-off is 300 ng/mL.Positive results are unconfirmed and should not be used fornon-medical purposes. FENTANYL URINE Not Detected Not Detect [facility] Comment:Fentanyl cut-off is 1 ng/mL.Positive results are unconfirmed and should not be used fornon-medical purposes. Oxycodone Urine Screen Not Detected Not Detect ng/mL [facility] Comment:Oxycodone cut-off is 100 ng/mL.Positive results are unconfirmed and should not be used fornon-medical purposes. Buprenorphine Screen Not Detected Not Detect ng/mL [facility] Comment:Buprenorphine cut-of f is 5 ng/mL.Positive results are unconfirmed and should not be used fornon-medical purposes. 04/08/2025 2:47 PM EDT 04/08/2025 3:08 PM EDT us Generic External Data Provider LAB URINE ORDERAB LES Final Result [facility] [address] [place] [phone] * Urinalysis w/reflex microscopic (04/08/2025 2:47 PM EDT) Color Urine Yellow [facility] Appearance Urine Clear [facility] PH 6.0 5.0 - 9.0 [facility] Glucose Urine UA Negative Negative mg/dL [facility] Urine Blood Negative Negative [facility] Specific [place] - Urine <=1.005 1.005 - 1.025 [facility] Urine Protein Negative Neg-Trace mg/dL [facility] Urine Ketones Trace Negative mg/dL [facility] Nitrite Urine Negative Negative [facility] Leukocyte Esterase Urine Negative Negative [facility] 04/08/2025 2:47 PM EDT 04/08/2025 3:08 PM EDT Narrative [facility] - 04/08/2025 3:16 PM EDT [id number], Clean [employer] us Generic External Data Provider LAB URINE ORDERAB LES Final Result Performing Organization Address City/State/[facility] Co de Phone Number [facility] [address] [place] [address] [phone] * CT Chest w/o Contrast (04/08/2025 2:29 PM EDT) Anatomical Region Laterality Modality Body, Chest Computed Tomogra phy 04/08/2025 2:29 PM EDT Narrative 04/08/2025 3:07 PM EDT [address] [address] [address] Scan Report Signed Patient: Joao Nicole Jr MR#: [id number] 0904 : 1955 Acct:[id number] Age/Sex: 70 / M ADM Date: 04/08/25 Loc: .ED Attending Dr: Ordering Physician: Con Abdullahi MD Date of Service: 04/08/25 Procedure(s): CT chest wo IV con Accession Number(s): [id number] cc: Nydia Gotti MD; Con Abdullahi MD Report Number: [id number]: Total DLP = 303.00 mGy-cm Reason for [...] 04/08/25 1504 DD/ 1429 TD/TT: 04/08/25 1451 Manager Merchandise: Procedure Note Donotuseinterpreter, Image - 04/08/[address] [address] [address] Scan Report Signed Patient: Joao Niocle [facility]#: [id number] 0904 : 4Acct:[id number] Age/Sex: 70 / MADM Date: 04/08/25 Loc: HO.ED Attending Dr: Ordering Physician: Con Abdullahi MD Date of Service: 04/08/25 Procedure(s): CT chest wo IV con Accession Number(s): [id number] cc: Nydia Gotti MD; Con Abdullahi MD Report Number: [id number]: Total DLP = 303.00 mGy-cm Reason for [...] Frank Hurt MD 04/08/2025 03:04 PM EDT RP Dictated By: Frank Hurt MD Signed By: <Electronically signed by Frank Hurt MD in OV> 04/08/25 1504 DD/ 1429 TD/TT: 04/08/25 1451 Manager Merchandise: [facility] External Provider IMG CT PROCEDURES Edited Result - Final documented in this encounter Visit Diagnoses Not on filedocumented in this encounter Additional Health Concerns Assessment Noted Time PHQ-9 Depression Total Score: 0 04/16/20 23 9:14 AM EDT documented as of this encounter Care Teams Railroader Relationship Specialty Start Date End Date Nydia Simon MD [address] [place] [phone] PCP - General Internal Medicine 04/11/23 [employer] 05/27/24 documented as of this encounter
--- OUTSIDE RECORDS SUMMARY | 2025-04-11 11:06 | XMS_ITS | Encounter Summary ---
Author Organization [employer] Address [address] [facility] 7t [place] [address] Care Team Providers Care Precision Grinder External Name Role Phone Nydia Simon MD Primary Care Pro vider Reason for Visit * Reason Onset Date Comments Med Refill 03/22/2025 Encounter Details Date Type Department Care Team (Late st Contact Info) Description 03/22/2025 Telephone [facility] MEDICINE [address] [place] [address] Nydia Simon MD [address] [place] [address] Med Refill Social History Tobacco Use Types [...] 10:05 AM EDT Script was sent to [facility] on 02/04/25 90 day supply. * Telephone Encounter - Reuben Elizalde - 03/22/2025 9:49 AM EDT TC from pt requesting medication refill. Medications needing refill : thiamine (Vitamin B-1) 100 MG tablet To be sent to: [id number] - [place] [phone] [facility] documented in this encounter Plan of Treatment Upcoming Encounters Date Type Department Care Team (Late st Contact Info) Description 07/26/2025 2:30 PM EST Office Visit [facility] OPTOMETRY [address] [place] [address] Brianna Cedeño, OD [address] [place] [address] documented as of this encounter Visit Diagnoses Not on filedocumented in this encounter Additional Health Concerns Assessment Noted Time PHQ-9 Depression Total Score: 0 04/16/20 23 9:14 AM EDT documented as of this encounter Care Teams Precision Grinder External Relationship Specialty Start Date End Date Nydia Simon MD [address] [place] [phone] PCP - General Internal Medicine 04/11/23 [employer] 05/27/24 documented as of this encounter
--- OUTSIDE RECORDS SUMMARY | 2025-04-11 11:06 | XMS_ITS | Encounter Summary ---
Author Organization [employer] Address [address] [facility] 7t [place] [address] Care Team Providers Care Information Technology Analyst Name Role Phone Nydia Simon MD Primary Care Pro vider Reason for Visit * Reason Onset Date Comments Hospital Follow-up 05/21/2024 Encounter Details Date Type Department Care Team (Late st Contact Info) Description 05/21/2024 Telephone [facility] MEDICINE [address] [place] [address] Nydia Simon MD [address] [place] [address] Hospital Follow-up Social History Tobacco Use Types [...] from pt requesting a HDF appt. Hospital: [facility] Date of admission: 05/15/24 Discharge date: 05/19/24 Diagnosed: Dementia documented in this encounter Plan of Treatment Upcoming Encounters Date Type Department Care Team (Late st Contact Info) Description 07/26/2025 2:30 PM EST Office Visit [facility] OPTOMETRY [address] [place] [address] Brianna Cedeño, OD [address] [place] [address] documented as of this encounter Visit Diagnoses Not on filedocumented in this encounter Additional Health Concerns Assessment Noted Time PHQ-9 Depression Total Score: 0 04/16/20 9:14 AM EDT documented as of this encounter Care Teams Information Technology Analyst Relationship Specialty Start Date End Date Nydia Simon MD [address] [place] [phone] PCP - General Internal Medicine 04/11/23 [employer] 05/27/24 documented as of this encounter
--- OUTSIDE RECORDS SUMMARY | 2025-04-11 11:06 | XMS_ITS | Encounter Summary ---
Author Organization [employer] Address [address] [facility] [address] [address] 7[address] [place] [address] Care Team Providers Care Central Sterile Tech Name Role Phone Nydia Simon MD Primary Care Pro vider Reason for Visit * Reason Onset Date Comments RAPID ASSIST 04/08/2025 Encounter Details Date Type Department Care Team ([facility] st Contact Info) Description 04/08/2025 Telephone [facility] MEDICINE [address] [place] [address] Nella Little, KAYLA [address] [place] [address] RAPID ASSIST Social History Tobacco Use Types [...] AM EDT ASSESSMENT: Joao Nicole presents to [facility] for routine follow up. Was in the exam room withhis [id number] and PCP Dr Thurston. Delmy Thurston was [...] to EMS: Yes Joao Nicole transported to [facility] at 10:28am. Family member notified: Yes, [...] Description 07/26/2025 2:30 PM EST Office Visit [facility] OPTOMETRY [address] [place] [address] TarBrianna marinelli, OD [address] [place], [place] [phone] documented as of this encounter Visit Diagnoses Not on filedocumented in this encounter Additional Health Concerns Assessment Noted Time PHQ-9 Depression Total Score: 0 04/16/20 23 9:14 AM EDT documented as of this encounter Care Teams Central Sterile Tech Relationship Specialty Start Date End Date Nydia Simon MD [address] [place] [phone] PCP - General Internal Medicine 04/11/23 [employer] 05/27/24 documented as of this encounter
--- OUTSIDE RECORDS SUMMARY | 2025-04-11 11:06 | XMS_ITS | Encounter Summary ---
Author Organization [employer] Address [address] [facility] [address] 7[address] [place] [address] Care Team Providers Care Sales Receptionist Name Role Phone Nydia Simon MD Primary [...] Description 07/26/2025 2:30 PM EST Office Visit [facility] OPTOMETRY [address] [place] [address] TarBrianna marinelli, OD [address] [place], [place] [phone] documented as of this encounter Visit Diagnoses Not on filedocumented in this encounter Additional Health Concerns Assessment Noted Time PHQ-9 Depression Total Score: 0 04/16/20 23 9:14 AM EDT documented as of this encounter Care Teams Sales Receptionist Relationship Specialty Start Date End Date Nydia Simon MD [address] [place] [phone] PCP - General Internal Medicine 04/11/23 [employer] 05/27/24 documented as of this encounter
== END 2025-04-11 10:01 | disposition home or self-care (01) ==
LOC: HO.HSM 09:25
PROVIDERS: PCP Student in an Organized Health Care Education/Training Program; Referring Provider Family Medicine; Visit Provider Psychiatry & Neurology Neurology
DX: F01.B18 Vascular dementia, moderate, with other behavioral disturbance (principal); F03.90 Unspecified dementia, unspecified severity, without behavioral disturbance, psychotic disturbance, mood disturbance, and anxiety; I67.2 Cerebral atherosclerosis; I63.9 Cerebral infarction, unspecified; R55 Syncope and collapse
CPT/HCPCS: 99214

== ENCOUNTER → 2025-04-11 09:24 | Outpatient (BNVA) | payer MEDICARE, MEDICAID, SELFPAY | PROVIDERS: PCP Student in an Organized Health Care Education/Training Program; Referring Provider Family Medicine; Visit Provider Psychiatry & Neurology Neurology | DX: F01.B18 Vascular dementia, moderate, with other behavioral disturbance (principal); I67.2 Cerebral atherosclerosis; R55 Syncope and collapse; Z86.73 Personal history of transient ischemic attack (TIA), and cerebral infarction without residual deficits; Z79.82 Long term (current) use of aspirin; Z79.899 Other long term (current) drug therapy | CPT/HCPCS: 99212 ==

== ENCOUNTER 2025-04-22 09:49 | Outpatient (REF) | payer MEDICARE, MEDICAID, SELFPAY ==
--- NOTE | 2025-04-22 09:50 | EEG_ITS ---
Roomed Performed:?402 Reason: Syncope and collapse History: cerebrovascular, dementia, alcohol use disorder, HTN, patient experienced an episode of fainting which lasted approximately three hrs. he was unresponsive thought there were minor eye movements in response to stimuli Medication: aspirin, clopidogrel, quetiapine Technical description:? Photic stimulation: completed Hyperventilation:?stopped, patient was unable to understand command Behavioral state: cooperative, unable to state State of Consciousness: awake Skull defect: none Sedation: none Handedness: Right Duration of study:? 30min ? ? 30sec Description: This is a 16 channel EEG with an EKG lead. Patient is reported awake during the tracing. Background EEG rhythm is about 10 hertz 5-20 microvolt posteriorly and lower amplitude fast anteriorly. Photic stimulation does not produce any significant driving. Hyperventilation could not be performed. Cardiac lead did not produce any significant abnormality. No sharp wave spikes or paroxysmal tendency noted. Impression: No significant abnormality noted on this EEG. MTDD
== END 2025-04-22 09:50 | disposition home or self-care (01) ==
LOC: HO.NEURO 09:49
PROVIDERS: Visit Provider Psychiatry & Neurology Neurology
DX: R55 Syncope and collapse (principal)
CPT/HCPCS: 95816

== ENCOUNTER → 2025-04-22 09:50 | Outpatient (BNV) | payer MEDICARE, MEDICAID, SELFPAY | PROVIDERS: Visit Provider Psychiatry & Neurology Neurology | DX: R55 Syncope and collapse (principal) | CPT/HCPCS: 95816 ==

== ENCOUNTER 2025-05-05 15:26 | Outpatient (AMB) | payer MEDICARE, MEDICAID, SELFPAY ==
--- NOTE | 2025-05-05 15:49 | A.OFFVIS_ITS ---
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 He is presenting with medication management and evaluation following a history of stroke. Previously, the patient experienced a stroke that resulted in lasting behavioral changes. To manage these changes, he is prescribed quetiapine to be taken twice daily. Additionally, he is on a regimen of aspirin and clopidogrel (Plavix) for secondary stroke prevention. Over the past year, neurological assessments have been performed, and the results have shown no evidence of seizures or epilepsy. This negative finding confirms the absence of these conditions and focuses the management on the behavioral effects of the prior stroke. [facility] Medical History (Updated 05/05/25 @ 15:58 by Bebeto Rapp MD) Recent cerebrovascular accident Dementia Alcohol use disorder HTN (hypertension) Surgical History Hx of abdominal surgery Social History (System 12/15/24 @ 14:38 by Gini Zamorano) Household Members: Unknown / Unable to assess Do you presently have visiting nurse or other home services: No Unable to assess alcohol history related to: Refusing to respond Alcohol intake: current Alcohol intake frequency: 0-2 drinks per day Alcohol type: beer Comment: sitter at bedside Patient Tobacco Use Status: Never used Tobacco Substance Use Type: Marijuana Advance Directives Date on File: 05/20/24 service: No Review of Systems Const Details: - Neurological: Denies seizures, denies epilepsy - Medications: Reports taking quetiapine, aspirin, and clopidogrel Physical Exam Neuro Other: Mental Status: Alert and oriented to person, place, and time. Normal attention. Normal spontaneous speech, fluency, and comprehension. Cranial Nerves: CN II: Visual ortiz full to confrontation, visual acuity intact. CN III, IV, : Pupils equal, round, reactive to light and accommodation. Extraocular movements are normal. CN V: Facial sensation is normal. CN VII: Facial movements symmetrical. CN VIII: Hearing intact to bedside conversation is normal. CN IX, X: Palate elevates symmetrically. CN XI: Shoulder shrug and head turn symmetrical. CN XII: Tongue midline without atrophy or fasciculations. Slight do might base cautious gait with slightly stooped posture. Extrapyramidal: Full facial expressions and blinking. No rigidity. Movements are appropriate with no tremor or abnormality. Speech: Normal; no dysarthria or tremor. Assessment & Plan Assessment & Plan (1) Vascular dementia: Comment: MRI brain WO at [facility] in November 2024: Acute R DATA ENTRY PROCESSOR infarct and the lesions noted on CTA CTA brain and neck at [facility] in December 2024: Mod cerebellar and cerebral atrophy, large left parieto-occipital chronic infarct, b/l MCA area embolic looking chronic infarcts, mod MVD, multiple areas of intracranial atherosclerotic stenosis and occlusion EEG at [facility] in Apr 2025: WNL EEG at [facility] in 2023: WNL Code(s): F01.50 - Vascular dementia, unspecified severity, without behavioral disturbance, psychotic disturbance, mood disturbance, and anxiety Category: Medical Qualifiers: Dementia severity: moderate Dementia behavioral or psychological symptom: with other behavioral disturbance Qualified Code(s): F01.B18 - Vascular dementia, moderate, with other behavioral disturbance (2) Multifactorial dementia: Code(s): F03.90 - Unspecified dementia, unspecified severity, without behavioral disturbance, psychotic disturbance, mood disturbance, and anxiety Category: Medical (3) Intracranial atherosclerosis: Code(s): I67.2 - Cerebral atherosclerosis Category: Medical (4) Multiple cerebral infarctions: Code(s): I63.9 - Cerebral infarction, unspecified Category: Medical (5) Behavior disturbance: Code(s): F91.9 - Conduct disorder, unspecified Category: Medical (6) Multifactorial dementia: Code(s): F03.90 - Unspecified dementia, unspecified severity, without behavioral disturbance, psychotic disturbance, mood disturbance, and anxiety Category: Medical Plan Impression: a: Vascular dementia with behavioral symptoms b: H/O alcohol abuse c: Multifactorial dementia d: Intracranial atherosclerosis Rec: a: Aspirin 81mg a day b: Clopidogrel 75mg a day c: Quetiapine one a day Medications: New quetiapine 25 mg PO DAILY 90 tabs 1RF Coding Level of Care Code Est Pt Level 4 (65725) Diagnoses Moderate vascular dementia with other behavioral disturbance F01.B18 Dementia severity: moderate Dementia behavioral or psychological symptom: with other behavioral disturbance Multifactorial dementia F03.90 Intracranial atherosclerosis I67.2 Multiple cerebral infarctions I63.9 Behavior disturbance F91.9
== END 2025-05-05 16:01 | disposition home or self-care (01) ==
LOC: HO.HSM 15:27
PROVIDERS: PCP Student in an Organized Health Care Education/Training Program; Visit Provider Psychiatry & Neurology Neurology
DX: F01.B18 Vascular dementia, moderate, with other behavioral disturbance (principal); F03.90 Unspecified dementia, unspecified severity, without behavioral disturbance, psychotic disturbance, mood disturbance, and anxiety; I67.2 Cerebral atherosclerosis; I63.9 Cerebral infarction, unspecified; F91.9 Conduct disorder, unspecified
CPT/HCPCS: 99214

== ENCOUNTER → 2025-05-05 15:26 | Outpatient (BNVA) | payer MEDICARE, MEDICAID, SELFPAY | PROVIDERS: PCP Student in an Organized Health Care Education/Training Program; Visit Provider Psychiatry & Neurology Neurology | DX: F01.B18 Vascular dementia, moderate, with other behavioral disturbance (principal); F03.90 Unspecified dementia, unspecified severity, without behavioral disturbance, psychotic disturbance, mood disturbance, and anxiety; I67.2 Cerebral atherosclerosis; I63.9 Cerebral infarction, unspecified; F91.9 Conduct disorder, unspecified; Z79.82 Long term (current) use of aspirin | CPT/HCPCS: 99212 ==